=== PATIENT | female | born 1945 | race Caucasian/White ===

== ENCOUNTER 2016-03-28 12:15 | Inpatient (IN) | payer OTHER ==
[2016-05-09 12:45] LABS: % IMMATURE GRANULYOCYTES 0.3 % (0.0-1.1); ABSOLUTE IMMATURE GRANULOCYTES 0.02 10^3/uL (0.00-0.10); ADD DIFF? NO; ADD MORPH? NO; ADD SCAN? NO; ATYPICAL LYMPHOCYTE FLAG 0 (0-99); FRAGMENT RBC FLAG 0 (0-99); HEMATOCRIT 44.5 % (38.0-47.0); HEMOGLOBIN 14.1 g/dL (12.6-16.3); LEFT SHIFT FLG 0 (0-99); LIPEMIA HEMOLYSIS FLAG 80 (0-99); MEAN CELL HEMOGLOBIN 30.3 pg (27.9-34.1); MEAN CELL HEMOGLOBIN CONCENTR. 31.7 g/dL (32.4-36.7); MEAN CELL VOLUME 95.5 fL (81.5-99.8); MEAN PLATELET VOLUME 9.2 fL (8.7-11.7); PLATELET CLUMPS FLAG 0 (0-99); PLATELET COUNT 335 10^3/uL (150-400); RED BLOOD CELL COUNT 4.66 10^6/uL (4.18-5.33); RED CELL DISTRIBUTION WIDTH 14.6 % (11.5-15.2)
[2016-05-16] MEDS ORDERED: LIDOCAINE 1% 5 ML SDV ONE (06:32)
[2016-05-16] MEDS ORDERED: BUPIVACAINE/EPI 0.25% 30 ML SDV ONE (06:38)
[2016-05-16] MEDS ORDERED: THROMBIN (RECOMBINANT) 20,000 UNIT VIAL TP ONE (06:38)
[2016-05-16] MEDS ORDERED: BACITRACIN 50,000 UNITS/10 ML SYR IRR ONE (06:38)
[2016-05-16] MEDS ORDERED: LIDOCAINE 1% 5 ML SDV ID PRN (07:08)
[2016-05-16 07:16] LABS: INR 0.96 (0.83-1.16); PROTIME(PATIENT) 12.7 SEC (12.0-15.0)
[2016-05-16] MEDS ORDERED: MIDAZOLAM 2 MG/2 ML VIAL ONE (07:17)
[2016-05-16] MEDS ORDERED: PROPOFOL/EMULSION 500 MG/50 ML BOTTLE IV ONE ×3 (07:25→10:54)
[2016-05-16] MEDS ORDERED: DEXAMETHASONE 4 MG/ML VIAL ONE ×2 (07:25)
[2016-05-16] MEDS ORDERED: ROCURONIUM 50 MG/5 ML VIAL ONE (07:25)
[2016-05-16] MEDS ORDERED: METOCLOPRAMIDE 10 MG/2 ML VIAL ONE (07:25)
[2016-05-16] MEDS ORDERED: LIDOCAINE 2% 100 MG/5 ML SYR IVP ONE (07:25)
[2016-05-16] MEDS ORDERED: PHENYLEPHRINE 10 MG/ML SDV ONE (07:25)
[2016-05-16] MEDS ORDERED: traMADol 50 MG TAB PO PRN (08:11)
[2016-05-16] MEDS ORDERED: DOCUSATE SODIUM 100 MG CAP PO PRN (08:11)
[2016-05-16] MEDS ORDERED: Epinephrine [Epipen 0.3 Mg] IM PRN (08:11)
[2016-05-16] MEDS ORDERED: LACTULOSE 20 GM/30 ML UDCUP PO PRN (08:20)
[2016-05-16] MEDS ORDERED: HYDROmorphONE/DILAUDID 1 MG/ML SYR IVP PRN (08:20)
[2016-05-16] MEDS ORDERED: ONDANSETRON 4 MG/2 ML VIAL IVP PRN (08:20)
[2016-05-16] MEDS ORDERED: BISACODYL 10 MG SUPP PR PRN (08:20)
[2016-05-16] MEDS ORDERED: DIAZEPAM 5 MG TAB PO PRN (08:20)
[2016-05-16] MEDS ORDERED: HYDROmorphONE/DILAUDID 6 MG/30 ML PCA IV PRN (08:20)
[2016-05-16] MEDS ORDERED: MAGNESIUM HYDROXIDE 30 ML UDCUP PO PRN (08:20)
[2016-05-16] MEDS ORDERED: DIAZEPAM 10 MG/2 ML SYR IVP PRN (08:20)
[2016-05-16] MEDS ORDERED: NALOXONE HCL 0.4 MG/ML INJ IVP PRN (08:20)
[2016-05-16] MEDS ORDERED: ACETAMINOPHEN 325 MG TAB PO PRN (08:20)
[2016-05-16] MEDS ORDERED: ONDANSETRON DISINTEGRATING 4 MG TAB PO PRN (08:20)
[2016-05-16] MEDS ORDERED: POLYETHYLENE GLYCOL 3350 17 GM PKT PO PRN (08:20)
[2016-05-16] MEDS ORDERED: diphenhydrAMINE 25 MG CAP PO PRN (08:20)
[2016-05-16] MEDS ORDERED: NS W/ 20 KCl/L 1,000 ML IV SCH (08:30)
[2016-05-16] MEDS ORDERED: NEOMY SULF/BACITRAC ZN/POLY 30 GM OINTTUBE TP ONE (13:49)
[2016-05-16] MEDS ORDERED: fentaNYL 100 MCG/2 ML INJ ONE (13:49)
[2016-05-16] MEDS ORDERED: HYDROmorphONE/DILAUDID 2 MG/ML SYR ONE (13:57)
[2016-05-16] MEDS ORDERED: DIAZEPAM 10 MG/2 ML SYR ONE (14:07)
--- NOTE | 2016-05-16 14:08 | SOAPPROG ---
SOAP Progress Note Assessment/Plan: Post Op Visit: S: Awake and alert. NAD. Pt with expected lower back pain O: AFVSS/PERRLA/EOMI no droop CN 2-12 grossly intact +lt touch SHOBHA x [address] A/P: 70 yo female that is s/p TLIF at L5/S1 with new PSF L3-S1 -orders in place -call with any questions or concerns -pt seen by Dr Armas as well 05/16/16 14:05 Objective: Laboratory Results 05/09/16 12:30 PT 12.7 SEC (12.0-15.0) 05/16/16 06:35 INR 0.96 (0.83-1.16) 05/16/16 06:35 ICD10 Worksheet Patient Problems: Problems Problem Status Onset Cellulitis of foot Active Abscess of toe of right foot Acute Arthrodesis status Acute Cellulitis of toe of right foot Acute Lumbar radiculitis Acute Lumbar stenosis Acute Olecranon bursitis of left elbow Acute - ICD10 Problem Qualifiers (1) Arthrodesis status
[2016-05-16] MEDS: NS IV ONE ×2 (14:42→17:39)
[2016-05-16] MEDS: CHLORHEXIDINE GLUC HIBICLENS 118 ML BTL TP ONE ×2 (14:42→17:39)
[2016-05-16] MEDS: DAPTOMYCIN IV ONE ×2 (14:42→17:39)
[2016-05-16] MEDS: LR 1,000 ML IV ONE ×2 (14:43→17:39)
[2016-05-16] MEDS: FAMOTIDINE 20 MG/NACL 50 ML IV SCH ×3 (14:44→22:29)
[2016-05-16] MEDS: CYANO/VITAMIN B12 100 MCG TAB PO SCH ×3 (14:44→22:27)
[2016-05-16] MEDS: CALCIUM CARB W/VIT D 500 MG TAB PO SCH ×2 (14:44→17:40)
[2016-05-16] MEDS: PREGABALIN 50 MG CAP PO SCH ×3 (14:44→22:28)
[2016-05-16] MEDS: SULFAMETHOX/TMP 800/160 MG 1 TAB PO SCH ×3 (14:44→22:47)
[2016-05-16] MEDS: POTASSIUM CL 20 MEQ TAB PO SCH ×2 (14:45→17:41)
[2016-05-16] MEDS ORDERED: HYDROCORTISONE 100 MG/2 ML VIAL IVP ONE (14:52)
[2016-05-16] MEDS ORDERED: DEXMEDETOMIDINE HCL 400 MCG in NS 100 ML IV SCH ×2 (15:00)
--- NOTE | 2016-05-16 15:28 | GOP ---
[f rep st] OPERATIVE REPORT DATE OF OPERATION: 05/16/2016 SURGEON: Charli Armas MD STUDENT RECRUITER: Yunier Cabral PA-C. 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 PROCEDURE PERFORMED: Removal of posterior segmental instrumentation L3, L4, and L5, new posterior s egmental instrumentation L3, L4, L5, S1, spinal stereotaxy, right L4-5 re-do exploration of the righ t lateral recess and decompression of the exiting L4 nerve root and right lateral recess decompressi on of the L5 nerve root ([id number]), posterolateral arthrodesis only L4-5 ([id number]), posterolateral and in tervertebral arthrodesis with decompression L5-S1 ([id number]), placement of biomechanical intervertebral device L5-S1 ([id number]), repair of L5-S1 midline durotomy without laminectomy, microscope, same-incisi on bone graft harvest. FINDINGS: ESTIMATED BLOOD LOSS: 350 cc. DESCRIPTION OF PROCEDURE: The patient was taken to the operating room, placed in supine position. General anesthesia was begun. She was flipped prone onto the Isaias table. Care was taken to pad all points of contact. Her back was sterilely prepped 4 separate times. 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 She was sterilely draped in the usual fashion. We opened the prior incision, exposed from the sp inous process of L2 and the prior hardware at L3, 4, 5, all way down to S1. We were exposing L5-S1 and we were using the plasma blade for our dissection because of the prior hardware. There was wide splaying of the L5-S1 lamina because of the kyphosis and, really, an abnormal space measuring over 2 cm between the L5 lamina and the S1 lamina. A small midline durotomy was made here using the plas ma blade as we were dissecting. We placed a small cottonoid into this defect and some CSF did leak, but we continued our exposure and removed all over her screws. The hardware was completely intact. We then decorticated all the posterolateral bone bilaterally at L3-4, L4-5 and L5-S1, and denuded the bilateral L5-S1 facet joints and the sacral ala bilaterally. This was done to ensure posterolat eral arthrodesis. We attached the Stealth reference frame to the S1 spinous process, performed an O -arm spin, and using frameless Stealth stereotaxy, we placed pedicle screws at S1. We used 7.5 mm s crews at L5. We inspected the scan and indeed she did have a pseudoarthrosis at L4-5. There was so lid bony union at L3-4. We placed bilateral screws at L3. These L3 screws and the L4 screws were t he same diameter as the prior screws. We placed 7.5 mm screws at L5 because this hole was slightly enlarged by the pseudarthrosis. We placed a 6.5 mm screws at S1, had excellent bony purchase. Her bone was indeed somewhat soft, presumably due to the steroid use. We took 90 mm rods, placed them d own over the screws, and got some reduction of her anterior kyphosis between L3 and the sacrum. We final-tightened the cap screws according to company specification. We then introduced the operating microscope and under the scope we drilled bilateral laminectomy at L5-S1 and opened ligamentum flav um on the patient's left-hand side. The small durotomy was just to the right in the midline at L5-S 1. As we worked our way over to the right where the infected durotomy was, the dura itself was firm ly adherent to the L5 arch. This was not present on the left-hand side. It was also firmly adheren t to the S1 arch. This took considerable time under the microscope to dissect the ligamentum flavum free from the dura. We were eventually able to completely circumscribe the midline area of the dur otomy and then worked our way over in the right lateral recess and decompressed the S1 root adjacent to the S1 pedicle. The rostral lamina of L5 on the right-hand side was completely adherent to the dura and could not be . We were able to completely isolate the small midline durotomy gilberto uring about 3 mm in length. There was a durotomy made with the plasma blade and the edges of the du ra looked very healthy. We placed a 0.25 x 0.25 mm cottonoid into the dura to ensure the nerve root s were held well away from the small durotomy, and we closed it using a combination of interrupted a nd running 6-0 Prolene sutures, and we were able to remove the 0.25 x 0.25 mm cottonoid and then we completely closed in watertight fashion. We never saw any additional CSF leaking from this area. U nder the scope, we then worked diligently in the right neural foramen at L5-S1 and, indeed, we perfo rmed a complete facetectomy on that side, and the L5-S1 disc was hard and calcified and protruding u p into the L5 nerve root. The superior articular process of the sacrum also was consistent with wha t we had seen on the MRI was protruding upward into the L5 nerve root. There was remarkable samy anali on the nerve in the neural foramen. We then worked our way along the L5 nerve root medially up adjacent to the L5 pedicle and continued decompressing, disconnecting the pars interarticularis fro m the rostral arch of L5, and this allowed the rostral arch of L5 to float up off the lateral thecal sac, performing a nice decompression, even though we could not completely remove this bone. We fol lowed the lateral border of L5 up to the L4-5 level where there was substantial scar, and then worke d our way along the rostral aspect of the L5 pedicle and the neural foramen where we removed some of the prior scar tissue. The exiting L4 nerve root was identified and deep to the L4 root at the dis k space was calcified bony hypertrophy coming out of the disk. We then removed this material, fract ured down into the disk space, and it was removed. It was easily from the exiting L4 nerv e root and we worked our way under the thecal sac, decompressing the lateral thecal sac. This was a re-do decompression at L4-5 and was an additional procedure that we had made the decision to do thi s based upon our intraoperative O-arm imaging that did indeed demonstrate some calcification within the right lateral recess at L4-5. There is also similar findings at L5-S1, interestingly. We then turned our attention down to L5-S1, where we drilled out the large bone spur coming out of the disk space into the L5 nerve root, protecting the nerve root with a nerve root retractor, and this bone w as completely removed. We then completely removed the disk and the cartilaginous endplates at L5-S1 and progressively sized for our implant at that level. We placed a little BMP in the disk space an d chose a 7 x 23 mm device. We had achieved excellent decompressions at L4-5 and the right lateral recess at L5-S1 and L4-5. We had decompressed the exiting L4 root in its foramen, the exiting L5 ne rve root in its foramen, and even S1 root. We expanded the L5-S1 intervertebral device under fluoro scopic guidance. We then decorticated all the posterolateral bone from L3 to S1. We ensured all th e cap screws were torqued to company specification. We placed the remaining BMP posterolaterally bi laterally at L4-5, L5-S1. We did not place any additional up at L3-4 where there was solid bony uni on. We then performed Valsalva to 40 and there was absolutely no leakage of CSF and we were happy w ith the watertight closure. Not even a single molecule of water could be seen emanating from our 6- 0 Prolene closure. We then placed a subfascial drain, closed the incision in multiple layers using Vicryl sutures. A running PDS was placed in the skin itself. The patient was reversed from anesthe josr, extubated, and transferred to the recovery room in stable condition. COMPLICATIONS: Midline durotomy L5-S1. HARDWARE: [employer] Solera pedicle screw instrumentation with a [employer] Elevate cage. A 7 x 23 m m cage was placed at L5-S1. INDICATIONS FOR THE PROCEDURE: The patient is a 70-year-old who underwent an L3-4, L4-5 TLIF and fu anali last year with good clinical result. She did develop a superior endplate compression deformity of L5 postoperatively, but there was no evidence of hardware failure per se. She is on chronic carri roids. Clinically, she did well despite this, but it did lead to increasing kyphosis at the site of her surgery at L4-5 only. She later developed a recurrent right L5 radiculopathy and MRI did demon strate some right lateral recess stenosis at the L4-5 level. There did not appear to be clear hardw are loosening, but in the interim she had developed severe right L5-S1 foraminal stenosis of the exi ting L5 nerve root, and there was bony osteophyte projections from the disk space up into the nerve itself at L5-S1. I suggested adjacent segment decompression, exploration of spinal fusion, removal of the hardware, and a revision of the fusion L4-5 if necessary. The risk of screw and hardware mal position, malfunction, CSF leak, nerve injury, continued symptoms was discussed. She understood maribeth t the chronic steroid use puts her at a higher risk of pseudoarthrosis and this was the significant perioperative risk factor. She wanted to proceed despite the risks. We did not know of another way to get her relief from the terrible pain she is experiencing. She had some left-sided pain as well , but the right was dominant. /[id number]/MODL
--- NOTE | 2016-05-16 15:33 | GCON ---
[f rep ] CONSULTATION [facility] MED[facility] CONSULTATION DATE OF CONSULTATION: 05/16/2016 REFERRING PHYSICIAN: Charli Armas MD REASON FOR CONSULTATION: Postoperative medical management. HISTORY OF PRESENT ILLNESS: This is a 70-year-old female who was seen in the PACU postoperative day 0 after undergoing hardware removal at L3 through L5 with a TLIF at L5-S1 in a new fusion at L3 through S1 whom we have been asked to see for medical management. During the time of my exam, the patient is having significant pain in her back and right leg. She states prior to her surgery today she has been in her usual state of health. She does not have any history of heart disease. She has not been having any chest pain. She has not been having any fevers or chills. She has had a pulmonary embolism in 2013 which she tells me was after having a surgery. She has been on Coumadin. The patient also has a history of lupus for which she takes prednisone. She denies any other treatment with biologic medications. She tells me her lupus has been fairly well controlled. PAST MEDICAL HISTORY: 1. Lupus. 2. Postoperative pulmonary embolism in 2013. 3. Migraines. 4. Fibromyalgia. 5. Hypertension. 6. Systolic heart murmur. 7. Chronic left olecranon bursitis. 8. Chronic back and neck pain. On chronic continuous opioids. 9. Osteomyelitis of the right 3rd toe, status post amputation. PAST SURGICAL HISTORY: 1. Appendectomy. 2. Parathyroidectomy. 3. Right shoulder surgery. 4. Multiple back surgeries. 5. Tonsillectomy. 6. Podiatric surgery. 7. Right 3rd toe amputation for osteomyelitis. HOME MEDICATIONS: Trazodone, Ultram, prednisone, morphine SR, Percocet, Klonopin, Celebrex, Coumadin 4 mg daily, Bactrim 1 tablet p.o. twice daily, Imitrex p.r.n., Lyrica 100 mg twice daily, potassium chloride, fish oil, multivitamin, magnesium oxide, lisinopril 20 mg at bedtime, Dilaudid 2 mg p.o. q.4-6 hours p.r.n. pain, Neurontin 300 mg three times daily, efinaconazole, EpiPen p.r.n., Colace, Voltaren, Flexeril, vitamin B12, calcium, Fosamax, Fioricet. ALLERGIES: Reviewed. Refer to [facility]ar for details. Fentanyl, Keflex, penicillin, bees. SOCIAL HISTORY: The patient has no documented history of tobacco use or substance abuse. She drinks alcohol occasionally. FAMILY HISTORY: Reviewed and noncontributory. REVIEW OF SYSTEMS: Comprehensive 10-point review of systems was done and is negative except for as mentioned in the HPI. PHYSICAL EXAM: VITAL SIGNS: Blood pressure 108/61, heart rate 80, respiratory rate 18, O2 saturation 91% on room air, temperature afebrile. GENERAL: The patient appears to be uncomfortable, alert, answering questions appropriately. HEAD: Normocephalic, atraumatic. EYES: PERRLA. Sclerae anicteric. MOUTH: Moist mucous membranes. NECK: Supple. No lymphadenopathy. CARDIOVASCULAR: S1, S2. No JVD. No lower extremity edema. PULMONARY: Lungs are clear. No wheezes, rales, or rhonchi. ABDOMEN: Soft, mildly distended. No guarding or rebound tenderness. Normoactive bowel sounds. EXTREMITIES: No clubbing or cyanosis. NEURO: The patient moves all extremities but has limited range of motion in right hip flexion due to pain. There are no obvious sensory deficits. SKIN: Clear. No rashes. LABORATORY STUDIES: From 05/09/2016 were reviewed. WBC 6.6, hemoglobin 14.1, hematocrit 44.5, platelets 335. INR on 05/16/2016 was subtherapeutic at 0.96. ASSESSMENT AND PLAN: This is a 70-year-old female, postoperative day 0, hardware removal at L3 through L5 with TLIF L5-S1 and new fusion at L3 through S1 by Dr. Armas whom we have been asked to consult on for postoperative medical management. 1. History of postoperative pulmonary embolism in 2013. Plan: The patient is certainly at risk for recurrent venous thromboembolism in the postoperative state. Would recommend resuming anticoagulation as soon as it is deemed safe by the neurosurgical team. 2. History of lupus on chronic prednisone with postoperative hypotension Plan: Hydrocortisone 100mg IV x 1. Will continue home dose of prednisone and consider further stress dosing as indicated for hypotension. Will also order metabolic panel for the morning to check electrolytes and renal function. 3. History of hypertension. Plan: The patient is on CORONA inhibitor, which we will hold due to hypotension 4. History of chronic pain with chronic continuous opioid use and severe postoperative pain Plan: Would resume or her oral long-acting morphine and continue to treat breakthrough pain as needed with IV Dilaudid as ordered. 5. History of chronic left olecranon septic bursitis. Plan: Continue suppressive Bactrim. Thank you for allowing me to participate in the care of the patient. The hospitalist service will continue to follow along with you. /[id number]/MODL MTDD
[2016-05-16] MEDS ORDERED: HYDROmorphONE/DILAUDID 1 MG/ML SYR ONE ×2 (15:50→18:07)
[2016-05-16] MEDS: OXYCODONE/APAP 5/325 TAB PO SCH ×2 (17:40→22:27)
[2016-05-16] MEDS: morphINE SR 30 MG TAB PO SCH ×2 (17:41→22:28)
[2016-05-16] MEDS ORDERED: LISINOPRIL 20 MG TAB PO SCH (21:00)
[2016-05-16] MEDS: GABAPENTIN 300 MG CAP PO SCH ×2 (22:27→23:39)
[2016-05-16] MEDS: traZODone 50 MG TAB PO SCH (22:28)
[2016-05-16] MEDS: CYCLOBENZAPRINE 10 MG TAB PO SCH (22:28)
[2016-05-16] MEDS: SUMAtriptan 50 MG TAB PO PRN (22:28)
[2016-05-16] MEDS: ACET/CAFFEINE/BUTA FIORICET 1 EACH TAB PO PRN (22:47)
[2016-05-16] MEDS: EFINACONAZOLE TP SCH (23:38)
[2016-05-16] MEDS: MAGNESIUM OXIDE 400 MG TAB PO SCH (23:38)
[2016-05-17] MEDS: OXYCODONE/APAP 5/325 TAB PO SCH ×5 (03:05→23:27)
[2016-05-17] MEDS: morphINE SR 30 MG TAB PO SCH ×3 (05:21→23:27)
[2016-05-17] MEDS: GABAPENTIN 300 MG CAP PO SCH ×3 (05:22→23:27)
[2016-05-17] MEDS: clonazePAM 1 MG TAB PO SCH (05:22)
[2016-05-17] MEDS: predniSONE 5 MG TAB PO SCH (05:22)
[2016-05-17 05:38] LABS: % IMMATURE GRANULYOCYTES 0.7 % (0.0-1.1); ABSOLUTE IMMATURE GRANULOCYTES 0.08 10^3/uL (0.00-0.10); ADD DIFF? NO; ADD MORPH? NO; ADD SCAN? NO; ATYPICAL LYMPHOCYTE FLAG 0 (0-99); FRAGMENT RBC FLAG 0 (0-99); HEMATOCRIT 30.4 % (38.0-47.0); HEMOGLOBIN 9.8 g/dL (12.6-16.3); LEFT SHIFT FLG 0 (0-99); LIPEMIA HEMOLYSIS FLAG 80 (0-99); MEAN CELL HEMOGLOBIN 31.1 pg (27.9-34.1); MEAN CELL HEMOGLOBIN CONCENTR. 32.2 g/dL (32.4-36.7); MEAN CELL VOLUME 96.5 fL (81.5-99.8); MEAN PLATELET VOLUME 9.5 fL (8.7-11.7); PLATELET CLUMPS FLAG 0 (0-99); PLATELET COUNT 237 10^3/uL (150-400); RED BLOOD CELL COUNT 3.15 10^6/uL (4.18-5.33); RED CELL DISTRIBUTION WIDTH 14.3 % (11.5-15.2)
[2016-05-17 05:58] LABS: ANION GAP 3 mEq/L (8-16); CALCIUM 7.8 mg/dL (8.5-10.4); CARBON DIOXIDE 26 mEq/l (22-31); CHLORIDE 108 mEq/L (97-110); CREATININE 0.6 mg/dL (0.6-1.0); GLOMERULAR FILTRATION RATE > 60; GLUCOSE 129 mg/dL (70-100); POTASSIUM 4.6 mEq/L (3.5-5.2); SODIUM 137 mEq/L (134-144)
--- NOTE | 2016-05-17 07:35 | NEUSURGPN ---
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 NAD. Eating/drinking and voiding. No schwartz/neck/chest/abd or gu complaints. No f/c/n/v/d. Objective: AFVSS/PERRLA/EOMI no droop CN 2-12 grossly intact +lt touch SHOBHA x [address] Neuro Check Frequency: per routine Urinary Catheter in Place: No Catheter Insertion Date: 05/16/16 - Physician Discussed Patient with : Pawel Patient Seen by : Pawel Neurosurgery Physical Exam - Vitals, I&O, Labs I and O 05/16/16 05/17/16 05/18/16 05:59 05:59 05:59 Intake Total 4438 Output Total 2210 Balance 2228 Intake: Oral (ml) 700 IV Intake (ml) 3667 IV Infused (ml) 71 Dexmedetomidine HCl 400 71 mcg In Ns 100 ml @ Per Protocol IV CONT PADMINI Rx#: [id number] Output: Urine (ml) 1500 Catheter 1500 Estimated Blood Loss (ml) 350 Wound Drainage (ml) 360 Right Back Isaais Jaimes 360 Vital Signs Temp Pulse Resp BP Pulse Ox 36.6 C 57 L 10 L 96/52 L 98 05/16/16 21:45 05/17/16 06:00 05/17/16 06:00 05/17/16 06:00 05/17/16 06:00 Laboratory Results 05/17/16 05:30 05/17/16 05:30 ICD10 Worksheet Patient Problems: Problems Problem Status Onset Cellulitis of foot Active Abscess of toe of right foot Acute Arthrodesis status Acute Cellulitis of toe of right foot Acute Lumbar radiculitis Acute Lumbar stenosis Acute Olecranon bursitis of left elbow Acute - ICD10 Problem Qualifiers (1) Arthrodesis status
[2016-05-17] MEDS: FAMOTIDINE 20 MG/NACL 50 ML IV SCH (09:13)
[2016-05-17] MEDS: PREGABALIN 50 MG CAP PO SCH ×2 (09:13→20:30)
[2016-05-17] MEDS: CYANO/VITAMIN B12 100 MCG TAB PO SCH ×2 (09:13→20:29)
[2016-05-17] MEDS: HYDROmorphONE/DILAUDID 2 MG TAB PO PRN ×3 (09:14→22:11)
[2016-05-17] MEDS: oxyCODONE IR 5 MG TAB PO PRN ×2 (09:14→17:06)
[2016-05-17] MEDS: SULFAMETHOX/TMP 800/160 MG 1 TAB PO SCH ×2 (11:11→20:29)
[2016-05-17] MEDS: CALCIUM CARB W/VIT D 500 MG TAB PO SCH (11:24)
[2016-05-17] MEDS: POTASSIUM CL 20 MEQ TAB PO SCH (13:02)
[2016-05-17] MEDS: METHOCARBAMOL 750 MG TAB PO PRN (14:40)
--- NOTE | 2016-05-17 16:21 | HOSPPROG ---
Hospitalist Progress Note Assessment/Plan: # improving post op hypotension -cont to hold katie -1 dose of stress dose steroids given yesterday #H/O PE resume anticoagulation once deemed safe by the neurosurgery team #H/O SLE on chronic prednisone -cont prednisone #H/O chronic left olecranon septic bursitis -cont bactrim will continue to follow Subjective: improved postop pain today. tolerating diet. no new complaints Objective: Vital Signs Temp Pulse Resp BP Pulse Ox 36.8 C 78 16 109/55 L 88 L 05/17/16 16:00 05/17/16 16:00 05/17/16 16:00 05/17/16 16:00 05/17/16 16:00 Laboratory Results 05/17/16 05:30 05/17/16 05:30 05/16/16 05/17/16 05/18/16 05:59 05:59 05:59 Intake Total 4438 300 Output Total 2210 540 Balance 2228 -240 PT 12.7 SEC (12.0-15.0) 05/16/16 06:35 INR 0.96 (0.83-1.16) 05/16/16 06:35 - Physical Exam Constitutional: no apparent distress, appears nourished, not in pain Cardiovascular: regular rate and rhythym, no murmur, rub, or gallop Respiratory: no respiratory distress, no rales or rhonchi, clear to auscultation Gastrointestinal: normoactive bowel sounds, soft, non-tender abdomen, no palpable masses, No guarding, No rebound Neurologic: AAOx3 ICD10 Worksheet Patient Problems: Problems Problem Status Onset Cellulitis of foot Active Olecranon bursitis of left elbow Acute Lumbar radiculitis Acute Lumbar stenosis Acute Arthrodesis status Acute Abscess of toe of right foot Acute Cellulitis of toe of right foot Acute
[2016-05-17] MEDS: MAGNESIUM OXIDE 400 MG TAB PO SCH (17:04)
[2016-05-17] MEDS: FAMOTIDINE 20 MG TAB PO SCH (20:29)
[2016-05-17] MEDS: CYCLOBENZAPRINE 10 MG TAB PO SCH (20:30)
[2016-05-17] MEDS: traZODone 50 MG TAB PO SCH (20:30)
[2016-05-17] MEDS: EFINACONAZOLE TP SCH (22:11)
[2016-05-18] MEDS: OXYCODONE/APAP 5/325 TAB PO SCH ×4 (05:36→23:26)
[2016-05-18] MEDS: GABAPENTIN 300 MG CAP PO SCH ×3 (05:36→23:26)
[2016-05-18] MEDS: clonazePAM 1 MG TAB PO SCH (05:36)
[2016-05-18] MEDS: morphINE SR 30 MG TAB PO SCH ×3 (05:36→23:26)
[2016-05-18] MEDS: predniSONE 5 MG TAB PO SCH (05:36)
[2016-05-18] MEDS: SULFAMETHOX/TMP 800/160 MG 1 TAB PO SCH ×2 (09:41→19:58)
[2016-05-18] MEDS: FAMOTIDINE 20 MG TAB PO SCH ×2 (09:41→19:58)
[2016-05-18] MEDS: PREGABALIN 50 MG CAP PO SCH ×2 (09:41→19:58)
[2016-05-18] MEDS: CYANO/VITAMIN B12 100 MCG TAB PO SCH ×2 (09:41→19:58)
--- NOTE | 2016-05-18 10:03 | NEUSURGPN ---
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 Will continue this am and my evaluate for removal later today -call with any questions or concerns -discussed with Dr Armas Subjective: right leg pain slightly improved Objective: NAD A&Ox3 MAEx4 5/5 and equal in BUE and BLE. Incisional dressing c/d/i Catheter Insertion Date: 05/16/16 - Physician Discussed Patient with : Pawel Neurosurgery Physical Exam - Vitals, I&O, Labs I and O 05/17/16 05/18/16 05/19/16 05:59 05:59 05:59 Intake Total 4438 1000 Output Total 2210 1450 Balance 2228 -450 Intake: Oral (ml) 700 700 IV Intake (ml) 3667 IV Infused (ml) 71 300 Dexmedetomidine HCl 400 71 mcg In Ns 100 ml @ Per Protocol IV CONT PADMINI Rx#: [id number] NS W/ 20 KCl/L 1,000 ml @ 300 75 mls/hr IV CONT PADMINI Rx #:[id number] Output: Urine (ml) 1500 1200 Catheter 1500 1200 Estimated Blood Loss (ml) 350 Wound Drainage (ml) 360 250 Right Back Isaias Jaimes 360 250 Other: Intake Quantity Yes Sufficient Number of Voids Catheter 2 Toilet 1 Number of Stools Toilet 1 Vital Signs Temp Pulse Resp BP Pulse Ox 36.6 C 73 16 90/57 L 94 05/18/16 07:44 05/18/16 07:44 05/18/16 07:44 05/18/16 07:44 05/18/16 07:44 Laboratory Results 05/17/16 05:30 05/17/16 05:30 ICD10 Worksheet Patient Problems: Problems Problem Status Onset Cellulitis of foot Active Abscess of toe of right foot Acute Arthrodesis status Acute Cellulitis of toe of right foot Acute Lumbar radiculitis Acute Lumbar stenosis Acute Olecranon bursitis of left elbow Acute
[2016-05-18] MEDS: CALCIUM CARB W/VIT D 500 MG TAB PO SCH (12:00)
[2016-05-18] MEDS: POTASSIUM CL 20 MEQ TAB PO SCH (12:01)
[2016-05-18] MEDS: METHOCARBAMOL 750 MG TAB PO PRN (12:06)
[2016-05-18] MEDS: HYDROmorphONE/DILAUDID 2 MG TAB PO PRN ×2 (12:06→19:58)
--- NOTE | 2016-05-18 13:35 | HOSPPROG ---
Hospitalist Progress Note Assessment/Plan: 70-year-old female in the postoperative setting from on spinal fusion. This is my 1st encounter with the patient, chart reviewed. Patient discussed with Joan Wolfe as well as Dr. Lm Luther. # improving post op hypotension -cont to hold katie -1 dose of stress dose steroids given -stable #H/O PE resume anticoagulation once deemed safe by the neurosurgery team -will start Lovenox bridge therapy on 05/19/2016 -reinitiate Coumadin in the future #H/O SLE on chronic prednisone -cont prednisone #H/O chronic left olecranon septic bursitis -cont bactrim will continue to follow Doing well today. MARITZA still in place. Disposition plan per Neurosurgery Subjective: Having some pain. Feels tired today. No significant or specific other complaints at this time. Objective: Vital Signs Temp Pulse Resp BP Pulse Ox 36.6 C 73 16 90/57 L 94 05/18/16 07:44 05/18/16 07:44 05/18/16 07:44 05/18/16 07:44 05/18/16 07:44 Laboratory Results 05/17/16 05:30 05/17/16 05:30 05/17/16 05/18/16 05/19/16 05:59 05:59 05:59 Intake Total 4438 1000 Output Total 2210 1450 30 Balance 2228 -450 -30 PT 12.7 SEC (12.0-15.0) 05/16/16 06:35 INR 0.96 (0.83-1.16) 05/16/16 06:35 - Physical Exam Constitutional: appears nourished, chronically ill appearing, uncomfortable Eyes: PERRL, anicteric sclera, EOMI Ears, Nose, Mouth, Throat: moist mucous membranes, hearing normal, ears appear normal Cardiovascular: regular rate and rhythym, No JVD, No edema Respiratory: no respiratory distress, no rales or rhonchi, reduced air movement Gastrointestinal: No tenderness, No ascites, No guarding Skin: warm, normal color, No erythema Musculoskeletal: no joint effusions, pain with ROM, generalized weakness Neurologic: AAOx3 Psychiatric: not anxious, not encephalopathic, thought process linear ICD10 Worksheet Patient Problems: Problems Problem Status Onset Cellulitis of foot Active Abscess of toe of right foot Acute Arthrodesis status Acute Cellulitis of toe of right foot Acute Lumbar radiculitis Acute Lumbar stenosis Acute Olecranon bursitis of left elbow Acute
[2016-05-18] MEDS: MAGNESIUM OXIDE 400 MG TAB PO SCH (18:35)
[2016-05-18] MEDS: traZODone 50 MG TAB PO SCH (19:57)
[2016-05-18] MEDS: CYCLOBENZAPRINE 10 MG TAB PO SCH (19:58)
[2016-05-18] MEDS: EFINACONAZOLE TP SCH (19:59)
[2016-05-19] MEDS: OXYCODONE/APAP 5/325 TAB PO SCH ×4 (05:37→23:43)
[2016-05-19] MEDS: morphINE SR 30 MG TAB PO SCH ×3 (05:38→23:43)
[2016-05-19] MEDS: predniSONE 5 MG TAB PO SCH (05:38)
[2016-05-19] MEDS: clonazePAM 1 MG TAB PO SCH (05:38)
[2016-05-19] MEDS: GABAPENTIN 300 MG CAP PO SCH ×3 (05:38→23:44)
[2016-05-19] MEDS: PREGABALIN 50 MG CAP PO SCH ×2 (09:31→20:21)
[2016-05-19] MEDS: SULFAMETHOX/TMP 800/160 MG 1 TAB PO SCH ×2 (09:31→20:23)
[2016-05-19] MEDS: FAMOTIDINE 20 MG TAB PO SCH ×2 (09:31→20:21)
[2016-05-19] MEDS: CYANO/VITAMIN B12 100 MCG TAB PO SCH ×2 (09:31→20:21)
--- NOTE | 2016-05-19 10:35 | HOSPPROG ---
Hospitalist Progress Note Assessment/Plan: 70-year-old female in the postoperative setting from on spinal fusion. # improving post op hypotension -cont to hold katie -1 dose of stress dose steroids given -stable #H/O PE resume anticoagulation -will start Lovenox bridge therapy today -reinitiate Coumadin today -reviewed with the nurse #H/O SLE on chronic prednisone -cont prednisone #H/O chronic left olecranon septic bursitis -cont bactrim will continue to follow Doing well today. Disposition plan per Neurosurgery Subjective: Up in the chair. Feels well. Pain better. Objective: Vital Signs Temp Pulse Resp BP Pulse Ox 36.9 C 80 16 93/53 L 92 05/19/16 08:00 05/19/16 08:00 05/19/16 08:00 05/19/16 08:00 05/19/16 08:00 Laboratory Results 05/17/16 05:30 05/17/16 05:30 05/18/16 05/19/16 05/20/16 05:59 05:59 05:59 Intake Total 1000 1350 Output Total 1450 30 Balance -450 1320 PT 12.7 SEC (12.0-15.0) 05/16/16 06:35 INR 0.96 (0.83-1.16) 05/16/16 06:35 - Physical Exam Constitutional: no apparent distress, appears nourished Eyes: PERRL, anicteric sclera Ears, Nose, Mouth, Throat: moist mucous membranes, hearing normal Cardiovascular: No JVD, No edema Respiratory: no respiratory distress, reduced air movement Gastrointestinal: No tenderness, No ascites Skin: warm, normal color, abrasion (on face) Musculoskeletal: muscular tenderness, generalized weakness Neurologic: AAOx3 Psychiatric: interacting appropriately, not anxious, not encephalopathic ICD10 Worksheet Patient Problems: Problems Problem Status Onset Cellulitis of foot Active Olecranon bursitis of left elbow Acute Lumbar radiculitis Acute Lumbar stenosis Acute Arthrodesis status Acute Abscess of toe of right foot Acute Cellulitis of toe of right foot Acute
[2016-05-19] MEDS: ENOXAPARIN 80 MG/0.8 ML SYR SC SCH ×2 (11:36→20:21)
[2016-05-19] MEDS: POTASSIUM CL 20 MEQ TAB PO SCH (11:37)
[2016-05-19] MEDS: CALCIUM CARB W/VIT D 500 MG TAB PO SCH (11:37)
--- NOTE | 2016-05-19 13:01 | NEUSURGPN ---
Assessment/Plan: Assessment: 70 yo female that is s/p TLIF at L5/S1 with new PSF L3-S1 POD #3 Plan: -Overall doing well. Has continued right leg pain > left -PT/OT ordered -brace when out of bed -IM on board to help with medical management-appreciate input and care -Optimize po meds for pain control -post op show good hardware placement -MARITZA x 1- will pull today -call with any questions or concerns -Dispo planning- most likely will go home with home health tomorrow -Ok to restart anti-coagulation today. -discussed with Dr Armas Subjective: right leg pain slightly improved, still feels overall weaker than left. Back pain tolerable on pain meds. Will have her pain doctor manage her medications on discharge but will need muscle relaxant. Objective: NAD A&Ox3 MAEx4 5/5 and equal in BUE and BLE. Incisional dressing c/d/i Catheter Insertion Date: 05/16/16 - Physician Discussed Patient with : [facility] Physical Exam - Vitals, I&O, Labs I and O 05/18/16 05/19/16 05/20/16 05:59 05:59 05:59 Intake Total 1000 1350 Output Total 1450 30 Balance -450 1320 Intake: Oral (ml) 700 1350 IV Infused (ml) 300 NS W/ 20 KCl/L 1,000 ml @ 300 75 mls/hr IV CONT PADMINI Rx #:[id number] Output: Urine (ml) 1200 Catheter 1200 Wound Drainage (ml) 250 30 Right Back Isaias Jaimes 250 30 Other: Intake Quantity Yes Sufficient Number of Voids Catheter 2 Toilet 1 3 Number of Stools Toilet 1 Vital Signs Temp Pulse Resp BP Pulse Ox 36.9 C 80 16 93/53 L 92 05/19/16 08:00 05/19/16 08:00 05/19/16 08:00 05/19/16 08:00 05/19/16 08:00 Laboratory Results 05/17/16 05:30 05/17/16 05:30 ICD10 Worksheet Patient Problems: Problems Problem Status Onset Cellulitis of foot Active Abscess of toe of right foot Acute Arthrodesis status Acute Cellulitis of toe of right foot Acute Lumbar radiculitis Acute Lumbar stenosis Acute Olecranon bursitis of left elbow Acute
[2016-05-19 13:53] LABS: COLOR YELLOW; LEUKOCYTE ESTERASE,URINE 1+ (NEGATIVE); NITRITE,URINE POSITIVE (NEGATIVE)
[2016-05-19 14:07] LABS: BACTERIA TRACE /hpf (NONE SEEN); MUCUS TRACE /lpf (NONE-1+); WBC,URINE 25-50 /hpf (0-3)
[2016-05-19] MEDS: MAGNESIUM OXIDE 400 MG TAB PO SCH (17:34)
[2016-05-19] MEDS: HYDROmorphONE/DILAUDID 2 MG TAB PO PRN ×2 (17:38→21:59)
[2016-05-19] MEDS: EFINACONAZOLE TP SCH (20:21)
[2016-05-19] MEDS: oxyCODONE IR 5 MG TAB PO PRN (20:21)
[2016-05-19] MEDS: CYCLOBENZAPRINE 10 MG TAB PO SCH (20:21)
[2016-05-19] MEDS: traZODone 50 MG TAB PO SCH (20:21)
[2016-05-19] MEDS: WARFARIN SODIUM 4 MG TAB PO SCH (23:43)
[2016-05-19] MEDS: ACET/CAFFEINE/BUTA FIORICET 1 EACH TAB PO PRN (23:44)
[2016-05-19] MEDS: SUMAtriptan 50 MG TAB PO PRN (23:45)
[2016-05-20] MEDS: OXYCODONE/APAP 5/325 TAB PO SCH ×4 (05:47→23:45)
[2016-05-20] MEDS: morphINE SR 30 MG TAB PO SCH ×3 (05:47→23:46)
[2016-05-20] MEDS: clonazePAM 1 MG TAB PO SCH (05:47)
[2016-05-20] MEDS: predniSONE 5 MG TAB PO SCH (05:47)
[2016-05-20] MEDS: GABAPENTIN 300 MG CAP PO SCH ×3 (05:47→23:46)
[2016-05-20] MEDS: CYANO/VITAMIN B12 100 MCG TAB PO SCH ×2 (07:43→20:13)
[2016-05-20] MEDS: FAMOTIDINE 20 MG TAB PO SCH ×2 (07:43→20:13)
[2016-05-20] MEDS: PREGABALIN 50 MG CAP PO SCH ×2 (07:44→20:14)
[2016-05-20] MEDS: SULFAMETHOX/TMP 800/160 MG 1 TAB PO SCH ×2 (07:44→20:14)
[2016-05-20] MEDS: ENOXAPARIN 80 MG/0.8 ML SYR SC SCH ×2 (07:44→20:13)
--- NOTE | 2016-05-20 12:26 | HOSPPROG ---
Hospitalist Progress Note Assessment/Plan: 70-year-old female in the postoperative setting from a spinal fusion. # post op hypotension -resolved -cont to hold katie -1 dose of stress dose steroids given -stable #H/O PE resume anticoagulation -Lovenox bridge therapy -Coumadin -will need to cont bridge at time of dc -fu with PCP Antony Genao for INR eval - reviewed with pt #H/O SLE on chronic prednisone -cont prednisone #H/O chronic left olecranon septic bursitis -cont bactrim will continue to follow Doing well today. Disposition plan per Neurosurgery Reviewed with pt. She able to go home with [facility] Subjective: Feeling ok today. Had some significant pain last night. Better now. Objective: Vital Signs Temp Pulse Resp BP Pulse Ox 37.0 C 95 18 91/69 L 89 L 05/20/16 08:00 05/20/16 08:00 05/20/16 08:00 05/20/16 08:00 05/20/16 08:00 Laboratory Results 05/17/16 05:30 05/17/16 05:30 05/19/16 05/20/16 05/21/16 05:59 05:59 05:59 Intake Total 1350 750 Output Total 30 Balance 1320 750 PT 12.7 SEC (12.0-15.0) 05/16/16 06:35 INR 0.96 (0.83-1.16) 05/16/16 06:35 - Physical Exam Constitutional: no apparent distress, appears nourished Eyes: PERRL, anicteric sclera Ears, Nose, Mouth, Throat: moist mucous membranes, hearing normal Cardiovascular: No JVD, No edema Respiratory: no respiratory distress, reduced air movement Gastrointestinal: No tenderness, No ascites Skin: warm, normal color Musculoskeletal: no joint effusions, generalized weakness Neurologic: AAOx3 Psychiatric: not anxious, not encephalopathic, thought process linear ICD10 Worksheet Patient Problems: Problems Problem Status Onset Cellulitis of foot Active Olecranon bursitis of left elbow Acute Lumbar radiculitis Acute Lumbar stenosis Acute Arthrodesis status Acute Abscess of toe of right foot Acute Cellulitis of toe of right foot Acute
[2016-05-20] MEDS: POTASSIUM CL 20 MEQ TAB PO SCH (12:51)
[2016-05-20] MEDS: CALCIUM CARB W/VIT D 500 MG TAB PO SCH (12:51)
--- NOTE | 2016-05-20 14:38 | NEUSURGPN ---
Assessment/Plan: Assessment: 70 yo female that is s/p TLIF at L5/S1 with new PSF L3-S1 POD #4 Plan: -Overall doing well. Had severe pain overnight but improved now. -PT/OT -going well today, walking around the [place] -brace when out of bed -IM on board to help with medical management-appreciate input and care -Optimize po meds for pain control -post op show good hardware placement -call with any questions or concerns -Dispo planning- most likely will go home with home health tomorrow. -Restarted on anti-coagulation- managed per medicine -discussed with Dr Armas Subjective: Patient doing well this morning. Had severe case of pain last night but thinks it was due to working a lot more with PT yesterday. Nervouse about going home today due to pain overnight. Would like to stay one more night. Objective: NAD A&Ox3 MAEx4 5/5 and equal in BUE and BLE. Incisional dressing c/d/i Catheter Insertion Date: 05/16/16 - Physician Discussed Patient with : [facility] Physical Exam - Vitals, I&O, Labs I and O 05/19/16 05/20/16 05/21/16 05:59 05:59 05:59 Intake Total 1350 750 Output Total 30 Balance 1320 750 Intake: Oral (ml) 1350 750 Output: Wound Drainage (ml) 30 Right Back Isaias Jaimes 30 Other: Intake Quantity Yes Sufficient Number of Voids Toilet 3 6 Number of Stools Toilet 1 Vital Signs Temp Pulse Resp BP Pulse Ox 37.0 C 95 18 91/69 L 89 L 05/20/16 08:00 05/20/16 08:00 05/20/16 08:00 05/20/16 08:00 05/20/16 08:00 Laboratory Results 05/17/16 05:30 05/17/16 05:30 ICD10 Worksheet Patient Problems: Problems Problem Status Onset Cellulitis of foot Active Abscess of toe of right foot Acute Arthrodesis status Acute Cellulitis of toe of right foot Acute Lumbar radiculitis Acute Lumbar stenosis Acute Olecranon bursitis of left elbow Acute
[2016-05-20] MEDS: MAGNESIUM OXIDE 400 MG TAB PO SCH (17:39)
[2016-05-20] MEDS: HYDROmorphONE/DILAUDID 2 MG TAB PO PRN (18:37)
[2016-05-20] MEDS: traZODone 50 MG TAB PO SCH (20:13)
[2016-05-20] MEDS: CYCLOBENZAPRINE 10 MG TAB PO SCH (20:13)
[2016-05-20] MEDS: EFINACONAZOLE TP SCH (20:14)
[2016-05-20] MEDS: SUMAtriptan 50 MG TAB PO PRN (21:55)
[2016-05-20] MEDS: ACET/CAFFEINE/BUTA FIORICET 1 EACH TAB PO PRN (21:56)
[2016-05-20 23:13] VITALS: TEMP 98.3
[2016-05-20] MEDS: WARFARIN SODIUM 4 MG TAB PO SCH (23:45)
[2016-05-21] MEDS: GABAPENTIN 300 MG CAP PO SCH (05:43)
[2016-05-21] MEDS: predniSONE 5 MG TAB PO SCH (05:43)
[2016-05-21] MEDS: clonazePAM 1 MG TAB PO SCH (05:43)
[2016-05-21] MEDS: OXYCODONE/APAP 5/325 TAB PO SCH ×2 (05:43→12:35)
[2016-05-21] MEDS: morphINE SR 30 MG TAB PO SCH ×2 (05:43→12:35)
[2016-05-21 07:58] VITALS: BP 133/98; PULSE 94; RESP 16; O2SAT 90
--- NOTE | 2016-05-21 08:11 | NEUSURGPN ---
Assessment/Plan: Assessment: 70 yo female that is s/p TLIF at L5/S1 with new PSF L3-S1 POD #5 Plan: -Overall doing well. Had a godo night last night ready to go home -PT/OT - -brace when out of bed -IM on board to help with medical management-appreciate input and care- will need their input for discharge on how long to bridge with lovenox -Optimize po meds for pain control -post op show good hardware placement -call with any questions or concerns -Dispo planning- Home today -Restarted on anti-coagulation- managed per medicine -discussed with Dr Armas Subjective: Patient doing great this morning. Had restful night last night. No leg pain. ready to go home. Objective: NAD A&Ox3 MAEx4 08/03 and equal in BUE and BLE. Incisional dressing c/d/i Catheter Insertion Date: 05/16/16 - Physician Discussed Patient with : [facility] Physical Exam - Vitals, I&O, Labs I and O 05/20/16 05/21/16 05/22/16 05:59 05:59 05:59 Intake Total 750 300 Balance 750 300 Intake: Oral (ml) 750 300 Other: Intake Quantity Yes Yes Sufficient Number of Voids Toilet 6 2 Number of Stools Toilet 1 Vital Signs Temp Pulse Resp BP Pulse Ox 36.8 C 94 16 133/98 H 90 L 05/21/16 07:58 05/21/16 07:58 05/21/16 07:58 05/21/16 07:58 05/21/16 07:58 Laboratory Results 05/17/16 05:30 05/17/16 05:30 ICD10 Worksheet Patient Problems: Problems Problem Status Onset Cellulitis of foot Active Abscess of toe of right foot Acute Arthrodesis status Acute Cellulitis of toe of right foot Acute Lumbar radiculitis Acute Lumbar stenosis Acute Olecranon bursitis of left elbow Acute
[2016-05-21] MEDS: ENOXAPARIN 80 MG/0.8 ML SYR SC SCH (08:45)
[2016-05-21] MEDS: CYANO/VITAMIN B12 100 MCG TAB PO SCH (08:45)
[2016-05-21] MEDS: PREGABALIN 50 MG CAP PO SCH (08:45)
[2016-05-21] MEDS: SULFAMETHOX/TMP 800/160 MG 1 TAB PO SCH (08:46)
[2016-05-21] MEDS: FAMOTIDINE 20 MG TAB PO SCH (08:46)
--- NOTE | 2016-05-21 09:28 | HOSPPROG ---
Hospitalist Progress Note Assessment/Plan: 70-year-old female in the postoperative setting from a spinal fusion. # post op hypotension -resolved/bp stable -will have her monitor this at home #H/O PE resume anticoagulation -check an INR now/ has received 2 doses of coumadin -Lovenox bridge therapy -Coumadin -will need to cont bridge at time of dc -fu with PCP Antony Genao #H/O SLE on chronic prednisone -cont prednisone -relieved iv stress dose of steroids in setting of hypotension #H/O chronic left olecranon septic bursitis -cont Bactrim #plan : ok to dc per neurosurgery/ I will give her scripts for lovenox and coumadin/ needs f/u with PCP this week Subjective: Antionette is feeling well/ no complaints. Objective: Vital Signs Temp Pulse Resp BP Pulse Ox 36.8 C 94 16 133/98 H 90 L 05/21/16 07:58 05/21/16 07:58 05/21/16 07:58 05/21/16 07:58 05/21/16 07:58 Laboratory Results 05/17/16 05:30 05/17/16 05:30 05/20/16 05/21/16 05/22/16 05:59 05:59 05:59 Intake Total 750 300 Balance 750 300 PT 12.7 SEC (12.0-15.0) 05/16/16 06:35 INR 0.96 (0.83-1.16) 05/16/16 06:35 - Physical Exam Constitutional: no apparent distress, appears nourished, not in pain Eyes: PERRL Ears, Nose, Mouth, Throat: hearing normal Cardiovascular: regular rate and rhythym, systolic murmur (left sternal border) Respiratory: no respiratory distress Gastrointestinal: normoactive bowel sounds Skin: warm, normal color Musculoskeletal: no muscle tenderness Neurologic: sensation intact bilaterally Psychiatric: interacting appropriately ICD10 Worksheet Patient Problems: Problems Problem Status Onset Cellulitis of foot Active Abscess of toe of right foot Acute Arthrodesis status Acute Cellulitis of toe of right foot Acute Lumbar radiculitis Acute Lumbar stenosis Acute Olecranon bursitis of left elbow Acute
[2016-05-21 10:18] LABS: INR 1.02 (0.83-1.16); PROTIME(PATIENT) 13.3 SEC (12.0-15.0)
--- NOTE | 2016-05-21 11:35 | PDIAF ---
- Diagnosis Code Status: Full Code - Medication Management Discharge Medications: Medications to Continue on Transfer Alendronate Sodium [Fosamax 70 MG (*)] 70 mg PO TU@0700 04/16/14 [Last Taken 10/15] EPINEPHrine [Epipen 0.3 MG] 0.3 mg IM ONCE PRN 04/16/14 [Last Taken Unknown] Lisinopril [Zestril 20 mg (*)] 20 mg PO HS 04/16/14 [Last Taken 05/15/16] Multivitamins [Multivitamin (*)] 1 each PO DAILY@04/16/14 [Last Taken ] SUMAtriptan [Imitrex 50 MG (*)] 25 - 50 mg PO Q2H PRN 04/16/14 [Last Taken 05/02] clonazePAM [klonoPIN (*)] 1 mg PO DAILY06 04/16/14 [Last Taken 05/16/16 05:15] Efinaconazole [Jublia] 1 pernell TP 07/20/15 [Last Taken 05/15/16] Docusate Sodium [Colace 100 MG (*)] 100 mg PO HS PRN 03/19/16 [Last Taken ] Gabapentin [Neurontin 300 MG (*)] 300 mg PO TID@0500,1830,2330 03/19/16 [Last Taken 05/16/16 05:15] Herbals/Supplements -Info Only 1 ea PO DAILY 03/19/16 [Last Taken 05/09/16] Potassium Cl [Klor-Con 20 meq (*)] 20 meq PO DAILY@1230 03/19/16 [Last Taken ] Warfarin Sodium [Coumadin 4MG (*)] 4 mg PO DAILY@2330 03/19/16 [Last Taken 05/02] morphINE SR [MS Contin/Oramorph SR 30 mg (*)] 30 mg PO DAILY@0500,1230,2330 [Last Taken 05/16/16 05:15] predniSONE 2.5 mg PO DAILY@05 03/19/16 [Last Taken 05/16/16 05:15] Sulfamethox/Tmp 800/160 mg [Bactrim DS] 1 tab PO BID 05/08/16 [Last Taken 05:15] Acet/Caffeine/Buta Fioricet [Fioricet (*)] 1 each PO Q6 PRN 05/11/16 [Last Taken 05/14/16] Calcium Carb W/Vit D [Calcium Carb W/Vit D 500/200 (*)] 500 mg PO DAILY@12 05/11 [Last Taken 05/09/16] Cyanocobalamin [Vitamin B12 (*)] 100 mcg PO BID 05/11/16 [Last Taken Unknown] Magnesium Oxide [Magnesium Oxide 400 mg (*)] 400 mg PO DAILY@18 05/11/16 [Last Taken 05/09/16] Elverta-3 Fatty Acids/Fish Oil [Elverta 3 1,000 mg Softgel] 1 each PO DAILY@05/11 [Last Taken 05/09/16] Pregabalin [Lyrica 50mg (*)] 100 mg PO BID 05/11/16 [Last Taken 05/16/16 05:15] traZODone [traZODONE 50MG (*)] 50 mg PO HS 05/11/16 [Last Taken 05/15/16] Acetaminophen [Tylenol 325mg (*)] 325 - 650 mg PO Q4HRS PRN #0 tab 05/21/16 [ Last Taken Unknown] Famotidine [Pepcid 20 MG (*)] 20 mg PO BID #0 tab 05/21/16 [Last Taken Unknown] HYDROmorphone HCL [Dilaudid 2 mg (*)] 2 mg PO Q4-6PRN PRN #20 tab 05/21/16 [ Last Taken Unknown] Methocarbamol [Robaxin 750 mg (*)] 750 mg PO QID PRN #0 tab 05/21/16 [Last Taken Unknown] Polyethylene Glycol 3350 [Miralax 17 gm (*)] 17 gm PO DAILY PRN #0 pkt 05/21/16 [Last Taken Unknown] oxyCODONE IR [Oxycodone Ir (*)] 5 mg PO Q3HRS PRN #90 tab 05/21/16 [Last Taken Unknown] Half-Way Antibiotics: n/a Discharge Medications: Refer to the Discharge Home Medication list for PRN reason. - Orders Services needed: Home Care, Registered Nurse, Physical Therapy, Occupational Therapy Home Care Face to Face: I certify that this patient was under my care and that I had the required [id number] encounter meeting the encounter requirements on the discharge day. My findings support the fact that the patient is homebound as defined in CMS Chapter 7 Medicare Benefits Manual 30.1.1, The condition of the patient is such that there exists a normal inability to leave home and consequently, leaving home would require a considerable and taxing effort. Diet Recommendation: no restrictions on diet Diet Texture: Regular Texture Diet Felix Stockings Discontinue Date: Can dc when walking 100 yards three times a day Wound Care Instructions: wear your brace when out of bed. Monitor your incision for signs of infection ,drainage(pus), fever, chills. leave steri strips(they may fall off in shower this is fine)(. May shower keep short 5-7 minutes, pat dry with towel. Follow up with Dr. Armas in 2 weeks call [phone] to set up your appointment. No bending at the waist, twisting, or lifting more than 5-10 pounds. No NSAID's for 6 months Activity/Weight Bearing Restrictions: wear your brace when out of bed. Monitor your incision for signs of infection ,drainage(pus), fever, chills. leave steri strips(they may fall off in shower this is fine)(. May shower keep short 5-7 minutes, pat dry with towel. Follow up with Dr. Armas in 2 weeks call to set up your appointment. No bending at the waist, twisting, or lifting more than 5-10 pounds. No NSAID's for 6 months - Follow Up Care Current Providers and Referrals: Inna Armas MD [Medical Doctor] - Antony Genao MD [Primary Care Provider] -
[2016-05-21] MEDS: CALCIUM CARB W/VIT D 500 MG TAB PO SCH (12:35)
[2016-05-21] MEDS: POTASSIUM CL 20 MEQ TAB PO SCH (12:35)
== END 2016-05-21 13:50 | disposition home or self-care (01) | DRG 460 ==
LOC: F3N 05-16 05:56 → F2N 05-16 15:00 → F3N 05-17 11:34
PROVIDERS: ADMIT Neurological Surgery; ATTEND Neurological Surgery
PROC: 00NY0ZZ Release Lumbar Spinal Cord, Open Approach (ICD-10-PCS; principal; 2016-05-16 07:30)
PROC: 0SG30A1 (ICD-10-PCS; principal; 2016-05-16 07:30)
PROC: 0SP004Z Removal of Internal Fixation Device from Lumbar Vertebral Joint, Open Approach (ICD-10-PCS; principal; 2016-05-16 07:30)
PROC: 0SG10A1 (ICD-10-PCS; principal; 2016-05-16 07:30)
DX: M43.16 Spondylolisthesis, lumbar region (principal); M51.36 Other intervertebral disc degeneration, lumbar region; M43.17 Spondylolisthesis, lumbosacral region; M46.06 Spinal enthesopathy, lumbar region; M79.7 Fibromyalgia; M32.9 Systemic lupus erythematosus, unspecified; I10 Essential (primary) hypertension; R01.1 Cardiac murmur, unspecified; M70.22 Olecranon bursitis, left elbow; Z79.891 Long term (current) use of opiate analgesic; Z86.711 Personal history of pulmonary embolism; Z79.01 Long term (current) use of anticoagulants; Z89.421 Acquired absence of other right toe(s); Z86.14 Personal history of Methicillin resistant Staphylococcus aureus infection; Z79.52 Long term (current) use of systemic steroids
CPT/HCPCS: 97116-GP; 97161-GP; 97166-GO; 97530-GP; 97535-GO; C1713; G8978-GP-CI; G8978-GP-CJ; G8979-GP-CI; G8980-GP-CI; G8987-GO-CK; G8988-GO-CI; J0878; J1100; J1170; J1650; J2001; J2250; J2370; J2704; J2765; J3010

== ENCOUNTER → 2016-06-05 | Outpatient (CLI) | payer OTHER | LOC: FIMAGING 14:37 | PROVIDERS: ATTEND Physician Assistant | DX: Z09 Encounter for follow-up examination after completed treatment for conditions other than malignant neoplasm (principal); Z98.1 Arthrodesis status; M43.16 Spondylolisthesis, lumbar region ==

== ENCOUNTER → 2016-07-14 | Outpatient (CLI) | payer OTHER | LOC: FIMAGING 20:19 | PROVIDERS: ATTEND Physician Assistant | DX: Z09 Encounter for follow-up examination after completed treatment for conditions other than malignant neoplasm (principal); Z98.1 Arthrodesis status ==

== ENCOUNTER → 2016-10-15 | Outpatient (CLI) | payer OTHER | LOC: FIMAGING 14:13 | PROVIDERS: ATTEND Physician Assistant | DX: Z98.1 Arthrodesis status (principal); M43.16 Spondylolisthesis, lumbar region ==

== ENCOUNTER → 2016-11-18 | Outpatient (CLI) | payer OTHER | LOC: FIMAGING 13:26 | PROVIDERS: ATTEND Neurological Surgery | DX: M54.18 Radiculopathy, sacral and sacrococcygeal region (principal); Z98.1 Arthrodesis status ==

== ENCOUNTER → 2016-12-12 | Outpatient (CLI) | payer OTHER | LOC: FIMAGING 15:11 | PROVIDERS: ATTEND Physician Assistant | DX: Z09 Encounter for follow-up examination after completed treatment for conditions other than malignant neoplasm (principal); Z98.1 Arthrodesis status ==

== ENCOUNTER → 2016-12-13 | Outpatient (CLI) | payer OTHER | LOC: FIMAGING 15:20 | PROVIDERS: ATTEND Psychiatry & Neurology Neurology | DX: M48.02 Spinal stenosis, cervical region (principal); M54.12 Radiculopathy, cervical region; M50.30 Other cervical disc degeneration, unspecified cervical region ==

== ENCOUNTER → 2017-01-11 | Outpatient (CLI) | payer OTHER | LOC: BMCIMAGING 14:43 | PROVIDERS: ATTEND Internal Medicine | DX: Z12.31 Encounter for screening mammogram for malignant neoplasm of breast (principal) | CPT/HCPCS: G0202 ==

== ENCOUNTER → 2017-01-24 | Outpatient (CLI) | payer OTHER | LOC: BMCIMAGING 14:43 | PROVIDERS: ATTEND Emergency Medicine ==

== ENCOUNTER → 2017-02-15 | Outpatient (CLI) | payer OTHER | LOC: FIMAGING 15:54 | PROVIDERS: ATTEND Nurse Practitioner | DX: Z09 Encounter for follow-up examination after completed treatment for conditions other than malignant neoplasm (principal); Z98.1 Arthrodesis status; M43.16 Spondylolisthesis, lumbar region; M47.894 Other spondylosis, thoracic region ==

== ENCOUNTER 2017-05-17 12:03 | Observation (INO) | payer OTHER ==
--- NOTE | 2017-05-17 12:20 | CPEKG ---
Heart Rate: 86 RR Interval: 698 P-R Interval: 136 QRSD Interval: 112 QT Interval: 380 QTC Interval: 455 P [place]: 44 QRS [place]: -2 T Wave [place]: 50 EKG Severity - ABNORMAL ECG - EKG Impression: SINUS RHYTHM EKG Impression: INCOMPLETE RIGHT BUNDLE BRANCH BLOCK Electronically Signed By: Ludivina Thibodeaux 17-May-2017 16:25:42
--- NOTE | 2017-05-17 12:34 | EDPHY ---
H & P Stated Complaint: aortic valve surg/cpr 05/14 has had cp since Time Seen by Provider: 05/17/17 12:32 HPI/ROS: CHIEF COMPLAINT: Chest pain HISTORY OF PRESENT ILLNESS: This is a 71-year-old female with a history of aortic stenosis, PE postoperatively, lupus and fibromyalgia who underwent a TAVR procedure at [facility] on 05/14/2017. She presents today with mid substernal chest pain that has been worsening over the past week. The pain is pleuritic. One week ago she had an angiogram performed and at that time had an anaphylactic reaction to the IV contrast (visipaque). She recalls nausea and vomiting followed by syncope. CPR was performed. She was told that she likely aspirated, was hospitalized overnight, and discharged on clindamycin. She states that she has had chest pain since that time, but that it has been progressively worsening over the past week. She is on daily prednisone, 2.5 mg. She had a prednisone burst recently resumed her usual dose 2 days ago. She takes NSAIDs and opiates regularly. She takes Coumadin daily, alternating 3 mg with 4 mg every other day. However, she has been on and off with her Coumadin recently, due to surgery. She was without for the last couple of days but took a dose last night. REVIEW OF SYSTEMS: A ten point review of systems was performed and is negative with the exception of the items mentioned in the HPI. Past medical history: 1. Lupus 2. Fibromyalgia 3. Aortic stenosis 4. PE following surgery 5. Recurrent infections 6. Migraine headaches Past surgical history: 1. TAVR 2. 3 lumbar surgeries--L4-5, L5-S1 decompressive laminectomies followed by L3-4 laminectomies and lumbar fusion 3. Left elbow surgery/washouts for infection 4. 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 Right shoulder surgery Social history: She is . She does not use tobacco products or alcohol. General Appearance: Alert. Vital signs reviewed. Blood pressure 130/67 at triage. Eyes: Pupils equal and round, no conjunctival injection, no discharge. Anicteric. ENT, Mouth: Mucous membranes are moist, no oropharyngeal erythema or edema. Neck: No lymphadenopathy, supple. Respiratory: Lungs are clear to auscultation; no wheezes, rales, or rhonchi. Cardiovascular: Regular rate and rhythm; no murmur, rub, or gallop. Thorax: No bruising. Tender to mid sternal palpation, no crepitus. Gastrointestinal: Abdomen is soft and nontender, no masses or organomegaly, bowel sounds normal. Skin: Warm and dry, no rashes on exposed skin, normal color. Scattered bruises upper extremities. Back: Nontender to palpation over the thoracolumbar spine. Extremities: No lower extremity edema, no calf tenderness or swelling. Neurological: Alert and oriented. Moving all four extremities easily and equally. Psychiatric: Normal affect. - Personal History Current Tetanus/Diphtheria Vaccine: Unsure Tetanus Vaccine Date: probably <10 years - Medical/Surgical History Hx Asthma: No Hx Chronic Respiratory Disease: No Hx Diabetes: No Hx Cardiac Disease: Yes Hx Renal Disease: No Hx Cirrhosis: No Hx Alcoholism: No Hx HIV/AIDS: No Hx Splenectomy or Spleen Trauma: No Other PMH: LUPUS, HTN, fibromyalgia, migraines, elbow surgery, appy, parathyroidectomy, right shoulder surgery, back surgery, tosillectomy, feet sx/ aortic valve replacement - Social History Smoking Status: Never smoked Constitutional: Initial Vital Signs Temperature (C) 36.8 C 05/17/17 12:07 Heart Rate 91 05/17/17 12:07 Respiratory Rate 17 05/17/17 12:07 Blood Pressure 130/67 H 05/17/17 12:07 O2 Sat (%) 95 05/17/17 12:07 O2 Delivery Mode Nasal Cannula O2 (L/minute) 2 Allergies/Adverse Reactions: fentanyl [Fentanyl] Allergy (Intermediate, Verified 05/17/17 12:05) Hives cephalexin monohydrate [From Keflex] Allergy (Verified 05/17/17 12:05) Other-Enter Comments Iodine and Iodide Containing Produc Allergy (Verified 05/17/17 12:06) Penicillins Allergy (Verified 05/17/17 12:05) Other-Enter Comments BEE STINGS Allergy (Severe, Uncoded 05/25/15 19:10) Anaphylaxis Home Medications: Medication Instructions Recorded Alendronate Sodium [Fosamax 70 MG 70 mg PO WE@0700 04/16/14 (*)] EPINEPHrine [Epipen 0.3 MG] 0.3 mg IM ONCE PRN 04/16/14 Lisinopril [Zestril 20 mg (*)] 20 mg PO HS 04/16/14 Multivitamins [Multivitamin (*)] 1 each PO DAILY@05 04/16/14 SUMAtriptan [Imitrex 50 MG (*)] 25 - 50 mg PO Q2H PRN 04/16/14 clonazePAM [klonoPIN (*)] 1 mg PO DAILY06 04/16/14 Herbals/Supplements -Info Only 1 ea PO DAILY 03/19/16 Potassium Cl [Klor-Con 20 meq (*)] 20 meq PO DAILY@1230 03/19/16 Warfarin Sodium [Coumadin 4MG (*)] 4 mg PO EVERY OTHER DAY 03/19/16 morphINE SR [MS Contin/Oramorph SR 30 mg PO DAILY@0500,1230,2330 03/19/16 30 mg (*)] predniSONE 2.5 mg PO DAILY@03/19/16 Sulfamethox/Tmp 800/160 mg 1 tab PO DAILY 05/08/16 [Bactrim DS] Acet/Caffeine/Buta Fioricet 1 each PO Q6 PRN 05/11/16 [Fioricet (*)] [place]-3 Fatty Acids/Fish Oil 1 each PO DAILY@18 05/11/16 [[place] 3 1,000 mg Softgel] Acetaminophen [Tylenol 325mg (*)] 325 - 650 mg PO Q4HRS PRN #0 tab 05/21/16 Cyclobenzaprine [Flexeril 10 MG 10 mg PO HS PRN 05/17/17 (*)] Magnesium Oxide 250 mg PO DAILY 05/17/17 Pregabalin [Lyrica 150mg (*)] 150 mg PO BID@06,15 05/17/17 Sertraline HCl [Zoloft 25mg (*)] 25 mg PO DAILY 05/17/17 Warfarin Sodium [Coumadin 3MG (*)] 3 mg PO EVERY OTHER DAY 05/17/17 oxyCODONE/APAP 5/325 [Percocet 1 tab PO Q6H 05/17/17 5/325 (*)] Medical Decision Making - Diagnostics EKG Interpretation: 12 lead EKG is interpreted in Trace master View by emergency department physician. Shows an incomplete right bundle branch block. Sinus rhythm with a rate of 86. This EKG is different compared to an EKG EKG performed in July of 2015, the last EKG that I have for comparison. In 2016 she did not have a partial right bundle branch block. Imaging: Discussed imaging studies w/ call or contact centre team leader Radiologist, I viewed and interpreted images myself ED Course/Re-evaluation: Chest x-ray: negative for acute process. I reviewed both the x-ray and the radiology report. EKG reviewed. Shows an incomplete right bundle branch block. Previous EKG that I have for comparison is from July of 2015 and does not show this abnormality. I spoke with Dr. Tien Cummins, her haulage engine operator, and he tells me that her past 2 EKGs that are available to him do show an incomplete right bundle branch block. Her troponin is elevated in the indeterminate range. I think this is likely secondary to her recent cardiac catheterization with CPR and her TAVR procedure. Cardiac catheterization was negative for coronary artery disease and I do not think that today's chest pain is due to cardiac ischemia. My main concern in terms of her chest pain is for pulmonary embolus. She has been relatively immobile recently and is not currently adequately anticoagulated. Her INR is 1.07. She did take a dose of Coumadin last night. Dr. Cummins believes that she was given Plavix and aspirin during the immediate postoperative time. I reviewed her discharge instructions and she has been advised to resume her Coumadin, which she did do last night. IV access has been somewhat difficult during her emergency department stay. Blood samples have been rejected by the laboratory. CBC is pending at the time of this dictation. She currently has an IV in the right hand. She Will Be admitted to the hospitalist service with Dr. Reece as the accepting physician. The plan is for her to undergo V/Q scanning to assess for PE. In the meantime, she will be anticoagulated with Lovenox. Her chest pain has improved with the administration of Dilaudid IV. Will continue with Dilaudid for pain control as needed. Differential Diagnosis: Chest pain including but not limited to myocardial ischemia, contusion, rib or sternal fracture secondary to CPR, pulmonary embolus, chest wall pain, pleural inflammation and pulmonary infectious causes. - Data Points Laboratory Results: Laboratory Results 05/17/17 14:42 05/17/17 14:42 Medications Given: Clonazepam (Klonopin) 1 mg PO DAILY06 COUNT INCLUDES THE [facility] Stop: 11/14/17 05:59 Last Admin: 05/18/17 05:58 Dose: 1 mg Enoxaparin Sodium (Lovenox) 80 mg SC BID COUNT INCLUDES THE [facility] Stop: 11/14/17 03:59 Last Admin: 05/18/17 07:13 Dose: Not Given Hydromorphone HCl (Dilaudid) 0.2 - 1 mg IVP Q2 PRN PRN Reason: Pain, Severe Unable to Take PO Stop: 05/27/17 16:21 Last Admin: 05/17/17 18:34 Dose: 1 mg Hydromorphone HCl (Dilaudid) 2 - 4 mg PO Q4HRS PRN PRN Reason: Pain, Severe Able to Take PO Stop: 05/27/17 16:21 Last Admin: 05/18/17 04:38 Dose: 2 mg Lisinopril (Zestril) 20 mg PO HS COUNT INCLUDES THE [facility] Stop: 11/13/17 20:59 Last Admin: 05/17/17 21:25 Dose: 20 mg Miscellaneous Information (Patch Removal) 1 ea TD DAILY21 COUNT INCLUDES THE [facility] Stop: 11/13/17 20:59 Last Admin: 05/17/17 22:00 Dose: Not Given Miscellaneous Medication (Icy Hot Lidocaine/Menthol 4%/1% Patch) 1 patch TD DAILY PADMINI Stop: 11/13/17 16:59 Last Admin: 05/17/17 21:35 Dose: 1 patch Morphine Sulfate (Ms Contin/Oramorph Sr) 30 mg PO DAILY@0500,1230,2330 COUNT INCLUDES THE [facility] Stop: 05/27/17 23:29 Last Admin: 05/18/17 04:38 Dose: 30 mg Multivitamins (Tab-A-Dhiraj) 1 each PO DAILY@05 COUNT INCLUDES THE [facility] Stop: 11/14/17 04:59 Last Admin: 05/18/17 04:38 Dose: 1 each Oxycodone/Acetaminophen (Percocet 5/325) 1 - 2 tab PO Q6H PRN PRN Reason: Pain, Severe Stop: 05/27/17 23:07 Last Admin: 05/18/17 05:58 Dose: 2 tab Prednisone (Prednisone) 2.5 mg PO DAILY@05 COUNT INCLUDES THE [facility] Stop: 11/14/17 04:59 Last Admin: 05/18/17 04:38 Dose: 2.5 mg Pregabalin (Lyrica) 150 mg PO BID@0600,1500 COUNT INCLUDES THE [facility] Stop: 11/13/17 20:44 Last Admin: 05/18/17 05:58 Dose: 150 mg Senna/Docusate Sodium (Senokot-S) 1 - 2 tab PO BID PADMINI PRN Reason: Protocol Stop: 11/13/17 20:59 Last Admin: 05/17/17 21:38 Dose: 1 tab Trimethoprim/Sulfamethoxazole (Bactrim Ds) 1 ea PO BID PADMINI PRN Reason: Protocol Stop: 06/16/17 20:59 Last Admin: 05/17/17 21:25 Dose: 1 ea Discontinued Medications Enoxaparin Sodium (Lovenox) 80 mg SC EDNOW ONE Stop: 05/17/17 16:15 Last Admin: 05/17/17 16:46 Dose: 80 mg Hydromorphone HCl (Dilaudid) 1 mg IVP EDNOW ONE Stop: 05/17/17 13:35 Last Admin: 05/17/17 15:16 Dose: 1 mg Sodium Chloride (Ns) 1,000 mls @ 0 mls/hr IV ONCE ONE; Wide Open PRN Reason: Protocol Stop: 05/17/17 16:44 Last Admin: 05/17/17 21:35 Dose: 1,000 mls Warfarin Sodium (Coumadin) 5 mg PO ONCE ONE Stop: 05/17/17 16:27 Last Admin: 05/17/17 21:25 Dose: 5 mg Warfarin Sodium (Coumadin) 5 mg PO ONCE ONE Stop: 05/17/17 21:01 Last Admin: 05/17/17 21:48 Dose: Not Given Departure - Departure Disposition: [facility] Acute Clinical Impression: Chest pain Qualifiers: Chest pain type: chest pain on breathing Qualified Code(s): R07.1 - Chest pain on breathing Condition: Good
[2017-05-17] MEDS ORDERED: HYDROmorphONE/DILAUDID 1 MG/ML INJ IVP ONE (13:34)
[2017-05-17 15:07] LABS: INR 1.07 (0.83-1.16); PROTIME(PATIENT) 14.1 SEC (12.0-15.0)
[2017-05-17] MEDS ORDERED: ENOXAPARIN 80 MG/0.8 ML SYR SC ONE (16:14)
[2017-05-17] MEDS ORDERED: ONDANSETRON 4 MG/2 ML VIAL IVP PRN (16:22)
[2017-05-17] MEDS ORDERED: ONDANSETRON DISINTEGRATING 4 MG TAB PO PRN (16:22)
[2017-05-17] MEDS ORDERED: HYDROmorphONE/DILAUDID 1 MG/ML INJ IVP PRN (16:22)
[2017-05-17] MEDS ORDERED: ACETAMINOPHEN 325 MG TAB PO PRN (16:22)
[2017-05-17] MEDS ORDERED: WARFARIN SODIUM 5 MG TAB PO ONE ×2 (16:26→21:00)
[2017-05-17] MEDS ORDERED: NS 1,000 ML IV ONE (16:43)
--- NOTE | 2017-05-17 16:54 | PDGENHP ---
History and Physical - Chief Complaint Acute chest pain - History of Present Illness Primary care provider: Dr. Antony Genao Primary binder technician: Dr. Paul Emanuel Primary delinquency prevention social worker: Dr. Tien Cummins Primary infectious Disease: Dr. Richard Rosen HPI: 71-year-old female presenting with acute chest pain characterized as a sharp burning pain located in the mid substernal area with onset of symptoms after the patient received CPR for anaphylaxis related to a cardiac catheterization approximately 1 week ago. Duration has been persistent thereafter, the symptoms are exacerbated by positional changes and sitting upright, as well as deep inspiration, and have been only mildly alleviated with Percocet, Tylenol. Prior to the patient's cardiac catheterization, she was not experiencing any chest pain. She has had some associated anorexia and poor oral intake in the setting of her pain. She reports that she feels dehydrated. She has otherwise been taking all of her home medications post TAVR on 05/14. She has recently completed a course of clindamycin which was prescribed for possible aspiration during her anaphylaxis. Clindamycin resulted in diarrhea which is resolving. She has not been having any other GI effects. History Information - Allergies/Home Medication List Allergies/Adverse Reactions: fentanyl [Fentanyl] Allergy (Intermediate, Verified 05/17/17 12:05) Hives cephalexin monohydrate [From Keflex] Allergy (Verified 05/17/17 12:05) Other-Enter Comments Iodine and Iodide Containing Produc Allergy (Verified 05/17/17 12:06) Penicillins Allergy (Verified 05/17/17 12:05) Other-Enter Comments BEE STINGS Allergy (Severe, Uncoded 05/25/15 19:10) Anaphylaxis Home Medications: Alendronate Sodium [Fosamax 70 MG (*)] 70 mg PO TU@0700 04/16/14 [Last Taken 10/15] EPINEPHrine [Epipen 0.3 MG] 0.3 mg IM ONCE PRN 04/16/14 [Last Taken Unknown] Lisinopril [Zestril 20 mg (*)] 20 mg PO HS 04/16/14 [Last Taken 05/15/16] Multivitamins [Multivitamin (*)] 1 each PO DAILY@05 04/16/14 [Last Taken ] SUMAtriptan [Imitrex 50 MG (*)] 25 - 50 mg PO Q2H PRN 04/16/14 [Last Taken 05/02] clonazePAM [klonoPIN (*)] 1 mg PO DAILY06 04/16/14 [Last Taken 05/16/16 05:15] Efinaconazole [Jublia] 1 pernell TP HS 07/20/15 [Last Taken 05/15/16] Docusate Sodium [Colace 100 MG (*)] 100 mg PO HS PRN 03/19/16 [Last Taken ] Gabapentin [Neurontin 300 MG (*)] 300 mg PO TID@0500,1830,2330 03/19/16 [Last Taken 05/16/16 05:15] Herbals/Supplements -Info Only 1 ea PO DAILY 03/19/16 [Last Taken 05/09/16] Potassium Cl [Klor-Con 20 meq (*)] 20 meq PO DAILY@1230 03/19/16 [Last Taken ] Warfarin Sodium [Coumadin 4MG (*)] 4 mg PO DAILY@2330 03/19/16 [Last Taken 05/02] morphINE SR [MS Contin/Oramorph SR 30 mg (*)] 30 mg PO DAILY@0500,1230,2330 [Last Taken 05/16/16 05:15] predniSONE 2.5 mg PO DAILY@05 03/19/16 [Last Taken 05/16/16 05:15] Sulfamethox/Tmp 800/160 mg [Bactrim DS] 1 tab PO BID 05/08/16 [Last Taken 05:15] Acet/Caffeine/Buta Fioricet [Fioricet (*)] 1 each PO Q6 PRN 05/11/16 [Last Taken 05/14/16] Calcium Carb W/Vit D [Calcium Carb W/Vit D 500/200 (*)] 500 mg PO DAILY@12 05/11 [Last Taken 05/09/16] Cyanocobalamin [Vitamin B12 (*)] 100 mcg PO BID 05/11/16 [Last Taken Unknown] Magnesium Oxide [Magnesium Oxide 400 mg (*)] 400 mg PO DAILY@18 05/11/16 [Last Taken 05/09/16] [place]-3 Fatty Acids/Fish Oil [[place] 3 1,000 mg Softgel] 1 each PO DAILY@ 05/11 [Last Taken 05/09/16] Pregabalin [Lyrica 50mg (*)] 100 mg PO BID 05/11/16 [Last Taken 05/16/16 05:15] traZODone [traZODONE 50MG (*)] 50 mg PO HS 05/11/16 [Last Taken 05/15/16] I have personally reviewed and updated: family history, medical history, social history, surgical history - Past Medical History Additional medical history: Lupus on chronic prednisone. Fibromyalgia with chronic pain and continuous opiate dependency. Influenza approximately 1 month ago. Aortic stenosis requiring TAVR at [facility] on 2017. Provoked pulmonary embolism in 2013. Chronic back pain with recurrent back surgeries. History of osteo myelitis - Surgical History Additional surgical history: Numerous lumbar spine surgeries. Left elbow surgery. Toe surgery with amputation secondary to osteomyelitis. Right shoulder surgery. Appendectomy. Parathyroidectomy. TAVR [facility] . Cardiac catheterization reportedly normal without any obstructive coronary disease, resulted in anaphylaxis - Family History Additional family history: No recent sick family contacts - Social History Smoking Status: Never smoked Alcohol Use: None Drug Use: None Additional social history: Reports that she is independent in her ADLs Review of Systems Review of Systems: ROS: 10pt was reviewed & negative except for what was stated in HPI & below Constitutional: Reports: other (Anorexia) Cardiac: Reports: chest pain Gastrointestinal: Reports: diarrhea Physical Exam Physical Exam: Temp Pulse Resp BP Pulse Ox 36.8 C 91 17 130/67 H 95 05/17/17 12:07 05/17/17 12:07 05/17/17 12:07 05/17/17 12:07 05/17/17 12:07 Constitutional: no apparent distress, uncomfortable, No not in pain (Moderate pain in chest) Eyes: PERRL, anicteric sclera, EOMI Ears, Nose, Mouth, Throat: moist mucous membranes, hearing normal, ears appear normal, no oral mucosal ulcers Cardiovascular: systolic murmur (1/6 systolic at the right sternal border), other (Closing snap at right sternal border), No irregularly irregular, No tachycardia, No edema Respiratory: no respiratory distress, no rales or rhonchi, clear to auscultation , reduced air movement (Poor inspiratory effort secondary to chest discomfort) Gastrointestinal: normoactive bowel sounds, soft, non-tender abdomen, no palpable masses, distension (Mildly obese) Genitourinary: no bladder fullness, no bladder tenderness Skin: other (Several abrasions over the midsternal area without any confluent erythema or laceration) Musculoskeletal: other (Tenderness to palpation over the sternum, intercostal muscles adjacent to the sternum, full range of motion of the bilateral shoulders without pain elicited) Neurologic: AAOx3, sensation intact bilaterally, No weakness Psychiatric: interacting appropriately, not anxious, not encephalopathic, thought process linear Lab Data & Imaging Review 05/17/17 14:42 05/17/17 14:42 WBC REJ 05/17/17 14:42 RBC REJ 05/17/17 14:42 Hgb REJ 05/17/17 14:42 Hct REJ 05/17/17 14:42 MCV REJ 05/17/17 14:42 MCH REJ 05/17/17 14:42 MCHC REJ 05/17/17 14:42 RDW REJ 05/17/17 14:42 Plt Count REJ 05/17/17 14:42 MPV REJ 05/17/17 14:42 Neut % (Auto) REJ 05/17/17 14:42 Lymph % (Auto) REJ 05/17/17 14:42 [place] % (Auto) REJ 05/17/17 14:42 Eos % (Auto) REJ 05/17/17 14:42 Baso % (Auto) REJ 05/17/17 14:42 Nucleat RBC Rel Count REJ 05/17/17 14:42 Absolute Neuts (auto) REJ 05/17/17 14:42 Absolute Lymphs (auto) REJ 05/17/17 14:42 Absolute Monos (auto) REJ 05/17/17 14:42 Absolute Eos (auto) REJ 05/17/17 14:42 Absolute Basos (auto) REJ 05/17/17 14:42 Absolute Nucleated RBC REJ 05/17/17 14:42 Immature Gran % REJ 05/17/17 14:42 Immature Gran # REJ 05/17/17 14:42 PT 14.1 SEC (12.0-15.0) 05/17/17 14:50 INR 1.07 (0.83-1.16) 05/17/17 14:50 Sodium 142 mEq/L (135-145) 05/17/17 14:42 Potassium 4.6 mEq/L (3.5-5.2) 05/17/17 14:42 Chloride 107 mEq/L (97-110) 05/17/17 14:42 Carbon Dioxide 22 mEq/l (22-31) 05/17/17 14:42 Anion Gap 13 mEq/L (8-16) 05/17/17 14:42 BUN 17 mg/dL (7-23) 05/17/17 14:42 Creatinine 0.7 mg/dL (0.6-1.0) 05/17/17 14:42 Estimated GFR > 60 05/17/17 14:42 Glucose 128 mg/dL (70-100) H 05/17/17 14:42 Calcium 8.9 mg/dL (8.5-10.4) 05/17/17 14:42 Troponin I 0.083 ng/mL (0.000-0.034) H 05/17/17 14:42 Visualized and Interpreted Chest x-ray results: Yes Chest X-Ray results: other (Right hilar scarring, no change from April of 2017 , no focal infiltrates) Visualized and Interpreted EKG results: Yes EKG Interpretation: Positive for: other (Incomplete right bundle branch block, sinus mechanism) Assessment & Plan Assessment: 71-year-old female presents with acute chest pain in the setting of abnormal troponin level, recent CPR Plan: 1. Chest pain. Acute, new problem this provider, further workup indicated. Most likely secondary to intercostal and sternal injury/abrasion in the setting of recent CPR, as the patient's pain is clearly reproducible, it is pleuritic in nature, and is highly positional -that being said, the patient does have marginally elevated troponin level which may be secondary to downtrending troponin level following CPR and TAVR, but we shall trend the troponin level to ensure -patient is also high risk of recurrent pulmonary embolism in the setting of subtherapeutic INR following her TAVR procedure -discussed with Dr. Ludivina Thibodeaux, we agree that the patient should empirically receive Lovenox bridging therapy, continue on Coumadin, monitor daily on INR, and also check V/Q scan to confirm whether the pain is from pulmonary embolism versus post CPR -discussed patient's presentation with Dr. Harjinder Hartman, cardiology will consult tomorrow to continue the discussion regarding systemic anticoagulation following this specific cardiac procedure -supportive care with Lidoderm patch, ice, heat, as needed Dilaudid 2. Chronic pain with continuous opiate dependency. Reviewed outside records including 05/16/[address] Lm Luther, confirm that the patient was taking MS Contin at that time, she reports she is taking 3 times daily at this time, will continue once reconciled -placed on bowel regimen 3. Lupus with chronic steroid use. Continue prednisone 2.5 mg daily once reconciled 4. Aortic stenosis. Status post recent TAVR at [facility] -will order outside records including discharge summary from [facility], to determine the exact medication regimen the patient was discharged on as well as any additional useful information such as the findings of her cardiac catheterization prior to her anaphylaxis, which the patient reports was a"clean cath" Diet. Regular Prophylaxis. High risk patient, currently on therapeutic Lovenox Code. Full per patient, her is MD SINGER Disposition. Anticipated discharge 05/18, pending further workup and stabilization of condition outlined above.
[2017-05-17] MEDS ORDERED: BISACODYL 10 MG SUPP PR PRN (17:01)
[2017-05-17] MEDS ORDERED: POLYETHYLENE GLYCOL 3350 17 GM PKT PO PRN (17:01)
[2017-05-17] MEDS ORDERED: MAGNESIUM HYDROXIDE 30 ML UDCUP PO PRN (17:01)
[2017-05-17] MEDS ORDERED: LACTULOSE 20 GM/30 ML UDCUP PO PRN (17:01)
[2017-05-17] MEDS ORDERED: SUMAtriptan 50 MG TAB PO PRN (18:41)
[2017-05-17] MEDS ORDERED: CYCLOBENZAPRINE 10 MG TAB PO PRN (18:41)
[2017-05-17] MEDS ORDERED: ACET/CAFFEINE/BUTA FIORICET 1 EACH TAB PO PRN (18:41)
[2017-05-17] MEDS: HYDROmorphONE/DILAUDID 2 MG TAB PO PRN ×2 (19:43→23:39)
[2017-05-17] MEDS ORDERED: PREGABALIN 150 MG CAP PO SCH (20:15)
[2017-05-17 20:53] LABS: PLATELET COUNT 247 10^3/uL (150-400)
[2017-05-17] MEDS ORDERED: PATCH REMOVAL 1 EA PATCH TD SCH (21:00)
[2017-05-17] MEDS ORDERED: LISINOPRIL 20 MG TAB PO SCH (21:00)
[2017-05-17] MEDS: PREGABALIN 75 MG CAP PO SCH (21:24)
[2017-05-17] MEDS: SULFAMETHOX/TMP 800/160 MG 1 TAB PO SCH (21:25)
[2017-05-17 21:31] LABS: CREATINE KINASE 33 IU/L (0-156)
[2017-05-17] MEDS: LIDOCAINE 4%/MENTHOL 1% PATCH TD SCH (21:35)
[2017-05-17] MEDS: SENNOSIDES/DOCUSATE SODIUM TAB PO SCH (21:38)
[2017-05-17] MEDS: morphINE SR 30 MG TAB PO SCH (21:39)
[2017-05-17] MEDS: OXYCODONE/APAP 5/325 TAB PO PRN (23:33)
[2017-05-18 04:06] VITALS: TEMP 98.1
[2017-05-18] MEDS: morphINE SR 30 MG TAB PO SCH ×2 (04:38→12:22)
[2017-05-18] MEDS: HYDROmorphONE/DILAUDID 2 MG TAB PO PRN ×3 (04:38→14:46)
[2017-05-18 04:43] LABS: PLATELET COUNT 260 10^3/uL (150-400)
[2017-05-18 04:56] LABS: INR 1.07 (0.83-1.16); PROTIME(PATIENT) 14.1 SEC (12.0-15.0)
[2017-05-18] MEDS ORDERED: MULTIVITAMINS 1 EACH TAB PO SCH (05:00)
[2017-05-18] MEDS ORDERED: predniSONE 5 MG TAB PO SCH (05:00)
[2017-05-18] MEDS: OXYCODONE/APAP 5/325 TAB PO PRN ×2 (05:58→13:53)
[2017-05-18] MEDS: PREGABALIN 75 MG CAP PO SCH ×2 (05:58→14:46)
[2017-05-18] MEDS ORDERED: clonazePAM 1 MG TAB PO SCH (06:00)
[2017-05-18] MEDS: ENOXAPARIN 80 MG/0.8 ML SYR SC SCH ×2 (07:13→08:48)
[2017-05-18] MEDS: SENNOSIDES/DOCUSATE SODIUM TAB PO SCH (08:46)
[2017-05-18] MEDS: SULFAMETHOX/TMP 800/160 MG 1 TAB PO SCH (08:46)
[2017-05-18] MEDS: LIDOCAINE 4%/MENTHOL 1% PATCH TD SCH (08:47)
[2017-05-18 08:49] VITALS: RESP 18
--- NOTE | 2017-05-18 08:49 | SOAPPROG ---
SOAP Progress Note Assessment/Plan: Assessment: Cardiology consultation performed and dictated. 71 y/o woman with chronic pain in body, SLE, fibromyalgia and severe s/p TAVR 05/14/17 and MCR. Last week she had a diagnostic cardiac angiogram and had anaphylaxis to IV contrast requiring brief CPR. She is admitted with bilateral pleuritc CP. V/Q scan low probability for PE. Clinically I think her CP is musculoskeletal from her recent CPR. No signs of unstable angina or CHF or TAVR dysfunction. REC: 1)no change in current meds. 2)continue coumadin and would do ASA 81mg PO qam. Do not think she needs Plavix. 3)echo this AM to make sure normal LVEF, normal TAVR function and no pericardial effusion. 4)if echo okay, could be discharged home this afternoon or Saturday AM with pain meds. 5)continue Lisinopril for BP control. Thanks. Will see tomorrow is still here or will arrange f/u Dr. Reggie Cummins her clinic sql programmer analyst if she goes home this afternoon. 05/18/17 08:44 Objective: Vital Signs Temp Pulse Resp BP Pulse Ox 36.7 C 79 16 121/66 H 93 05/18/17 04:00 05/18/17 04:00 05/18/17 04:00 05/18/17 04:00 05/18/17 04:00 Laboratory Results 05/18/17 03:52 05/18/17 03:52 05/17/17 05/18/17 05/19/17 05:59 05:59 05:59 Intake Total 1400 Output Total 625 Balance 775 PT 14.1 SEC (12.0-15.0) 05/18/17 03:52 INR 1.07 (0.83-1.16) 05/18/17 03:52 ICD10 Worksheet Patient Problems: Problems Problem Status Onset Chest pain Acute Cellulitis of foot Active Abscess of toe of right foot Acute Arthrodesis status Acute Cellulitis of toe of right foot Acute Lumbar radiculitis Acute Lumbar stenosis Acute Olecranon bursitis of left elbow Acute
[2017-05-18] MEDS ORDERED: Herbals/Supplements -Info Only PO SCH (09:00)
[2017-05-18] MEDS ORDERED: OMEGA-3 FATTY ACIDS 1,000 MG CAP PO SCH (09:00)
[2017-05-18] MEDS ORDERED: SERTRALINE HCL 25 MG TAB PO SCH (09:00)
[2017-05-18] MEDS ORDERED: MAGNESIUM OXIDE 250 MG PO SCH (09:00)
[2017-05-18] MEDS ORDERED: MAGNESIUM OXIDE 400 MG TAB PO SCH (09:00)
--- NOTE | 2017-05-18 09:21 | GCON ---
[f rep st] CONSULTATION DATE OF CONSULTATION: 05/18/2017 REASON FOR CONSULTATION: Evaluate woman with bilateral pleuritic chest pain status post recent TAVR and CPR. HISTORY OF PRESENT ILLNESS: I was asked by Dr. Harjinder Reece to consult for the above reasons. The pa gildardo is a 71-year-old woman with chronic body pain on p.o. opioids for lupus and fibromyalgia. She also has a remote history of pulmonary embolus. She was found to have severe aortic stenosis and und erwent a TAVR at [facility] last week. Of note, she had a coronary angiogram a we ek ago and had an anaphylactic reaction to the IV contrast requiring brief CPR. Reportedly, the mauricio nary arteries were normal. She underwent a Molina Lori TAVR on 05/14/2017. She was discharged ho ne the next day. An echo post TAVR demonstrated an LVEF of 63% with mild left ventricular hypertroph y and normal TAVR function with trivial aortic insufficiency, chronic moderate mitral regurgitation, mild tricuspid insufficiency and estimated pulmonary artery systolic pressure of 27 mmHg with no obvi ous significant pericardial effusion. She had been home for 2 days with her pleuritic chest pain, no t getting any better. She came to the emergency room last night for evaluation. Of note, a V/Q scan last night with low probability for PE. Today, she is still quite tender sitting, trying to have br eakfast with pleuritic chest pain. Moving around to lie back in bed causes lots of discomfort across her chest wall. She reports no shortness of breath, hemoptysis or purulent sputum production. She has no syncope or palpitations. PAST MEDICAL HISTORY: Lupus, fibromyalgia, previous pulmonary embolus and previous severe aortic carri nosis. PAST SURGICAL HISTORY: Recent TAVR. CURRENT MEDICATIONS: Lovenox 80 mg subcu twice daily, prednisone 2.5 mg per day, KCl 20 mEq per day, Coumadin, lisinopril 20 mg per day, Bactrim. Rest of medications are noncardiac. ALLERGIES: Keflex, fentanyl, penicillin and IV contrast, which causes anaphylaxis. SOCIAL HISTORY: The patient denies tobacco or excessive alcohol intake. FAMILY HISTORY: Unremarkable for premature coronary artery disease. REVIEW OF SYSTEMS: The patient reports no recent bleeding such as hematemesis, melena, or bright red blood per rectum. Rest of 10-point review of systems is negative. PHYSICAL EXAM: VITAL SIGNS: Afebrile, pulse 79, blood pressure 121/66, respirations 24, weight 79.7 kg. IN GENERAL: A normal-appearing woman in no acute distress with mild chest pain across her chest wall. EYES: Pupils equal, reactive to light. ENT: Oral mucosa with no cyanosis. NECK: Jugular venous pressure to 7 cm. Carotid pulses 2+ bilaterally with no obvious bruits. LUNGS: Poor inspiratory eff ort. No obvious wheezes, rales, or rhonchi heard. HEART: Normal PMI. Regular rate and rhythm with no obvious murmurs or S3 or cardiac rub. ABDOMEN: Soft and nontender. No guarding or rebound. EXTR EMITIES: 2+ peripheral pulses including femoral and pedal pulses. No edema noted. MUSCULOSKELETAL: N o scoliosis. SKIN: No bleeding or cyanosis. NECK: No nuchal rigidity. EKG normal sinus rhythm with incomplete right bundle branch block. No acute ST elevation. LABS: White count 13.7, hematocrit 35, platelets 260,000. INR 1.07. Sodium 140, potassium 4.3, chl oride 102, bicarb 30, BUN 16, creatinine 0.7. Troponin 0.08. IMPRESSION: A 71-year-old woman with chronic body pain from fibromyalgia and lupus, status post rece nt transcatheter aortic valve replacement and CPR for anaphylaxis during coronary angiogram. Clinica lly I suspect her chest pain is more musculoskeletal from her CPR. I do not think she is having unst able angina, heart failure or transcatheter aortic valve replacement dysfunction. RECOMMENDATIONS: 1. Would get an echocardiogram today to re-evaluate LV function, transcatheter aortic valve replacem ent function and make sure she has no new pericardial effusion. 2. Would continue on her current cardiac medicines including lisinopril, potassium, and Coumadin. 3. Would add aspirin 81 mg per day. 4. There has been a question whether she should be on Plavix also. I do not think she needs to be o n this. 5. If the echo is unremarkable and her pain is controlled, I think she could be discharged home this afternoon or tomorrow with followup with Dr. Reggie Cummins, her clinic framing consultant. /[id number]/MODL
[2017-05-18 11:10] VITALS: BP 116/66; PULSE 82; O2SAT 94
--- NOTE | 2017-05-18 11:42 | ECHO ---
[email or web address] [address] [address] Main: [phone] Fax: Transthoracic Echocardiogram Name: CRISTOBAL SANDHU MR#: [id number] Study Date: 05/18/2017 Study Time: 09:25 AM Date of : 1945 Age: 71 year(s) Height: 162.6 cm (64 in.) Weight: 79.38 kg (175 lb.) BSA: 1.85 m2 Gender: Female Examination: Limited Echo Indication: S/P TAVR and CPR, evaluate LVEF, TAVR function and pericardial effusion Image Quality: Adequate Contrast: Requested by: Prakash Rodgers BP: 136 mmHg/85 mmHg Heart Rate: Rhythm: Normal sinus rhythm Indication: S/P TAVR and CPR, evaluate LVEF, TAVR function and pericardial effusion Procedure Staff Charge Nurse: Danielle Wills [facility] Reading Physician: Prakash Rodgers Requesting Provider: Conclusions: 1)Normal LV size and systolic function with a LVEF of 65% and normal wall motions. 2)Mild concentric LVH noted. 3)Mild left atrial enlargement noted. 4)Normal functioning TAVR with no AI noted. 5)Mild MR without MV prolapse. 6)No pericardial effusion noted. Measurements: Chambers Valvular Assessment AV/MV Valvular Assessment TV/PV Normal Normal Normal Name Value Range Name Value Range Name Value Range Ao Erica (MM): 2.6 cm (2.2 cm-3.7 AV Vmax: 2.75 m/s (1 m/s-1.7 cm) m/s) IVSd (2D): 1.2 cm (0.6 cm-1.1 AV maxP mmHg ( - ) cm) AV meanP mmHg ( - ) LVDd (2D): 3.8 cm (3.9 cm-5.3 cm) LVDs (2D): 2.5 cm (2.1 cm-4 cm) LVPWd (2D): 0.9 cm ( - ) LVEF (BP): 65 % (>=55 %) Continued Measurements: Additional Vessels Name Value Ao Ascendin.9 cm Patient: CRISTOBAL SANDHU Study Date: 05/18/2017 Page 1 of 2 09:25 AM Findings: Left Ventricle: Normal size left ventricle. Mild concentric LV hypertrophy. Normal global systolic LV function. EF is 65 %. No regional wall motion abnormality. Aortic Valve: S/P TAVR. Leaflets are thin and mobile. No pericardial leak or AI. Mean gradient across the valve 15mmHg.. Pericardium: No pericardial effusion. (No Signature Object) Patient: CRISTOBAL SANDHU Study Date: 05/18/2017 Page 2 of 2 09:25 AM [id number]
[2017-05-18] MEDS ORDERED: POTASSIUM CL 20 MEQ TAB PO SCH (12:30)
[2017-05-18] MEDS ORDERED: WARFARIN SODIUM 4 MG TAB PO SCH (16:00)
--- NOTE | 2017-05-18 16:46 | ASDISCHSUM ---
Discharge Information Plan Status:Home with No Needs Medically Cleared to Leave:05/17/2017 Discharge Date:05/17/2017 CM D/C Disposition:Home, Routine, Self-Care ADT D/C Disposition:Home, Routine, Self-Care Projected Discharge Date:05/17/2017 Transportation at D/C:Family Discharge Delay Reason: Follow-Up Date:05/17/2017 Discharge Slot: Final Diagnosis: Placement Information Patient Contact Information Contact Name:MYKEL Relationship: Address:[address] City:[place] Alternate Phone: [facility]/Zip Code:[place] [address] Email: Financial Information Financial Class:HMO and PPO Plans Primary Plan Desc:[employer] Primary Plan Number:[id number] Secondary Plan Desc:MEDICARE [facility] PFS USE Secondary Plan Number:[id number] Assessment Information Case Management Discharge Plan Note Case Management Discharge Discharge Order Complete? Answers: Yes Patient to Obtain Answers: via Family Medications Transportation Arranged Answers: Family/Friends Discharge Comments Notes: Pt was admitted with chest pain. Discharging home today with her and no CM needs. Date Signed: 05/18/2017 04:41 PM Electronically Signed By:ANNE Guerra LACE LACE Length of stay for Answers: Less than 1 day current admission Acuity / Level of Answers: No Care: Did the patient have an inpatient admission? Comorbidities - select Answers: Connective tissue disease all that apply Other Notes: fibromyalgia # of Emergency department Answers: 1-2 visits in the last 6 months Score: 5 Date Signed: 05/18/2017 04:44 PM Electronically Signed By:Antonette Moore SPECIAL EDUCATION TUTOR Intervention Information
[2017-05-18] MEDS ORDERED: NON-FORMULARY NEW DRUG (Omega-3 Fatty Acids/Fish Oil [Omega 3 1,000 Mg Softgel] 1 EACH) PO SCH (18:00)
--- NOTE | 2017-05-19 13:31 | GDS ---
[f rep st] DISCHARGE SUMMARY NEW AND ACUTE DIAGNOSES: 1. Chest pain, chest wall pain, secondary to costosternal junction pain, secondary to cardiopulmonar y resuscitation for anaphylaxis on a previous admission at [facility]. 2. Status post transcatheter aortic valve replacement procedure on 05/14 at [facility] and the aortic valve was functioning well. CHRONIC DIAGNOSES,: 1. Lupus erythematosus, on chronic prednisone therapy. 2. Fibromyalgia. 3. Status post transcatheter aortic valve replacement on 05/14/2017, at [facility] s. Aortic valve functioning well. 4. Pulmonary embolus in 2013. 5. Chronic back pain. CONSULTATION: Cardiology. PROCEDURES: Echocardiogram showed an EF of 65%. Mild concentric LVH is noted. Mild left atrial enl argement noted. Normal functioning TAVR with no AI noted. Mild MR without MV prolapse, and no peric ardial effusion. HOSPITAL COURSE: A 71-year-old female presented with a complaint of chest pain. Chest pain was note d to be in the anterior chest along the costosternal junctions and easily reproducible. She is known to be status post TAVR procedure at [facility] on 05/14. She was admitted. Trop onins were slightly elevated and downtrending primarily at the time of discharge. Cardiology consult ation indicated that the troponin was probably residual from her TAVR procedure and was simply not re lated to acute ischemia. ECG did not show findings of acute cardiac ischemia. Her anterior chest was treated with a lidocaine patch and a pillow for coughing and movement, which i mproved her pain significantly. PT evaluated the patient and found her stable for discharge and retu rn to home. DISCHARGE MEDICATIONS: New medications are Lovenox 80 mg subcu twice daily for bridging as her INR w as low at the time of admission as her anticoagulation had not yet been started following her TAVR pr ocedure. Other new medication is Dilaudid 2-4 mg p.o. q.4 hours p.r.n. pain #20 no refills, lidocaine 4% patch #14 were given, Senokot-S tablets are prescribed for constipation. Her continued medications are alendronate 70 mg weekly, lisinopril 20 mg h.s., EpiPen injector, Klono pin 1 mg p.o. daily, Imitrex 25-50 mg q.2 hours p.r.n. headache, multivitamins, prednisone 2.5 mg power franck Klor-Con 20 mEq daily, morphine SR 30 mg daily, herbal supplementation, Coumadin 4 mg daily, Bact rim DS 1 tablet daily, omega-3 fatty acids, Fioricet 1 tablet p.o. q.4 hours p.r.n. pain, Flexeril 10 mg p.o. h.s. her Coumadin is 3 mg p.o. every other day alternating with 4 mg, Zoloft 25 mg daily. L yrica 150 mg twice daily. PLAN: The patient will follow up at [facility] regarding her TAVR procedure, yet she has been given a followup if needed with Tien Cummins in the local area and Dr. Antony Genao who is her primary care provider. TIME: This discharge required 50 minutes, greater than 50% to personnel counselor and coordinate her care. /[id number]/MODL
== END 2017-05-18 17:30 | disposition home or self-care (01) ==
LOC: F2W 18:15
PROVIDERS: ADMIT Internal Medicine; ATTEND Internal Medicine Pulmonary Disease
DX: R07.89 Other chest pain (principal); X58.XXXA Exposure to other specified factors, initial encounter; T50.8X5D Adverse effect of diagnostic agents, subsequent encounter; Y92.234 Operating room of hospital as the place of occurrence of the external cause; M32.9 Systemic lupus erythematosus, unspecified; M79.7 Fibromyalgia; I45.19 Other right bundle-branch block; G89.29 Other chronic pain; Z98.890 Other specified postprocedural states; Z86.711 Personal history of pulmonary embolism; Z79.01 Long term (current) use of anticoagulants; Z79.52 Long term (current) use of systemic steroids; Z79.891 Long term (current) use of opiate analgesic; Z95.2 Presence of prosthetic heart valve; Z89.429 Acquired absence of other toe(s), unspecified side; Z98.1 Arthrodesis status
CPT/HCPCS: 71046; 78580; 93005; 93308; 96374; 97161; 97165; 99285; A9540; G0378; G8978; G8979; G8980; G8987; G8988; G8989; J1170; J1650; J7512

== ENCOUNTER → 2017-07-11 | Outpatient (CLI) | payer OTHER | LOC: FIMAGING 13:01 | PROVIDERS: ATTEND Nurse Practitioner Adult Health | DX: R91.8 Other nonspecific abnormal finding of lung field (principal); Z95.2 Presence of prosthetic heart valve ==

== ENCOUNTER 2017-07-29 19:34 | Emergency (ER) | payer OTHER ==
[2017-07-29 19:54] VITALS: BP 145/76
--- NOTE | 2017-07-29 20:50 | EDPHY ---
H & P Stated Complaint: L knee pain s/p fall Time Seen by Provider: 07/29/17 20:31 - Personal History Current Tetanus Diphtheria and Acellular Pertussis (TDAP): Yes Tetanus Vaccine Date: probably <10 years - Medical/Surgical History Hx Asthma: No Hx Chronic Respiratory Disease: No Hx Diabetes: No Hx Cardiac Disease: Yes Hx Renal Disease: No Hx Cirrhosis: No Hx Alcoholism: No Hx HIV/AIDS: No Hx Splenectomy or Spleen Trauma: No Other PMH: LUPUS, HTN, fibromyalgia, migraines, elbow surgery, appy, parathyroidectomy, right shoulder surgery, back surgery, tosillectomy, feet sx/ aortic valve replacement - Social History Smoking Status: Never smoked Constitutional: Initial Vital Signs Temperature (C) 36.6 C 07/29/17 19:52 Heart Rate 97 07/29/17 19:52 Respiratory Rate 16 07/29/17 19:52 Blood Pressure 145/76 H 07/29/17 19:52 O2 Sat (%) 92 07/29/17 19:52 O2 Delivery Mode Room Air Allergies/Adverse Reactions: fentanyl [Fentanyl] Allergy (Intermediate, Verified 07/29/17 19:51) Hives cephalexin monohydrate [From Keflex] Allergy (Verified 07/29/17 19:51) Other-Enter Comments Iodine and Iodide Containing Produc Allergy (Verified 07/29/17 19:51) Penicillins Allergy (Verified 07/29/17 19:51) Other-Enter Comments BEE STINGS Allergy (Severe, Uncoded 07/29/17 19:51) Anaphylaxis Home Medications: Medication Instructions Recorded Alendronate Sodium [Fosamax 70 MG 70 mg PO WE@0700 04/16/14 (*)] EPINEPHrine [Epipen 0.3 MG] 0.3 mg IM ONCE PRN 04/16/14 Lisinopril [Zestril 20 mg (*)] 20 mg PO HS 04/16/14 Multivitamins [Multivitamin (*)] 1 each PO DAILY@05 04/16/14 SUMAtriptan [Imitrex 50 MG (*)] 25 - 50 mg PO Q2H PRN 04/16/14 clonazePAM [klonoPIN (*)] 1 mg PO DAILY06 04/16/14 Herbals/Supplements -Info Only 1 ea PO DAILY 03/19/16 Potassium Cl [Klor-Con 20 meq (*)] 20 meq PO DAILY@1230 03/19/16 Warfarin Sodium [Coumadin 4MG (*)] 4 mg PO EVERY OTHER DAY 03/19/16 morphINE SR [MS Contin/Oramorph SR 30 mg PO DAILY@0500,1230,2330 03/19/16 30 mg (*)] predniSONE 2.5 mg PO DAILY@05 03/19/16 Sulfamethox/Tmp 800/160 mg 1 tab PO DAILY 05/08/16 [Bactrim DS] Acet/Caffeine/Buta Fioricet 1 each PO Q6 PRN 05/11/16 [Fioricet (*)] Melville-3 Fatty Acids/Fish Oil 1 each PO DAILY@18 05/11/16 [Melville 3 1,000 mg Softgel] Acetaminophen [Tylenol 325mg (*)] 325 - 650 mg PO Q4HRS PRN #0 tab 05/21/16 Cyclobenzaprine [Flexeril 10 MG 10 mg PO HS PRN 05/17/17 (*)] Magnesium Oxide 250 mg PO DAILY 05/17/17 Pregabalin [Lyrica 150mg (*)] 150 mg PO BID@06,15 05/17/17 Sertraline HCl [Zoloft 25mg (*)] 25 mg PO DAILY 05/17/17 Warfarin Sodium [Coumadin 3MG (*)] 3 mg PO EVERY OTHER DAY 05/17/17 oxyCODONE/APAP 5/325 [Percocet 1 tab PO Q6H 05/17/17 5/325 (*)] Enoxaparin [Lovenox 80 MG (*)] 80 mg SC BID #10 syr 05/18/17 HYDROmorphone HCL [Dilaudid 2 mg 2 - 4 mg PO Q4HRS PRN #20 tab 05/18/17 (*)] Lidocaine 4%/Menthol 1% [Icy Hot 1 patch TD DAILY #14 patch 05/18/17 Lidocaine/Menthol 4%/1% Patch (*)] Sennosides/Docusate Sodium 1 - 2 tab PO BID #20 tab 05/18/17 [Senokot-S] Medical Decision Making - Diagnostics Imaging Results: Imaging Impressions Knee X-Ray 07/29/17 19:54 Impression: 1. Negative. No acute fracture or effusion. 2. Mild osteoarthritis preferentially affecting the patellofemoral joint. Imaging: I viewed and interpreted images myself ED Course/Re-evaluation: CHIEF COMPLAINT: Left knee pain HISTORY OF PRESENT ILLNESS: The patient is a 71 y/o female with a history of lupus and chronic pain complaining of left knee pain worsening since a fall 2 days ago. She describes tripping and twisting her knee in the fall. She initially did not have much pain and was able to walk, but over the 1-2 days she has developed increasing pain, decreasing stability, and more difficulty walking. Her pain is localized to both sides of her knee and somewhat posterior. Pain is worse with movement or bearing weight. No weakness, paresthesias, fever, other trauma, or other complaints. REVIEW OF SYSTEMS: A 10 point review of systems was performed and is negative with the exception of the elements mentioned in the history of present illness. PHYSICAL EXAM: HR, BP, O2 Sat, RR. Temp noted General Appearance: Alert, well hydrated, appropriate, and non-toxic appearing. Head: Atraumatic without scalp tenderness or obvious injury Eyes: Pupils equal, round, reactive to light and accommodation, EOMI, no trauma , no injection. Nose: Atraumatic, no rhinorrhea, clear. Throat: Mucus membranes moist. Neck: Supple, non-tender, no lymphadenopathy. Respiratory: No distress. Cardiovascular:Good capillary refill all extremities. Musculoskeletal: Tenderness along lateral and medial aspect of left knee, worse with ROM. Otherwise normal active ROM of all extremities, atraumatic. Neurological: Alert, appropriate, and interactive. Nonfocal. Skin: No rashes, good turgor, no nodules on palpation. PAST MEDICAL HISTORY: Lupus on chronic prednisone, fibromyalgia, PE 2013, chronic back pain PAST SURGICAL HISTORY: TAVR 05/14/17 SOCIAL HISTORY: Family member at bedside. Lives in [place]. Retired. DIAGNOSTICS/PROCEDURES/CRITICAL CARE TIME: Left knee x-rays: negative for fracture, chronic tendon calcification DIFFERENTIAL DIAGNOSIS: The differential diagnosis for the patient's knee injury included but was not limited to fracture, ligamentous injury, contusion, muscular strain, and meniscus injury. MEDICAL DECISION MAKING: This is a 71 y/o female with lupus who presents with gradually worsening left knee pain and instability secondary to a mechanical fall 2 days ago. She has tenderness to the lateral and medial aspects of her knee that is worse with passive ROM. She is neurovascularly intact. Presentation likely indicates ligamentous injury. X-ray is negative for fracture or effusion. Plan for knee immobilizer and follow up with her orthopedist as already scheduled on Saturday. Return precautions discussed. She is comfortable with this plan. Departure - Departure Disposition: Home, Routine, Self-Care Clinical Impression: Knee pain, left Qualifiers: Chronicity: acute Qualified Code(s): M25.562 - Pain in left knee Condition: Good Instructions: Knee Pain (ED), Knee Immobilizer (ED) Additional Instructions: 1. Wear knee immobilizer for support and comfort. 2. Bear weight if possible. Use crutches if needed. 3. Follow up with Dr. Stein this week as scheduled. 4. Return to the ED for worsening of condition. Referrals: Antony Genao MD [Primary Care Provider] - As per Instructions Yunier Stein MD [Medical Doctor] - As per Instructions Report Scribed for: Neto Delacruz Report Scribed by: Emeli Espinoza Date of Report: 07/29/17 Time of Report: 20:50
== END 2017-07-29 21:14 | disposition home or self-care (01) ==
DX: S89.92XA Unspecified injury of left lower leg, initial encounter (principal); I10 Essential (primary) hypertension; Z79.01 Long term (current) use of anticoagulants; W01.0XXA Fall on same level from slipping, tripping and stumbling without subsequent striking against object, initial encounter
CPT/HCPCS: L1830

== ENCOUNTER 2017-08-11 00:24 | Emergency (ER) | payer OTHER ==
[2017-08-11 01:24] LABS: PLATELET COUNT 277 10^3/uL (150-400)
--- NOTE | 2017-08-11 01:42 | CPEKG ---
Heart Rate: 87 RR Interval: 690 P-R Interval: 152 QRSD Interval: 94 QT Interval: 400 QTC Interval: 482 P Culver: 47 QRS Culver: 17 T Wave Culver: 50 EKG Severity - NORMAL ECG - EKG Impression: SINUS RHYTHM Electronically Signed By: Deniz Palm 11-Aug-2017 06:56:56
[2017-08-11 01:46] LABS: CREATINE KINASE 107 IU/L (0-156)
--- NOTE | 2017-08-11 02:00 | EDPHY ---
H & P Stated Complaint: Bilateral leg edema, heart hx Time Seen by Provider: 08/11/17 01:58 HPI/ROS: HPI CHIEF COMPLAINT: Bilateral lower extremity edema HISTORY OF PRESENT ILLNESS: Patient very pleasant 71-year-old female, she presents emergency room with worsening bilateral lower extremity edema. She reports to me that this been getting worse over the past week but acutely worse over the past 2 days. She denies any significant fever. Denies chest pain or shortness of breath. She recently reports that she had a TAVR at [facility] in May over aortic valve. She denies any significant shortness of breath or chest pain. Denies productive cough or fever. Denies vomiting or diarrhea. She decided come the emergency room due to increasing swelling of her lower extremities. Past Medical History: Fibromyalgia, lupus, recent aortic valve TAVR. In May. Past Surgical History: TAVR in May. Social History: Denies daily use drugs alcohol tobacco. Family History: Noncontributory ROS REVIEW OF SYSTEMS: A comprehensive 10 point review of systems is otherwise negative aside from elements mentioned in the history of present illness. Exam Constitutional appears well nontoxic no acute distress, triage nursing summary reviewed, vital signs reviewed, awake/alert. Eyes normal conjunctivae and sclera, EOMI, PERRLA. HENT normal inspection, atraumatic, moist mucus membranes, no epistaxis, neck supple/ no meningismus, no raccoon eyes. Respiratory clear to auscultation bilaterally, normal breath sounds, no respiratory distress, no wheezing. Cardiovascular rate normal, regular rhythm, no murmur, no edema, distal pulses normal. Gastrointestinal soft, non-tender, no rebound, no guarding, normal bowel sounds, no distension, no pulsatile mass. Genitourinary no CVA tenderness. Musculoskeletal bilateral lower extremity edema 1+, worse on the left leg than right leg, both legs are neurovascular intact with good distal pulse, good cap refill, no midline vertebral tenderness, full range of motion, no calf swelling , no tenderness of extremities, no meningismus, good pulses, neurovascularly intact. Skin pink, warm, & dry, no rash, skin atraumatic. Neurologic awake, alert and oriented x 3, AAOx3, moves all 4 extremities equally, motor intact, sensory intact, CN II-XII intact, normal cerebellar, normal vision, normal speech. Psychiatric normal mood/affect. Heme/Lymph/Immune no lymphadenopathy. Differential Diagnosis: Includes but is not limited to in a particular order DVTs, renal failure, peripheral edema, electrolyte disturbance, CHF Medical Decision Making: Plan for this patient will proceed with ultrasound bilateral lower extremities, chest x-ray, basic blood work and re-evaluate. Re-evaluation: EKG interpretation by me on record in [employer] system. Impression time of EKG 1:40 a.m., sinus rhythm rate of [address] elevation or ST depression. No significant T-wave abnormalities. This is unremarkable EKG 0418: Patient resting comfortably no acute distress. She denies any chest pain shortness of breath. Vital signs are stable. She is now requesting some pain medicine for achiness in her legs. She normally takes morphine 30 mg twice a day for fibromyalgia chronic pain. I did review her ultrasound here they do not show any evidence of DVTs. Additionally I reviewed her blood work. There is no evidence of heart failure on exam. No murmur appreciated. Chest x-ray shows normal size heart cardiac silhouette no pleural effusions and no pulmonary edema. Kidney function is normal. BNP is not elevated. Troponin negative. Her Coumadin level is supratherapeutic at 5.16. Discussed with her that she should hold this for the next 2 days and get her INR rechecked on Saturday. She understands. Additionally she is on Lasix. I do recommend she increase her dose for the next 2-3 days. As for her bilateral lower extremity peripheral edema I recommend increasing her diuretic for the next 2-3 days. Compression stockings in elevating her legs. Recommend following up with her primary care doctor. She understands. She is comfortable this plan. Additionally she understands return emergency room she develops worsening symptoms includes worsening shortness of breath, chest pain, worsening peripheral swelling. EKG interpretation by me on record in [employer] system. Impression time of EKG 1:40 a.m., sinus rhythm rate of [address] elevation or ST depression. No significant T-wave abnormalities. ED x-ray chest one view: No evidence of failure. No cardiomegaly no pulmonary edema. No pleural effusions. Source: Patient - Personal History Current Tetanus Diphtheria and Acellular Pertussis (TDAP): Yes Tetanus Vaccine Date: probably <10 years - Medical/Surgical History Hx Asthma: No Hx Chronic Respiratory Disease: No Hx Diabetes: No Hx Cardiac Disease: Yes Hx Renal Disease: No Hx Cirrhosis: No Hx Alcoholism: No Hx HIV/AIDS: No Hx Splenectomy or Spleen Trauma: No Other PMH: LUPUS, HTN, fibromyalgia, migraines, elbow surgery, appy, parathyroidectomy, right shoulder surgery, back surgery, tosillectomy, feet sx/ aortic valve replacement - Social History Smoking Status: Never smoked Constitutional: Initial Vital Signs Temperature (C) 36.5 C 08/11/17 00:25 Heart Rate 97 08/11/17 00:25 Respiratory Rate 18 08/11/17 00:25 Blood Pressure 158/97 H 08/11/17 00:25 O2 Sat (%) 93 08/11/17 00:25 O2 Delivery Mode Room Air Allergies/Adverse Reactions: fentanyl [Fentanyl] Allergy (Intermediate, Verified 08/11/17 00:32) Hives cephalexin monohydrate [From Keflex] Allergy (Verified 08/11/17 00:32) Other-Enter Comments Iodine and Iodide Containing Produc Allergy (Verified 08/11/17 00:32) Penicillins Allergy (Verified 08/11/17 00:32) Other-Enter Comments BEE STINGS Allergy (Severe, Uncoded 07/29/17 19:51) Anaphylaxis Home Medications: Medication Instructions Recorded Alendronate Sodium [Fosamax 70 MG 70 mg PO WE@0700 04/16/14 (*)] EPINEPHrine [Epipen 0.3 MG] 0.3 mg IM ONCE PRN 04/16/14 Lisinopril [Zestril 20 mg (*)] 20 mg PO HS 04/16/14 Multivitamins [Multivitamin (*)] 1 each PO DAILY@05 04/16/14 SUMAtriptan [Imitrex 50 MG (*)] 25 - 50 mg PO Q2H PRN 04/16/14 clonazePAM [klonoPIN (*)] 1 mg PO DAILY06 04/16/14 Herbals/Supplements -Info Only 1 ea PO DAILY 03/19/16 Potassium Cl [Klor-Con 20 meq (*)] 20 meq PO DAILY@1230 03/19/16 Warfarin Sodium [Coumadin 4MG (*)] 4 mg PO EVERY OTHER DAY 03/19/16 morphINE SR [MS Contin/Oramorph SR 30 mg PO DAILY@0500,1230,2330 03/19/16 30 mg (*)] predniSONE 2.5 mg PO DAILY@05 03/19/16 Sulfamethox/Tmp 800/160 mg 1 tab PO DAILY 05/08/16 [Bactrim DS] Acet/Caffeine/Buta Fioricet 1 each PO Q6 PRN 05/11/16 [Fioricet (*)] [place]-3 Fatty Acids/Fish Oil 1 each PO DAILY@18 05/11/16 [Choudrant 3 1,000 mg Softgel] Acetaminophen [Tylenol 325mg (*)] 325 - 650 mg PO Q4HRS PRN #0 tab 05/21/16 Cyclobenzaprine [Flexeril 10 MG 10 mg PO HS PRN 05/17/17 (*)] Magnesium Oxide 250 mg PO DAILY 05/17/17 Pregabalin [Lyrica 150mg (*)] 150 mg PO BID@06,15 05/17/17 Sertraline HCl [Zoloft 25mg (*)] 25 mg PO DAILY 05/17/17 Warfarin Sodium [Coumadin 3MG (*)] 3 mg PO EVERY OTHER DAY 05/17/17 oxyCODONE/APAP 5/325 [Percocet 1 tab PO Q6H 05/17/17 5/325 (*)] Enoxaparin [Lovenox 80 MG (*)] 80 mg SC BID #10 syr 05/18/17 HYDROmorphone HCL [Dilaudid 2 mg 2 - 4 mg PO Q4HRS PRN #20 tab 05/18/17 (*)] Lidocaine 4%/Menthol 1% [Icy Hot 1 patch TD DAILY #14 patch 05/18/17 Lidocaine/Menthol 4%/1% Patch (*)] Sennosides/Docusate Sodium 1 - 2 tab PO BID #20 tab 05/18/17 [Senokot-S] Medical Decision Making - Data Points Laboratory Results: Laboratory Results 08/11/17 01:00 08/11/17 01:00 08/11/17 08/11/17 08/11/17 01:00 01:00 01:00 WBC 10.55 10^3/uL H 10^3/uL (3.80-9.50) RBC 4.20 10^6/uL 10^6/uL (4.18-5.33) Hgb 12.0 g/dL L g/dL (12.6-16.3) Hct 37.1 % L % (38.0-47.0) MCV 88.3 fL fL (81.5-99.8) MCH 28.6 pg pg (27.9-34.1) MCHC 32.3 g/dL L g/dL (32.4-36.7) RDW 13.9 % % (11.5-15.2) Plt Count 277 10^3/uL 10^3/uL (150-400) MPV 9.8 fL fL (8.7-11.7) Neut % (Auto) 55.0 % % (39.3-74.2) Lymph % (Auto) 34.3 % % (15.0-45.0) Hopkins % (Auto) 10.0 % % (4.5-13.0) Eos % (Auto) 0.0 % L % (0.6-7.6) Baso % (Auto) 0.4 % % (0.3-1.7) Nucleat RBC Rel Count 0.0 % % (0.0-0.2) Absolute Neuts (auto) 5.80 10^3/uL 10^3/uL (1.70-6.50) Absolute Lymphs (auto) 3.62 10^3/uL H 10^3/uL (1.00-3.00) Absolute Monos (auto) 1.06 10^3/uL H 10^3/uL (0.30-0.80) Absolute Eos (auto) 0.00 10^3/uL L 10^3/uL (0.03-0.40) Absolute Basos (auto) 0.04 10^3/uL 10^3/uL (0.02-0.10) Absolute Nucleated RBC 0.00 10^3/uL 10^3/uL (0-0.01) Immature Gran % 0.3 % % (0.0-1.1) Immature Gran # 0.03 10^3/uL 10^3/uL (0.00-0.10) PT 46.9 SEC H SEC (12.0-15.0) INR 5.16 H* (0.83-1.16) APTT 66.2 SEC H SEC (23.0-38.0) Sodium 141 mEq/L mEq/L (135-145) Potassium 4.1 mEq/L mEq/L (3.5-5.2) Chloride 101 mEq/L mEq/L (97-110) Carbon Dioxide 29 mEq/l mEq/l (22-31) Anion Gap 11 mEq/L mEq/L (8-16) BUN 15 mg/dL mg/dL (7-23) Creatinine 0.9 mg/dL mg/dL (0.6-1.0) Estimated GFR > 60 Glucose 134 mg/dL H mg/dL (70-100) Calcium 8.0 mg/dL L mg/dL (8.5-10.4) Magnesium 1.9 mg/dL mg/dL (1.6-2.3) Total Bilirubin 0.5 mg/dL mg/dL (0.1-1.4) Conjugated Bilirubin 0.4 mg/dL mg/dL (0.0-0.5) Unconjugated Bilirubin 0.1 mg/dL mg/dL (0.0-1.1) AST 40 IU/L IU/L (14-46) ALT 35 IU/L IU/L (9-52) Alkaline Phosphatase 69 IU/L IU/L (38-126) Creatine Kinase 107 IU/L IU/L (0-156) CK-MB (CK-2) Fraction 2.26 ng/mL ng/mL (0.00-4.55) Troponin I 0.014 ng/mL ng/mL (0.000-0.034) NT-Pro-B Natriuret Pep 103 pg/mL pg/mL (0-125) Total Protein 6.7 g/dL g/dL (6.3-8.2) Albumin 3.6 g/dL g/dL (3.5-5.0) Departure - Departure Disposition: Home, Routine, Self-Care Clinical Impression: Peripheral edema, Supratherapeutic INR Condition: Good Instructions: Leg Edema (ED), Elevated INR (ED) Additional Instructions: 1. Hold her Coumadin for the next 2 days get her INR recheck to on Saturday. 2. Keep her legs elevated, use compression stockings 3. You may increase her diuretic for the next 2-3 days. 4. Return emergency review of worsening shortness of breath, chest pain, worsening swelling. 5. Year INR was 5.16 today. Please hold her Coumadin get re-checked on Saturday. 6. Follow up with your primary care doctor 7. Your ultrasounds of her legs do not show any evidence of clots. Referrals: Antony Genao MD [Primary Care Provider] - As per Instructions
[2017-08-11 02:02] LABS: PROTIME(PATIENT) 46.9 SEC (12.0-15.0)
[2017-08-11 02:03] LABS: INR 5.16 (0.83-1.16)
[2017-08-11 03:58] VITALS: BP 118/53
[2017-08-11] MEDS ORDERED: HYDROCODONE/APAP 5/325 TAB PO ONE (04:18)
== END 2017-08-11 04:49 | disposition home or self-care (01) ==
DX: R60.0 Localized edema (principal); R79.1 Abnormal coagulation profile; I10 Essential (primary) hypertension

== ENCOUNTER → 2017-08-13 | Outpatient (CLI) | payer OTHER | LOC: BMCIMAGING 14:35 | PROVIDERS: ATTEND Orthopaedic Surgery | DX: M79.89 Other specified soft tissue disorders (principal); M17.12 Unilateral primary osteoarthritis, left knee ==

== ENCOUNTER → 2017-09-13 | Outpatient (CLI) | payer OTHER | LOC: FIMAGING 13:10 | PROVIDERS: ATTEND Physician Assistant | DX: M54.5 Low back pain (principal); M51.36 Other intervertebral disc degeneration, lumbar region; Z98.1 Arthrodesis status ==

== ENCOUNTER 2017-09-16 11:53 | Emergency (ER) | payer OTHER ==
--- NOTE | 2017-09-16 12:11 | CPEKG ---
Heart Rate: 63 RR Interval: 952 P-R Interval: 160 QRSD Interval: 94 QT Interval: 400 QTC Interval: 410 P [place]: 45 QRS [place]: 12 T Wave [place]: 43 EKG Severity - NORMAL ECG - EKG Impression: SINUS RHYTHM Electronically Signed By: Ludivina Thibodeaux 16-Sep-2017 15:01:46
--- NOTE | 2017-09-16 12:16 | EDPHY ---
H & P Stated Complaint: SOB for 4 days, upper back pain. Time Seen by Provider: 09/16/17 12:15 HPI/ROS: CHIEF COMPLAINT: Swollen legs, dyspnea, dizziness HISTORY OF PRESENT ILLNESS: The patient is a 71 y/o female with several comorbidities including lupus and recent TAVR in May complaining of worsening leg swelling, shortness of breath, and dizziness. She has had leg swelling for a while and her research instructor has put her on diuretics for this. Over the last four days, she's noticed dyspnea that is particularly worse with mild exertion or lying flat. This is sometimes associated with dizziness. She is sleeping poorly due to this and bilateral leg cramping. She denies chest pain , fever, cough, urinary symptoms, vomiting, or diarrhea. She called [facility] this morning for evaluation of these symptoms and was referred to the ED. REVIEW OF SYSTEMS: A ten point review of systems was performed and is negative with the exception of the items mentioned in the HPI. Past medical history: 1. Lupus, connective tissue - chronic prednisone 2. Fibromyalgia - opiate dependency 3. Neuropathy in both legs 4. Hypertension 5. Migraines 6. Aortic stenosis requiring TAVR 7. Provoked PE in 2013 8. Chronic back pain with multiple surgeries 9. Osteomyelitis Past surgical history: 1. TAVR May 2017 at [facility] in [place] 2. Elbow surgery 3. Appendectomy 4. Lumbar spine surgery by Dr. Sidney Armas May. 2015, several prior spine surgeries 5. Parathyroidectomy 6. Right shoulder surgery 7. Tonsillectomy 8. 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 Family history: Noncontributory Social history: , retired, lives in [place]. 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 Cummins General Appearance: Alert. Vital signs reviewed. Eyes: Pupils equal and round, no conjunctival injection, no discharge. Anicteric. ENT, Mouth: Mucous membranes are moist, no oropharyngeal erythema or edema. Neck: No lymphadenopathy, supple. Respiratory: Lungs are clear to auscultation; no wheezes, rales, or rhonchi. Cardiovascular: Regular rate and rhythm; no murmur, rub, or gallop. Gastrointestinal: Abdomen is soft diffusely mildly tender, no masses or organomegaly. Skin: Warm and dry, no rashes on exposed skin, normal color. Back: Nontender to palpation over the thoracolumbar spine. No CVAT. Extremities: 2+ pitting lower extremity edema bilaterally, no calf tenderness. Neurological: Alert and oriented. Moving all four extremities easily and equally. Psychiatric: Normal affect. - Personal History Current Tetanus Diphtheria and Acellular Pertussis (TDAP): Yes Tetanus Vaccine Date: probably <10 years - Medical/Surgical History Hx Asthma: No Hx Chronic Respiratory Disease: No Hx Diabetes: No Hx Cardiac Disease: Yes Hx Renal Disease: No Hx Cirrhosis: No Hx Alcoholism: No Hx HIV/AIDS: No Hx Splenectomy or Spleen Trauma: No Other PMH: LUPUS, HTN, fibromyalgia, migraines, elbow surgery, appy, parathyroidectomy, right shoulder surgery, back surgery, tosillectomy, feet sx/ aortic valve replacement - Social History Smoking Status: Never smoked Constitutional: Initial Vital Signs Temperature (C) 36.7 C 09/16/17 11:54 Heart Rate 64 09/16/17 11:54 Respiratory Rate 18 09/16/17 11:54 Blood Pressure 124/76 H 09/16/17 11:54 O2 Sat (%) 93 09/16/17 11:54 O2 Delivery Mode Room Air Allergies/Adverse Reactions: fentanyl [Fentanyl] Allergy (Intermediate, Verified 08/11/17 00:32) Hives cephalexin monohydrate [From Keflex] Allergy (Verified 08/11/17 00:32) Other-Enter Comments Iodine and Iodide Containing Produc Allergy (Verified 08/11/17 00:32) Penicillins Allergy (Verified 08/11/17 00:32) Other-Enter Comments BEE STINGS Allergy (Severe, Uncoded 07/29/17 19:51) Anaphylaxis Home Medications: Medication Instructions Recorded Alendronate Sodium [Fosamax 70 MG 70 mg PO WE@0700 04/16/14 (*)] EPINEPHrine [Epipen 0.3 MG] 0.3 mg IM ONCE PRN 04/16/14 Lisinopril [Zestril 20 mg (*)] 20 mg PO HS 04/16/14 Multivitamins [Multivitamin (*)] 1 each PO DAILY@05 04/16/14 SUMAtriptan [Imitrex 50 MG (*)] 25 - 50 mg PO Q2H PRN 04/16/14 clonazePAM [klonoPIN (*)] 1 mg PO DAILY06 04/16/14 Herbals/Supplements -Info Only 1 ea PO DAILY 03/19/16 Potassium Cl [Klor-Con 20 meq (*)] 20 meq PO DAILY@1230 03/19/16 Warfarin Sodium [Coumadin 4MG (*)] 4 mg PO EVERY OTHER DAY 03/19/16 morphINE SR [MS Contin/Oramorph SR 30 mg PO DAILY@0500,1230,2330 03/19/16 30 mg (*)] predniSONE 2.5 mg PO DAILY@05 03/19/16 Sulfamethox/Tmp 800/160 mg 1 tab PO DAILY 05/08/16 [Bactrim DS] Acet/Caffeine/Buta Fioricet 1 each PO Q6 PRN 05/11/16 [Fioricet (*)] Williams-3 Fatty Acids/Fish Oil 1 each PO DAILY@18 05/11/16 [Williams 3 1,000 mg Softgel] Acetaminophen [Tylenol 325mg (*)] 325 - 650 mg PO Q4HRS PRN #0 tab 05/21/16 Cyclobenzaprine [Flexeril 10 MG 10 mg PO HS PRN 05/17/17 (*)] Magnesium Oxide 250 mg PO DAILY 05/17/17 Pregabalin [Lyrica 150mg (*)] 150 mg PO BID@06,15 05/17/17 Sertraline HCl [Zoloft 25mg (*)] 25 mg PO DAILY 05/17/17 Warfarin Sodium [Coumadin 3MG (*)] 3 mg PO EVERY OTHER DAY 05/17/17 oxyCODONE/APAP 5/325 [Percocet 1 tab PO Q6H 05/17/17 5/325 (*)] Enoxaparin [Lovenox 80 MG (*)] 80 mg SC BID #10 syr 05/18/17 HYDROmorphone HCL [Dilaudid 2 mg 2 - 4 mg PO Q4HRS PRN #20 tab 05/18/17 (*)] Lidocaine 4%/Menthol 1% [Icy Hot 1 patch TD DAILY #14 patch 05/18/17 Lidocaine/Menthol 4%/1% Patch (*)] Sennosides/Docusate Sodium 1 - 2 tab PO BID #20 tab 05/18/17 [Senokot-S] Medical Decision Making - Diagnostics Imaging: I viewed and interpreted images myself ED Course/Re-evaluation: This is a 71 y/o female with lupus and recent TAVR who presents with a 4-day history of worsening exertional dyspnea and orthopnea with dizziness in the setting of ongoing leg edema. She has 2+ pitting edema bilaterally. Lungs are clear. Suspect CHF. Plan for IV, labs, EKG, chest x-ray. The 12 lead EKG was interpreted by myself. Sinus rate 63. See hard copy and/or "tracemaster" electronic copy for interpretation. Chest x-ray: nothing acute, similar to prior 08/11/17. Follow up chest CT recommended as previously noted. Reassessed patient and discussed findings. Labs are unremarkable. I've found no signs of heart failure or other clear etiology for her symptoms. There is no evidence of pulmonary infection. She has a history of PE, is appropriately anticoagulated. She thinks she is supposed to get a CT scan of some kind, but is unable to tell me further information about this and says her PCP would know. She expresses that she would like to go home as soon as possible even if we are unable to contact her PCP to discuss this. We have been unable to get in touch with her PCP. Based on prior chest x-rays, she is likely referring to routine chest CT follow-up for right infiltrate vs scarring. 1444: Consulted with Dr. Valdez, research instructor. The patient can follow up with their office as an outpatient. Patient will be discharged home with recommendation to follow up with her PCP and research instructor this week. Return precautions discussed. She is comfortable with plan for discharge. Differential Diagnosis: Shortness of breath including but not limited to pulmonary infectious process, COPD, asthma, pulmonary embolus and congestive heart failure. - Data Points Laboratory Results: Laboratory Results 09/16/17 12:15 09/16/17 12:15 Point of Care Test Results: Chemistry 09/16/17 12:18 POC Troponin I 0.01 ng/mL ng/mL (0.00-0.08) Departure - Departure Disposition: Home, Routine, Self-Care Clinical Impression: Exertional dyspnea, Orthopnea, Bilateral leg edema Condition: Good Instructions: Leg Edema (ED), Dyspnea (ED) Additional Instructions: Follow up with your primary care provider and research instructor in the next week. Referrals: Antony Genao MD [Primary Care Provider] - As per Instructions Reggie Cummins MD [Medical Doctor] - As per Instructions Report Scribed for: Ludivina Thibodeaux Report Scribed by: Emeli Espinoza Date of Report: 09/16/17 Time of Report: 12:36 Physician Review and Approval Statement: 09/16/17 12:16 Portions of this note were transcribed by the medical specialist. I, Dr. Ludivina Thibodeaux, personally performed the history, physical exam, and medical decision- making; and confirmed the accuracy of the information in the transcribed note.
[2017-09-16 12:34] LABS: PLATELET COUNT 247 10^3/uL (150-400)
[2017-09-16 12:44] LABS: INR 2.42 (0.83-1.16); PROTIME(PATIENT) 26.3 SEC (12.0-15.0)
[2017-09-16 15:08] VITALS: BP 108/66
== END 2017-09-16 15:12 | disposition home or self-care (01) ==
DX: R06.09 Other forms of dyspnea (principal); R06.01 Orthopnea; R60.0 Localized edema; I10 Essential (primary) hypertension; Z79.01 Long term (current) use of anticoagulants
CPT/HCPCS: 84484-PO

== ENCOUNTER → 2017-09-30 | Outpatient (CLI) | payer OTHER | LOC: BMCIMAGING 13:54 | PROVIDERS: ATTEND Internal Medicine | DX: R05 Cough (principal); R50.9 Fever, unspecified ==

== ENCOUNTER 2018-05-09 18:48 | Inpatient (IN) | payer OTHER ==
[2018-05-09] MEDS ORDERED: VANCOMYCIN HCL/NORMAL SALINE 250 ML IV ONE (19:23)
--- NOTE | 2018-05-09 19:28 | EDPHY ---
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 Also peripheral neuropathy. Then she noticed a crack around her foot about a week or 2 ago. She followed up with her dog behaviorist Dr. Guadalupe today because it has gotten worse and become erythematous and purulent. He told her to come to the hospital for IV antibiotics and admission. She has not had a fever. She does not have significant pain secondary to her neuropathy. Severity: Moderate Modifying factors: None REVIEW OF SYSTEMS: Constitutional: denies: chills, fever, recent illness, recent injury EENTM: denies: blurred vision, double vision, nose congestion Respiratory: denies: cough, shortness of breath Cardiac: denies: chest pain, irregular heart rate, lightheadedness, palpitations Gastrointestinal/Abdominal: denies: abdominal pain, diarrhea, nausea, vomiting, blood streaked stools Genitourinary: denies: dysuria, frequency, hematuria, pain Musculoskeletal: denies: joint pain, muscle pain Skin: denies: lesions, rash, jaundice, bruising Neurological: denies: headache, numbness, paresthesia, tingling, dizziness, weakness Hematologic/Lymphatic: denies: blood clots, easy bleeding, easy bruising Immunologic/allergic: denies: HIV/AIDS, transplant 10 systems reviewed and negative except as noted EXAM: GENERAL: Well-appearing, well-nourished and in no acute distress. HEAD: Atraumatic, normocephalic. EYES: Pupils equal round and reactive to light, extraocular movements intact, sclera anicteric, conjunctiva are normal. ENT: TMs normal, nares patent, oropharynx clear without exudates. Moist mucous membranes. NECK: Normal range of motion, supple without lymphadenopathy or JVD. LUNGS: Breath sounds clear to auscultation bilaterally and equal. No wheezes rales or rhonchi. HEART: Regular rate and rhythm without murmurs, rubs or gallops. ABDOMEN: Soft, nontender, normoactive bowel sounds. No guarding, no rebound. No masses appreciated. BACK: No CVA tenderness, no spinal tenderness, step-offs or deformities EXTREMITIES: Right great toe with wound on medial aspect, purulent, erythema up to midfoot, mild swelling. No bleeding. No obvious tenderness. Slightly warm to palpation. NEUROLOGICAL: Cranial nerves II through XII grossly intact. Normal speech, normal gait. 5/5 strength, normal movement in all extremities, normal sensation , normal reflexes PSYCH: Normal mood, normal affect. SKIN: Warm, dry, normal turgor, no visible rashes or lesions. Source: Patient, Family Exam Limitations: No limitations - Personal History Current Tetanus Diphtheria and Acellular Pertussis (TDAP): Unsure Tetanus Vaccine Date: probably <10 years - Medical/Surgical History Hx Asthma: No Hx Chronic Respiratory Disease: No Hx Diabetes: No Hx Cardiac Disease: Yes Hx Renal Disease: No Hx Cirrhosis: No Hx Alcoholism: No Hx HIV/AIDS: No Hx Splenectomy or Spleen Trauma: No Other PMH: LUPUS, HTN, fibromyalgia, migraines, elbow osteo, appy, parathyroidectomy, right shoulder surgery, back surgery, tosillectomy, feet sx/ TAVR - aortic valve replacement, R Ray amputaion - Family History Significant Family History: No pertinent family hx - Social History Smoking Status: Never smoked Alcohol Use: None Constitutional: Initial Vital Signs Temperature (C) 36.9 C 05/09/18 19:06 Heart Rate 111 H 05/09/18 19:06 Respiratory Rate 20 05/09/18 19:06 Blood Pressure 119/72 05/09/18 19:06 O2 Sat (%) 93 05/09/18 19:06 O2 Delivery Mode Room Air Allergies/Adverse Reactions: fentanyl [Fentanyl] Allergy (Intermediate, Verified 05/09/18 19:06) Hives cephalexin monohydrate [From Keflex] Allergy (Verified 05/09/18 19:06) Other-Enter Comments Iodine and Iodide Containing Produc Allergy (Verified 05/09/18 19:06) Penicillins Allergy (Verified 05/09/18 19:06) Other-Enter Comments BEE STINGS Allergy (Severe, Uncoded 05/09/18 19:06) Anaphylaxis Home Medications: Medication Instructions Recorded Alendronate Sodium [Fosamax 70 MG 70 mg PO WE@0700 04/16/14 (*)] EPINEPHrine [Epipen 0.3 MG] 0.3 mg IM ONCE PRN 04/16/14 Lisinopril [Zestril 20 mg (*)] 20 mg PO HS 04/16/14 Multivitamins [Multivitamin (*)] 1 each PO DAILY@05 04/16/14 SUMAtriptan [Imitrex 50 MG (*)] 25 - 50 mg PO Q2H PRN 04/16/14 clonazePAM [klonoPIN (*)] 1 mg PO DAILY06 04/16/14 Herbals/Supplements -Info Only 1 ea PO DAILY 03/19/16 Potassium Cl [Klor-Con 20 meq (*)] 20 meq PO DAILY@1230 03/19/16 morphINE SR [MS Contin/Oramorph SR 30 mg PO DAILY@0500,1230,2330 03/19/16 30 mg (*)] Sulfamethox/Tmp 800/160 mg 1 tab PO DAILY 05/08/16 [Bactrim DS] Acet/Caffeine/Buta Fioricet 1 each PO Q6 PRN 05/11/16 [Fioricet (*)] [place]-3 Fatty Acids/Fish Oil 1 each PO DAILY@18 05/11/16 [[place] 3 1,000 mg Softgel] Acetaminophen [Tylenol 325mg (*)] 325 - 650 mg PO Q4HRS PRN #0 tab 05/21/16 Cyclobenzaprine [Flexeril 10 MG 10 mg PO HS PRN 05/17/17 (*)] Magnesium Oxide 300 mg PO DAILY 05/17/17 Pregabalin [Lyrica 150mg (*)] 150 mg PO BID@06,15 05/17/17 Sertraline HCl [Zoloft 25mg (*)] 25 mg PO DAILY 05/17/17 oxyCODONE/APAP 5/325 [Percocet 1 tab PO Q6H 05/17/17 5/325 (*)] Ciprofloxacin [Cipro] 250 mg PO BID@999,199905/09/18 Ibuprofen [Motrin (*)] 600 mg PO Q6 PRN 05/09/18 Polyethylene Glycol 3350 [Miralax 17 gm PO DAILY PRN 05/09/18 17 gm (*)] Warfarin Sodium [Coumadin 2MG (*)] 2 mg PO DAILY16 05/09/18 predniSONE 2.5 mg PO DAILY06 05/09/18 Medical Decision Making - Diagnostics Imaging: I viewed and interpreted images myself (Concerning for lytic lesion) ED Course/Re-evaluation: The patient is concerning for chronic wound infection versus osteo. Will obtain blood cultures and started on antibiotics. Will plan to admit to the hospital. Discussed the case with Dr. Tran who will admit to the hospital service. Concern for osteomyelitis on x-ray. Patient's previous foot surgeries were done by Dr. Guadalupe from Podiatry. I have paged Podiatry on-call. 9:00 p.m. I discussed the case with Dr. Mcduffie who feels like this may represent a fracture possibly pathologic fracture if the patient has signs of osteomyelitis. I then spoke with Dr. Guadalupe who agrees with admission and will consult. Differential Diagnosis: Partial list of the Differential diagnosis considered include but were not limited to; osteomyelitis, cellulitis, chronic wound and although unlikely based on the history and physical exam, I also considered ischemia, gout. - Data Points Laboratory Results: Laboratory Results 05/10/18 04:34 05/10/18 04:34 Microbiology Results: MICROBIOLOGY 05/09/18 19:55 Blood Blood Culture - Preliminary Alpha Strep Not Pneumoniae 05/09/18 19:55 Blood Blood Culture - Preliminary Alpha Strep Not Pneumoniae 05/09/18 19:55 Blood Blood Panel (PCR) - Final Streptococcus 05/09/18 20:30 Toe - Anaerobic Tube/Swab Gram Stain - Final 05/09/18 20:30 Toe - Anaerobic Tube/Swab Wound Culture - Preliminary Medications Given: Clonazepam (Klonopin) 1 mg PO DAILY06 PADMINI Stop: 11/06/18 05:59 Last Admin: 05/12/18 05:12 Dose: 1 mg Heparin Sodium (Porcine) (Heparin Sc Injection) 5,000 unit SC Q8 PADMINI Stop: 11/05/18 21:59 Last Admin: 05/12/18 05:13 Dose: 5,000 unit Sodium Chloride (Ns) 1,000 mls @ 75 mls/hr IV CONT PADMINI Stop: 11/05/18 20:44 Last Admin: 05/12/18 03:41 Dose: 1,000 mls Vancomycin/Sodium Chloride (Vancomycin 1 Gm (Premix)) 250 mls @ 250 mls/hr IV Q12H PADMINI Stop: 06/09/18 20:29 Last Admin: 05/11/18 23:47 Dose: 250 mls Lisinopril (Zestril) 20 mg PO HS [facility] Stop: 11/06/18 20:59 Last Admin: 05/11/18 21:13 Dose: 20 mg Miscellaneous Medication (Magnesium Oxide [Magnesium Oxide]) 300 mg PO DAILY PADMINI Stop: 11/06/18 08:59 Last Admin: 05/11/18 08:35 Dose: 300 mg Morphine Sulfate (Ms Contin/Oramorph Sr) 30 mg PO DAILY@0500,1230,2330 [facility] Stop: 05/19/18 23:29 Last Admin: 05/12/18 05:12 Dose: 30 mg Oxycodone/Acetaminophen (Percocet 5/325) 1 tab PO Q6H [facility] Stop: 05/19/18 23:29 Last Admin: 05/12/18 05:11 Dose: 1 tab Potassium Chloride (Klor-Con) 20 meq PO DAILY@1230 [facility] Stop: 11/06/18 12:29 Last Admin: 05/11/18 12:30 Dose: Not Given Prednisone (Prednisone) 2.5 mg PO DAILY06 [facility] Stop: 11/06/18 05:59 Last Admin: 05/12/18 05:11 Dose: 2.5 mg Pregabalin (Lyrica) 150 mg PO BID@06,15 [facility] Stop: 11/06/18 05:59 Last Admin: 05/12/18 05:11 Dose: 150 mg Sertraline HCl (Zoloft) 25 mg PO DAILY [facility] Stop: 11/06/18 08:59 Last Admin: 05/11/18 08:35 Dose: 25 mg Warfarin Sodium (Coumadin) 2 mg PO DAILY16 [facility] Stop: 11/06/18 15:59 Last Admin: 05/11/18 15:21 Dose: 2 mg Discontinued Medications Bupivacaine HCl (Sensorcaine 0.5% Vial) Confirm Administered Dose 30 ml .ROUTE .STK-MED ONE Stop: 05/11/18 12:33 Last Admin: 05/11/18 12:58 Dose: 30 ml Bupivacaine HCl (Sensorcaine 0.5% Vial) Confirm Administered Dose 30 ml .ROUTE .STK-MED ONE Stop: 05/11/18 12:49 Last Admin: 05/11/18 13:46 Dose: Not Given Fentanyl (Sublimaze) 50 mcg IVP Q15M PRN PRN Reason: PAIN, SEVERE UNABLE TO TAKE PO Stop: 05/11/18 13:00 Last Admin: 05/11/18 12:05 Dose: 50 mcg Vancomycin/Sodium Chloride (Vancomycin 1 Gm (Premix)) 250 mls @ 250 mls/hr IV EDNOW ONE PRN Reason: Protocol Stop: 05/09/18 20:22 Last Admin: 05/09/18 19:59 Dose: 250 mls Sodium Chloride (Ns) 2,300 mls @ 383.3333 mls/hr 30 ml/kg infuse over 6 hr ( 2300 ml) IV EDNOW ONE PRN Reason: Protocol Stop: 05/10/18 02:04 Last Admin: 05/09/18 20:23 Dose: 2,300 mls Piperacillin/Tazobactam/Dextrose (Zosyn 3.375 Gm (Premix)) 50 mls @ 100 mls/hr IV Q8HRS PADMINI PRN Reason: Protocol Stop: 06/09/18 05:59 Last Admin: 05/11/18 05:23 Dose: 50 mls Vancomycin/Sodium Chloride (Vancomycin 1 Gm (Premix)) 250 mls @ 250 mls/hr IV Q12H PADMINI Stop: 06/09/18 07:59 Last Admin: 05/10/18 08:41 Dose: 250 mls Miscellaneous Medication (Magnesium Oxide [Magnesium Oxide]) 250 mg PO DAILY PADMINI Stop: 11/06/18 08:59 Last Admin: 05/10/18 08:41 Dose: Not Given Ondansetron HCl (Zofran) 4 mg IVP EDNOW ONE Stop: 05/09/18 20:08 Last Admin: 05/09/18 20:26 Dose: 4 mg Departure - Departure Disposition: [facility] Acute Clinical Impression: Cellulitis of toe of right foot, Osteomyelitis right great toe Condition: Fair
[2018-05-09] MEDS ORDERED: NS 2,300 ML IV ONE (20:05)
[2018-05-09] MEDS ORDERED: ONDANSETRON 4 MG/2 ML VIAL IVP ONE (20:07)
[2018-05-09 20:09] LABS: PLATELET COUNT 336 10^3/uL (150-400)
[2018-05-09 20:20] LABS: INR 1.23 (0.83-1.16); PROTIME(PATIENT) 15.7 SEC (12.0-15.0)
[2018-05-09] MEDS ORDERED: HYDROCODONE/APAP 5/325 TAB PO PRN (20:43)
[2018-05-09] MEDS ORDERED: HYDROmorphONE/DILAUDID 1 MG/ML INJ IVP PRN (20:43)
[2018-05-09] MEDS ORDERED: ACETAMINOPHEN 325 MG TAB PO PRN ×2 (20:43→23:27)
[2018-05-09] MEDS: HEPARIN 5,000 UNIT/0.5 ML INJ SC SCH (22:48)
[2018-05-09] MEDS ORDERED: CYCLOBENZAPRINE 10 MG TAB PO PRN (23:27)
[2018-05-09] MEDS ORDERED: POLYETHYLENE GLYCOL 3350 17 GM PKT PO PRN (23:27)
[2018-05-09] MEDS: morphINE SR 30 MG TAB PO SCH (23:42)
[2018-05-09] MEDS: OXYCODONE/APAP 5/325 TAB PO SCH (23:42)
[2018-05-10] MEDS: NS 1,000 ML IV SCH (01:10)
--- NOTE | 2018-05-10 01:59 | GHP ---
[f rep st] HISTORY AND PHYSICAL DATE OF ADMISSION: 05/09/2018 CHIEF COMPLAINT: Right toe infection. HISTORY OF PRESENT ILLNESS: The patient is a 72-year-old female with a past medical history of SLE a nd prior right 2nd toe amputation for osteomyelitis, who presented to the [facility] Emergency Room via her dural mechanic's office after worsening right 1st toe infection. X-ray imaging in the emergency room showed evidence of possible pathologic fracture in the setting of osteomyelitis. Patient was started on empiric antibiotics and podiatry was consulted on her case. She has been fol lowed by Dr. Guadalupe in the outpatient setting. PAST MEDICAL HISTORY: Aortic stenosis, status post TAVR in May 2017. History of pulmonary embo lism in 2013, consider provoked SLE. Fibromyalgia, history of osteomyelitis. PAST SURGICAL HISTORY: Spine surgery, left elbow surgery, appendectomy, removal of 2 parathyroid gilda noma, transcatheter aortic valve replacement. MEDICATIONS: Fosamax 70 mg weekly, clonazepam 1 mg daily, Flexeril 100 mg nightly as needed, lisinop ril 20 mg nightly, magnesium oxide 250 mg daily, morphine SR 30 mg daily, oxycodone acetaminophen 5/3 25 one tablet every 6 hours as needed, MiraLAX 17 g daily, Klor-Con 20 mEq daily, prednisone 0.5 mg d aily, Lyrica 150 mg twice a day, Zoloft 25 mg daily, Coumadin 2 mg daily. ALLERGIES: Fentanyl, cephalexin. FAMILY HISTORY: Mother and father both . They had history of coronary artery disease and [place]. SOCIAL HISTORY: Patient is nonsmoker. She is currently . She has 1 daughter. She is a nons moker. REVIEW OF SYSTEMS: CONSTITUTIONAL: No complaints of any subjective fevers or chills. ENT: No rece nt upper respiratory illnesses. CARDIOVASCULAR: No complaints of any chest pains, palpitations, or syncopal episodes. RESPIRATORY: No complaints of shortness of breath or productive cough. GI: No nausea, vomiting, diarrhea, constipation. : No reports of any difficulty with urination. She bucio s report though that she was currently being treated for urinary tract infection. NEUROLOGIC: No co mplaints of any headaches or focal weakness. HEMATOLOGIC: Positive for pulmonary embolism, but nonr ecurrent. Consider provoked. PSYCHIATRIC: She is currently on SSRI therapy. ENDOCRINE: No histor y of polyuria or heat intolerance. SKIN: No new skin rashes other than on the toe of the right foot . MUSCULOSKELETAL: No focal joint pains or swelling. PHYSICAL EXAM: VITAL SIGNS: Temperature 36.9, blood pressure 100/66, heart rate 97, respirations 16 , saturating 94% on room air. GENERAL: Patient appears comfortable. She is awake, alert, conversan t, no acute distress. HEENT: Extraocular movements intact. No scleral icterus. NECK: Supple. No adenopathy appreciated. CHEST: Clear to auscultation with normal respiratory effort. HEART: Regu lar, no significant murmurs noted. ABDOMEN: Soft, nontender, nondistended. : No Gifford catheter in place. EXTREMITIES: No significant pitting edema. Right toe is freshly wrapped with Tyler wrap an d fresh gauze. NEUROLOGIC: Cranial nerves 2-12 appear grossly intact with 5/5 strength in extremiti es. LABS: White blood cell count 19, hemoglobin 13, platelets 336. Sodium 133, potassium 4.5, chloride 102, bicarb 24, BUN 18, creatinine 1.1, glucose 117, lactic acidosis 1.1. INR 1.2. ASSESSMENT AND PLAN: Right toe infection, concern for osteomyelitis. Podiatry has been consulted by the emergency room. We will await further recommendations and otherwise will cover with empiric ant ibiotics with vancomycin and Zosyn. Leukocytosis. Trend with current antibiotic therapy. Also check a CRP and sedimentation rate. Acute kidney injury versus chronic kidney disease, in review of patient's prior creatinine values the y appear to range between 1.0 and 1.4. She has 1.1 today. Monitor closely as using Zosyn and vancom ycin. Aortic stenosis, patient is status post transcatheter aortic valve replacement. Patient is currently anticoagulated. Trend INR values. History of pulmonary embolism. This was diagnosed in 2013 and considered provoked. Systemic lupus erythematosus, patient is on very low-dose prednisone currently. Deep venous thrombosis prophylaxis, patient is anticoagulated. DISPOSITION: Will admit under observation status for now pending further recommendations. /[id number]/MODL
[2018-05-10 05:49] LABS: INR 1.28 (0.83-1.16); PROTIME(PATIENT) 16.2 SEC (12.0-15.0)
[2018-05-10] MEDS: morphINE SR 30 MG TAB PO SCH ×3 (05:59→22:52)
[2018-05-10] MEDS: predniSONE 5 MG TAB PO SCH (05:59)
[2018-05-10] MEDS: PREGABALIN 150 MG CAP PO SCH ×2 (05:59→15:07)
[2018-05-10] MEDS: PIPERACILLIN/TAZO 3.375 GM/DEX 50 ML IV SCH ×3 (05:59→22:06)
[2018-05-10] MEDS: clonazePAM 1 MG TAB PO SCH (05:59)
[2018-05-10] MEDS: OXYCODONE/APAP 5/325 TAB PO SCH ×4 (06:00→22:52)
[2018-05-10] MEDS ORDERED: PREDNISONE PO SCH (06:00)
[2018-05-10] MEDS: HEPARIN 5,000 UNIT/0.5 ML INJ SC SCH ×3 (06:00→22:07)
[2018-05-10 06:27] LABS: PLATELET COUNT 300 10^3/uL (150-400)
[2018-05-10] MEDS ORDERED: VANCOMYCIN HCL/NORMAL SALINE 250 ML IV SCH (08:00)
[2018-05-10] MEDS: SERTRALINE HCL 25 MG TAB PO SCH (08:41)
--- NOTE | 2018-05-10 11:21 | PCMIDPN ---
Assessment/Plan: Spoke with , telecommunications network planner covering for for , who is back marketing communication manager tomorrow. Explained to her this situation. She will have him see her tomorrow morning. Explained plans for MRI this afternoon, and hopes for amputation tomorrow at some point. Objective: Vital Signs Temp Pulse Resp BP Pulse Ox 36.7 C 90 16 111/63 94 05/10/18 11:17 05/10/18 11:17 05/10/18 11:17 05/10/18 11:17 05/10/18 11:17 Laboratory Results 05/10/18 04:34 05/10/18 04:34 05/09/18 05/10/18 05/11/18 05:59 05:59 05:59 Intake Total 1000 Balance 1000 ICD10 Worksheet Patient Problems: Problems Problem Status Onset Cellulitis of toe of right foot Acute Cellulitis of foot Active Abscess of toe of right foot Acute Arthrodesis status Acute Chest pain Acute Lumbar radiculitis Acute Lumbar stenosis Acute Olecranon bursitis of left elbow Acute
--- NOTE | 2018-05-10 11:48 | GCON ---
[f rep st] CONSULTATION INFECTIOUS DISEASE CONSULT DATE OF CONSULTATION: 05/10/2018 REFERRING PHYSICIAN: Denzel Tran MD REASON FOR CONSULT: To assist in the management of this 72-year-old female with a right great toe infection. HISTORY OF PRESENT ILLNESS: Mrs Sanz is a 72-year-old female whose previous medical history is notable for the followin. Fibromyalgia. 2. Mixed connective tissue disease, on prednisone 2.5 mg daily. She is not taking biologics or other immunosuppressants. 3. History of Lyme disease 2015. 4. History of pulmonary embolism 2013. 5. History of septic left olecranon bursitis with osteomyelitis in 2012 secondary to MSSA. 6. History of osteomyelitis of the right 3rd toe 2011 secondary to MSSA, status post amputation of the toe. 7. Hypoparathyroidism. 8. Hypertension. 9. Depression. 10. History of aortic stenosis. Of note, the patient states that she remains on Bactrim 1 double-strength tablet a day "for life" as she was told by my colleague, Dr. Rosen. Also of note , the patient states she developed symptoms suggestive of a urinary tract infection this past Saturday and Saturday and was put on ciprofloxacin for 5 days by her primary care doctor, Dr. Genao. She states she just finished taking that medicine. A urinalysis from May 05, however, is pristine with a negative urine culture. PREVIOUS SURGICAL HISTORY: Rotator cuff surgery, parathyroidectomy 2011, lumbar surgery 2015, TAVR May 2017 at the [facility] without complications. Regarding her present issues, I was paged by Dr. Richard Guadalupe of Podiatry last evening at approximately 5:30 p.m., that he had redirected this patient to the emergency department for further evaluation and treatment of a right great toe infection. The patient tells me that she developed a crack or a fissure in her right great toe, lateral aspect, secondary to severe dry skin approximately 1 month ago. She states that the wound never healed, so she saw Dr. Richard Guadalupe for the first time on Saturday of this week. She states that he debrided the area, and it was not red or swollen. Several hours after the debridement, the patient states that she noticed some discomfort in the area, and then she states on , "blew up" with swelling, overlying skin erythema with purple discoloration, and drainage from the ulceration. She went to see Dr. Guadalupe on Saturday at 5 o'clock who redirected her to the emergency room as per the above. In the emergency room, she had an x-ray of the toe that showed an acute fracture seen on the lateral view of the base of the distal phalanx of the great toe. Adjacent to the fracture, there was evidence of cortical irregularity and some erosive changes concerning for osteomyelitis. Blood cultures were obtained, and a swab of the drainage from the ulcer was also obtained. Gram stain is showing 3+ PMNs and 3+ gram- positive cocci. She was started on vancomycin, and I am now asked to assist in her management. In speaking with the patient today, she states that she usually walks around barefoot at home. She has had no water exposure other than her shower and bath tub. She does have dogs at home, but they have not licked, scratched, or bitten her toe. She reiterates that the wound in her right great toe started as a crack secondary to extremely dry skin. She does have peripheral neuropathy but does have some residual feeling in her feet and says that her toe is painful. She denies any fevers, shaking chills, nausea, vomiting, diarrhea, or other. REVIEW OF SYSTEMS: Aside from what is listed above, 10 systems reviewed and all are negative. PREVIOUS MEDICAL HISTORY: As outlined above. MEDICATIONS: Presently include Vancomycin 1 g IV q.12 hours and Zosyn 3.375 g IV q.8 hours, prednisone 2.5 mg daily, Flexeril, Klonopin, [place]. ALLERGIES: Cephalosporins cause rash and arthralgias. Clindamycin causes diarrhea. Iodinated contrast causes anaphylaxis. Fentanyl causes hives. SOCIAL HISTORY: The patient lives in [place] with her and 3 dogs. 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 No tobacco, alcohol, or illicit substances. No water exposure or other unusual exposures. She does walk around barefoot but has not been outside in her yard or dirt or other. She did receive a flu vaccine this year but cannot recall her last Tdap. No other unusual exposures. No recent travel. FAMILY HISTORY: Mother and father are . History of coronary artery disease. PHYSICAL EXAMINATION: VITAL SIGNS: T-current is 36.5. T-max is 36.6. Heart rate is 89, blood pressure 92/54, 90% on room air. GENERAL: Appears younger than stated age, in bed, no apparent distress. Nontoxic. Does appear slightly cushingoid with vences facies. Wearing glasses. HEENT: Atraumatic, normocephalic. Pupils equal, round, react to light. Extraocular movements intact. No conjunctival injection, icterus or petechiae. No sinus process tenderness or discharge from the nares. Mucous membranes are moist. No oral lesions noted. Dentition in fair repair. No thyromegaly or palpable thyroid nodules. No supraclavicular or cervical lymphadenopathy. CARDIOVASCULAR: S1, S2. 1 to 2/6 systolic ejection murmur heard best at the right and left upper sternal borders. LUNGS: Clear to auscultation anterolateral with no rales, rhonchi, or wheeze. ABDOMEN: Soft. No organomegaly or tenderness to palpation. EXTREMITIES: Her right great toe is a sausage digit and is quite swollen with a purplish/erythematous discoloration. On the lateral aspect of the toe, there is an open ulceration that is not actively draining for me. There is some surrounding skin sloughing. She does have some tenderness of the whole toe. There is erythema that extends slightly up the dorsum of her foot consistent with cellulitis. She is missing her right 3rd toe. Her left great toe is not swollen but has some dry skin noted with cracking. Otherwise her extremities are unremarkable. SKIN: Warm and dry. No other rashes. NEUROLOGIC: She is alert and oriented x3. LABORATORY DATA: Microbiologic data: Blood cultures x2 are pending. Patient has history of MSSA from previous infections as outlined in the HPI. No history of MRSA. Gram stain: 3+ PMNs, 3+ gram-positive cocci. Cultures pending from the toe. White blood cell count of 11.9, down from 19 last night, hematocrit 36.8, platelet count of 300, 63% neutrophils. BUN and creatinine are 14/0.8. No liver function tests were obtained. No inflammatory markers were obtained. RADIOGRAPHIC DATA: As outlined above. IMPRESSION: 72-year-old female with right great toe infection, with plain film concerning for underlying osteomyelitis. Given patient's prior history and present Gram stain, suspect methicillin-sensitive Staphylococcus aureus is the likely culprit. The patient is not diabetic; suspect a mixed infection is less likely. PLAN: 1. Continue vancomycin as is given previous intolerance to cephalosporins and beta lactams as outlined previously by my colleague, Dr. Rosen. 2. Discontinue Zosyn. 3. MRI of the right great toe will be obtained today; strongly suspect she will need amputation of the great toe moving forward. I feel that this would likely be the best approach, particularly with an artificial valve in place. 4. Blood cultures are pending. 5. Obtain inflammatory markers. 6. I have left a message with the inspector and sorter honest john rocket crew member, Dr. Reggie Morocho, outlining the request for a consult. If I do not hear back, we will consult General Surgery. 7. The patient will need a Tdap prior to discharge. Thank you very much for consulting Infectious Disease. We will continue to follow this patient with you. /[id number]/MODL MTDD
[2018-05-10] MEDS: POTASSIUM CL 20 MEQ TAB PO SCH (12:43)
--- NOTE | 2018-05-10 14:07 | HOSPPROG ---
Hospitalist Progress Note Assessment/Plan: 72y female with c/o right great toe infection. First encounter, chart reviewed. D/W Dr Molina. #Right toe infection -MRI -cont IV vanco -likely surgery in am #Leukocytosis -improved on setting of infection #Hx PE -on coumadin -subtherapeutic #CKD -cont to follow #Aortic stenosis with hx valve -stable #Lupus -cont prednisone #Dispo -unclear -needs MRI -likely surgical intervention of toe -IV abx Subjective: Feels well. No pain. In bed. No specific issues. Objective: Vital Signs Temp Pulse Resp BP Pulse Ox 36.7 C 90 16 111/63 94 05/10/18 11:17 05/10/18 11:17 05/10/18 11:17 05/10/18 11:17 05/10/18 11:17 Laboratory Results 05/10/18 04:34 05/10/18 04:34 05/09/18 05/10/18 05/11/18 05:59 05:59 05:59 Intake Total 1000 Balance 1000 PT 16.2 SEC (12.0-15.0) H 05/10/18 04:34 INR 1.28 (0.83-1.16) H 05/10/18 04:34 - Physical Exam Constitutional: no apparent distress, appears nourished, not in pain Eyes: PERRL, anicteric sclera, EOMI Ears, Nose, Mouth, Throat: moist mucous membranes, hearing normal, ears appear normal Cardiovascular: irregularly irregular, No JVD, No edema Respiratory: no respiratory distress, no rales or rhonchi, reduced air movement Gastrointestinal: normoactive bowel sounds, No tenderness, No ascites Skin: warm, erythema, induration, No mottled Musculoskeletal: normal joint ROM, no joint effusions, generalized weakness Neurologic: AAOx3 Psychiatric: interacting appropriately, not anxious, not encephalopathic ICD10 Worksheet Patient Problems: Problems Problem Status Onset Cellulitis of foot Active Olecranon bursitis of left elbow Acute Lumbar radiculitis Acute Lumbar stenosis Acute Arthrodesis status Acute Abscess of toe of right foot Acute Cellulitis of toe of right foot Acute Chest pain Acute
--- NOTE | 2018-05-10 14:49 | ASMTCMCOM ---
CM Note CM Note Notes: Pt admitted for right greater toe fracture and infection, most likely needing amputation. Pt has a history of osteomyelitis and prior right 3rd toe amputation. MRI to be completed today. Podiatry to see pt tomorrow morning and possible amputate toe tomorrow. ID consulted. Pt lives with her Aid. Pt has a history of SLE, PE, aortic stenosis (TAVR in 05/2017), fibromyalgia. Exact DC needs TBD. PT and Wound care orders placed. CM to follow. Date Signed: 05/10/2018 02:49 PM Electronically Signed By:Antonette Potts RN
--- NOTE | 2018-05-10 16:07 | PDMN ---
Medical Necessity Medical necessity: [facility] Wound and Sin Management GR yo w/ R great toe infection. Initially OBS for workup/tx but pt requires additional MN for ongoing IV vanco, ID consult, likely surgery to amputate toe in am. BC pending. Remains on IVF. Hx TAVR last year, PE, osteomyelitis, fibromyalgia. Change to IP status 05/10/18@1403 per [facility] order.
[2018-05-10] MEDS: WARFARIN SODIUM 2 MG TAB PO SCH (16:15)
--- NOTE | 2018-05-10 18:31 | PDCONSULT ---
Histology Specialist Note: Podiatric Surgery Consult Date of Consultation 05/10/18 Reason for Consult: Infection right great toe requiring surgical intervention HPI: 72/F with 4 week history of wound in right great toe. She saw her older adult social work specialist yesterday who identified an infection and instructed her to go to the emergency department. She presented with elevated WBC and cellulitis to the right great toe. Today she denies N,V,F,C,SOB. Patient seen at bedside, AA&O x 3 in no acute distress. Bandage intact to the right foot. There is a full thickness wound to the right great toe measuring approximately 5mm x 5mm x 5mm. There is edema, erythema, and increased warmth to the right great toe not extending beyond the 1st MPJ. No proximal streaking , no soft tissue crepitation noted. Pedal pulses RLE palpable +2/4 to the DP and PT arteries. CFT <3 seconds to all digits. Epicritic sensation diminished to the right foot. Full strength of all RLE muscle groups. Temp Pulse Resp BP Pulse Ox 36.7 C 89 12 107/57 L 94 05/10/18 15:44 05/10/18 15:44 05/10/18 15:44 05/10/18 15:44 05/10/18 15:44 05/10/18 04:34 05/10/18 04:34 Total Bilirubin 0.7 mg/dL (0.1-1.4) 05/09/18 19:55 Xray right foot: Fracture of the distal phalanx great toe underlying the soft tissue wound. MRI right foot: Bone marrow edema of the 1st distal phalanx consistent with acute osteomyelitis. Assessment/Plan: 1) Cellulitis right foot- Cont IV vanco per ID 2) Osteomyelitis distal phalanx 1st digit right foot - partial amputation of right great toe in AM on 05/11/18. NPO after midnight. Appreciate medical clearance for surgery under IV sedation (MAC anesthesia). 3) Wound great toe right foot - Continue local wound care. Thank you for consulting Podiatry. I will continue to follow. Please contact me with questions/concerns. Reggie Morocho, TOÑA 0
[2018-05-10] MEDS: LISINOPRIL 20 MG TAB PO SCH (21:00)
[2018-05-10] MEDS: VANCOMYCIN HCL/NORMAL SALINE 250 ML IV SCH (21:00)
[2018-05-11] MEDS: clonazePAM 1 MG TAB PO SCH (05:23)
[2018-05-11] MEDS: predniSONE 5 MG TAB PO SCH (05:23)
[2018-05-11] MEDS: OXYCODONE/APAP 5/325 TAB PO SCH ×4 (05:23→22:34)
[2018-05-11] MEDS: PIPERACILLIN/TAZO 3.375 GM/DEX 50 ML IV SCH (05:23)
[2018-05-11] MEDS: PREGABALIN 150 MG CAP PO SCH ×2 (05:23→15:21)
[2018-05-11] MEDS: HEPARIN 5,000 UNIT/0.5 ML INJ SC SCH ×3 (05:24→21:13)
[2018-05-11] MEDS: morphINE SR 30 MG TAB PO SCH ×3 (05:24→22:34)
[2018-05-11 06:07] LABS: PLATELET COUNT 298 10^3/uL (150-400)
[2018-05-11 06:18] LABS: INR 1.07 (0.83-1.16); PROTIME(PATIENT) 14.1 SEC (12.0-15.0)
[2018-05-11] MEDS: MAGNESIUM OXIDE PO SCH (08:35)
[2018-05-11] MEDS: SERTRALINE HCL 25 MG TAB PO SCH (08:35)
[2018-05-11] MEDS: VANCOMYCIN HCL/NORMAL SALINE 250 ML IV SCH ×2 (08:46→23:47)
--- NOTE | 2018-05-11 08:47 | PCMIDPN ---
Assessment/Plan: 1. Streptococcal bacteremia secondary to right great toe osteomyelitis: I am really hoping she has not seeded her prosthetic aortic valve. Of note, patient states she had an echocardiogram this past Saturday, and no one has notified her of an abnormality.(she has not been called by Cardiology or her cardiothoracic surgeon) Will repeat surface echocardiogram this morning; blood cultures will also be repeated after surgery tomorrow. If they remain positive , will need a AALIYAH. Continue vancomycin; trough is fine. Patient will have surgery this morning to amputate her right great toe and remove source of infection. 05/11/18 08:42 Subjective: Blood cultures came up positive this morning with gram-positive cocci in clusters. BCID a Streptococcus, not group a, group B, or pneumococcus. Patient feels fine this morning. Blood pressures were initially read as low, but repeated at 120/72. She denies any shaking chills, chest pain, or other. No diarrhea. Objective: Vancomycin 1 g IV q.12 hours day 2 No fevers Vital Signs Temp Pulse Resp BP Pulse Ox 36.4 C 90 18 120/72 95 05/11/18 07:55 05/11/18 08:27 05/11/18 08:27 05/11/18 08:27 05/11/18 08:27 Laboratory Results 05/11/18 04:35 05/11/18 04:35 05/10/18 05/11/18 05/12/18 05:59 05:59 05:59 Intake Total 350 Balance 350 ESR 45 MM/HR (0-30) H 05/10/18 04:34 C-Reactive Protein 149.5 mg/L (<10.0) H 05/10/18 04:34 Blood cultures May 09 are growing gram-positive cocci in chains, identified as a Streptococcus not group a, B, or pneumococcus Toe swab: 3+ Gram-positive cocci, culture with "mixed tory." - Physical Exam General Appearance: alert, no apparent distress Respiratory: lungs clear Cardiac/Chest: systolic murmur (Right and left upper sternal border, unchanged S1-S2 no S3) Abdomen: non-tender, soft Skin: other (Right great toe: Swelling is improved as is erythema. No drainage from the open wound lateral aspect of right toe. Cellulitis on foot dorsum at base of right great toe has also improved), No embolic lesions ICD10 Worksheet Patient Problems: Problems Problem Status Onset Cellulitis of toe of right foot Acute Cellulitis of foot Active Abscess of toe of right foot Acute Arthrodesis status Acute Chest pain Acute Lumbar radiculitis Acute Lumbar stenosis Acute Olecranon bursitis of left elbow Acute
[2018-05-11] MEDS ORDERED: fentaNYL 100 MCG/2 ML INJ ONE (11:44)
--- NOTE | 2018-05-11 11:54 | HOSPPROG ---
Hospitalist Progress Note Assessment/Plan: 72y female with c/o right great toe infection. D/W Dr Molina. #Right toe infection -MRI, fx and likely osteo -cont IV vanco -surgery today #Leukocytosis -improved on setting of infection #Hx PE -on coumadin -subtherapeutic #CKD -cont to follow #Aortic stenosis with hx valve -stable -ECHO today #Lupus -cont prednisone #Dispo -unclear -surgical intervention of toe -IV abx Subjective: Feeling ok. No pain currently. Objective: Vital Signs Temp Pulse Resp BP Pulse Ox 36.4 C 90 18 120/72 95 05/11/18 10:22 05/11/18 10:22 05/11/18 10:22 05/11/18 10:22 05/11/18 10:22 Laboratory Results 05/11/18 04:35 05/11/18 04:35 05/10/18 05/11/18 05/12/18 05:59 05:59 05:59 Intake Total 350 Output Total 1 Balance 350 -1 PT 14.1 SEC (12.0-15.0) 05/11/18 04:35 INR 1.07 (0.83-1.16) 05/11/18 04:35 - Physical Exam Constitutional: chronically ill appearing, obese Eyes: PERRL, anicteric sclera Ears, Nose, Mouth, Throat: moist mucous membranes, hearing normal Cardiovascular: No JVD, No edema Respiratory: no respiratory distress, reduced air movement Gastrointestinal: No tenderness, No ascites Skin: warm, normal color Musculoskeletal: joint tenderness, pain with ROM, generalized weakness Neurologic: AAOx3 Psychiatric: interacting appropriately, not anxious, not encephalopathic ICD10 Worksheet Patient Problems: Problems Problem Status Onset Cellulitis of foot Active Olecranon bursitis of left elbow Acute Lumbar radiculitis Acute Lumbar stenosis Acute Arthrodesis status Acute Abscess of toe of right foot Acute Cellulitis of toe of right foot Acute Chest pain Acute
[2018-05-11] MEDS ORDERED: fentaNYL 100 MCG/2 ML INJ IVP PRN ×2 (12:00→13:13)
[2018-05-11] MEDS ORDERED: PROPOFOL/EMULSION 500 MG/50 ML BOTTLE IV ONE (12:29)
[2018-05-11] MEDS ORDERED: fentaNYL 250 MCG/5 ML INJ ONE (12:29)
[2018-05-11] MEDS: POTASSIUM CL 20 MEQ TAB PO SCH (12:30)
[2018-05-11] MEDS ORDERED: BUPIVACAINE 0.5% 30 ML SDV ONE ×2 (12:32→12:48)
[2018-05-11] MEDS ORDERED: MIDAZOLAM 2 MG/2 ML VIAL ONE (12:38)
--- NOTE | 2018-05-11 12:56 | ECHO ---
[email or web address] [address] [address] Main: [phone] Fax: Transthoracic Echocardiogram Name: Shiv SANDHU MR#: [id number] Study Date: 05/11/2018 Study Time: 09:15 AM Date of : 1945 Age: 72 year(s) Height: 165.1 cm (65 in.) Weight: 81.19 kg (179 lb.) BSA: 1.89 m2 Gender: Female Examination: Echo Indication: hx TAVR/great toe infection/now bacteremic/r/o endocarditis Image Quality: Excellent Contrast: Requested by: Jamaica Molina BP: 120 mmHg/72 mmHg Heart Rate: Rhythm: Indication: hx TAVR/great toe infection/now bacteremic/r/o endocarditis Procedure Staff Fruit Room Hand: Magda Tubbs [facility] Reading Physician: Kylie Fajardo MD Requesting Provider: [place] Molina Conclusions: Normal size left ventricle. No LV hypertrophy. Normal global systolic LV function. The ejection fraction is estimated to be 65-70 %. No regional wall motion abnormality. Grade 2 diastolic dysfunction (pseudonormalized LV filling pattern). Elevated left ventricular filling pressures.. Normal size right ventricle. Normal RV function. The left atirum is borderline dilated. Mild to moderate mitral regurgitation. There is no aortic valve regurgitation. No aortic valve stenosis is present. AV Core valve in place. AV max PG is 21mmHG. AV mean PG is 11mmHG.. Moderate tricuspid regurgitation is present. The pulmonary artery pressure is normal. No pericardial effusion. No obvious valvular vegetation. If high clinical suspicion for endocarditis consider AALIYAH. Overall similar findings compared with 05/18/2017. Measurements: Chambers Valvular Assessment AV/MV Valvular Assessment TV/PV Normal Normal Normal Name Value Range Name Value Range Name Value Range IVSd (2D): 0.7 cm (0.6 cm-1.1 AV Vmax: 2.31 m/s (1 m/s-1.7 TR Vmax: 2.58 mm/s ( - ) cm) m/s) TR PGmax: 27 mmHg ( - ) LVDd (2D): 4.2 cm (3.9 cm-5.3 AV meanP mmHg ( - ) syst. PAP: 32 mmHg ( - ) cm) CAL (VTI): 1.2 cm ( - ) MV E Vmax: 1.47 m/s ( - ) Patient: Shiv SANDHU Study Date: 05/11/2018 Page 1 of 2 09:15 AM LVDs (2D): 2.2 cm (2.1 cm-4 MV A Vmax: 1.22 m/s ( - ) cm) MV E/A: 1.20 ( - ) LVPWd (2D): 0.9 cm ( - ) LVOTd 1.9 cm 1.9 cm mm LVEF (BP): 71 % (>=55 %) EF Range: 65-70 % Continued Measurements: Chambers Valvular Assessment AV/MV Valvular Assessment TV/PV Name Value Name Value Name Value LADs: 4.1 cm MV E' Septal: 0.08 m/s CVP (est.): 5 mmHg LADs Lon.3 cm MV E/E' Septal: 19.60 LA Area: 19.2 cm2 MV E/E' Lateral: 18.60 MR Vena Contracta: 0.3 cm Additional Vessels Name Value Ao Ascendin.4 cm Findings: Left Ventricle: Normal size left ventricle. No LV hypertrophy. Normal global systolic LV function. The ejection fraction is estimated to be 65-70 %. No regional wall motion abnormality. Grade 2 diastolic dysfunction (pseudonormalized LV filling pattern). Elevated left ventricular filling pressures.. Right Ventricle: Normal size right ventricle. Normal RV function. Left Atrium: The left atirum is borderline dilated. Right Atrium: The right atrium is normal in size. Mitral Valve: Mild mitral annular calcification. Mild to moderate mitral regurgitation. Aortic Valve: There is no aortic valve regurgitation. No aortic valve stenosis is present. AV Core valve in place. AV max PG is 21mmHG. AV mean PG is 11mmHG.. Tricuspid Valve: The tricuspid valve is normal in appearance and function. Moderate tricuspid regurgitation is present. The pulmonary artery pressure is normal. Pulmonic Valve: The pulmonic valve is normal in appearance and function. Aorta: The aorta is normal. Pericardium: No pericardial effusion. (No Signature Object) Patient: Shiv SANDHU Study Date: 05/11/2018 Page 2 of 2 09:15 AM [id number]
[2018-05-11] MEDS ORDERED: LR 500 ML IV PRN (13:13)
[2018-05-11] MEDS ORDERED: DEXAMETHASONE 4 MG/ML VIAL IVP PRN (13:13)
[2018-05-11] MEDS ORDERED: NALOXONE HCL 0.4 MG/ML INJ IVP PRN (13:13)
[2018-05-11] MEDS ORDERED: PHENYLEPHRINE HCL 100 MCG/ML SYR IVP PRN (13:13)
--- NOTE | 2018-05-11 13:13 | PDANEPAE ---
ANE History of Present Illness 72 y/o female with osteomyelitis of right great toe for amputation. S/P TAVR. Echo shows no vegetations. Blood cultures positive. ANE Past Medical History - Cardiovascular History Hx Hypertension: Yes Hx Arrhythmias: No Hx Chest Pain: Yes Hx Coronary Artery / Peripheral Vascular Disease: No Hx CHF / Valvular Disease: No Hx Palpitations: No Cardiovascular History Comment: MURMUR. CHEST PAIN IN STERNUM - Pulmonary History Hx COPD: No Hx Asthma/Reactive Airway Disease: No Hx Recent Upper Respiratory Infection: No Hx Oxygen in Use at Home: No Hx Sleep Apnea: No Sleep Apnea Screening Result - Last Documented: Negative Pulmonary History Comment: L LUNG EMBOLISM REASON FOR WARFARIN - Neurologic History Hx Cerebrovascular Accident: No Hx Seizures: No Hx Dementia: No - Endocrine History Hx Diabetes: No - Renal History Hx Renal Disorders: Yes Renal History Comment: INCONTINENCE - Liver History Hx Hepatic Disorders: No - Neurological & Psychiatric Hx Hx Neurological and Psychiatric Disorders: Yes Neurological / Psychiatric History Comment: FIBROMYALGIA. OCCASIONAL DEPRESSION - Cancer History Hx Cancer: No - Congenital Disorder History Hx Congenital Disorders: No - GI History Hx Gastrointestinal Disorders: No Gastrointestinal History Comment: OCCASIONAL CONSTIPATION - Other Health History Other Health History: LUPUS. CARBUNCLES ALL OVER. VISION LOSS WITH MIGRAINE. EASY BRUISES FROM WARFARIN - Chronic Pain History Chronic Pain: Yes (LUMBAR REGION/GENERALIZED RELATED TO FIBROMYALGIA) - Surgical History Prior Surgeries: 2 PARATHYROIDECTOMIES. L HUMERUS AND PART OF MUSCLE REMOVED. FX R 2ND TOE. LAMINECTOMY ON L4L5. R ROTATOR CUFF SURGERY X 2. FATTY TUMOR REMOVAL ANE Review of Systems Review of systems is: negative Review of Systems: ANE Patient History - Allergies Allergies/Adverse Reactions: fentanyl [Fentanyl] Allergy (Intermediate, Verified 05/09/18 19:06) Hives cephalexin monohydrate [From Keflex] Allergy (Verified 05/09/18 19:06) Other-Enter Comments Iodine and Iodide Containing Produc Allergy (Verified 05/09/18 19:06) Penicillins Allergy (Verified 05/09/18 19:06) Other-Enter Comments BEE STINGS Allergy (Severe, Uncoded 05/09/18 19:06) Anaphylaxis - Home Medications Home Medications: Alendronate Sodium [Fosamax 70 MG (*)] 70 mg PO WE@0700 04/16/14 [Last Taken 09/17] EPINEPHrine [Epipen 0.3 MG] 0.3 mg IM ONCE PRN 04/16/14 [Last Taken Unknown] Lisinopril [Zestril 20 mg (*)] 20 mg PO HS 04/16/14 [Last Taken 05/08/18] Multivitamins [Multivitamin (*)] 1 each PO DAILY@05 04/16/14 [Last Taken ] SUMAtriptan [Imitrex 50 MG (*)] 25 - 50 mg PO Q2H PRN 04/16/14 [Last Taken 05/14] clonazePAM [klonoPIN (*)] 1 mg PO DAILY06 04/16/14 [Last Taken 05/09/18] Herbals/Supplements -Info Only 1 ea PO DAILY 03/19/16 [Last Taken 05/09/18] Potassium Cl [Klor-Con 20 meq (*)] 20 meq PO DAILY@1230 03/19/16 [Last Taken 11/17] morphINE SR [MS Contin/Oramorph SR 30 mg (*)] 30 mg PO DAILY@0500,1230,2330 [Last Taken 05/09/18 12:30] Sulfamethox/Tmp 800/160 mg [Bactrim DS] 1 tab PO DAILY 05/08/16 [Last Taken 11/17] Acet/Caffeine/Buta Fioricet [Fioricet (*)] 1 each PO Q6 PRN 05/11/16 [Last Taken 04/25/18] [place]-3 Fatty Acids/Fish Oil [[place] 3 1,000 mg Softgel] 1 each PO DAILY@18 05/11 [Last Taken 05/09/18] Cyclobenzaprine [Flexeril 10 MG (*)] 10 mg PO HS PRN 05/17/17 [Last Taken ] Magnesium Oxide 300 mg PO DAILY 05/17/17 [Last Taken 05/09/18] Pregabalin [Lyrica 150mg (*)] 150 mg PO BID@06,15 05/17/17 [Last Taken 05/09/18 15:00] Sertraline HCl [Zoloft 25mg (*)] 25 mg PO DAILY 05/17/17 [Last Taken 05/09/18] oxyCODONE/APAP 5/325 [Percocet 5/325 (*)] 1 tab PO Q6H 05/17/17 [Last Taken 11/17 18:00] Ciprofloxacin [Cipro] 250 mg PO BID@1000,2000 05/09/18 [Last Taken 05/09/18 08: 00] Ibuprofen [Motrin (*)] 600 mg PO Q6 PRN 05/09/18 [Last Taken 05/09/18] Polyethylene Glycol 3350 [Miralax 17 gm (*)] 17 gm PO DAILY PRN 05/09/18 [Last Taken Unknown] Warfarin Sodium [Coumadin 2MG (*)] 2 mg PO DAILY16 05/09/18 [Last Taken 05/09/18 ] predniSONE 2.5 mg PO DAILY06 05/09/18 [Last Taken Unknown] - NPO status NPO Since - Liquids (Date): 05/10/18 NPO Since - Liquids (Time): 00:01 NPO Since - Solids (Date): 05/10/18 NPO Since - Solids (Time): 00:01 - Smoking Hx Smoking Status: Never smoked - Alcohol Use Alcohol Use: None - Family Anes Hx Family Hx Anesthesia Complications: NEG ANE Labs/Vital Signs - Labs Result Diagrams: 05/11/18 04:35 05/11/18 04:35 - Vital Signs Blood Pressure: 120/72 Heart Rate: 90 Respiratory Rate: 18 O2 Sat (%): 95 Height: 165.1 cm Weight: 81.5 kg ANE Physical Exam - Airway Neck exam: FROM Mallampati Score: Class 2 Mouth exam: normal dental/mouth exam - Pulmonary Pulmonary: no respiratory distress - Cardiovascular Cardiovascular: regular rate and rhythym - ASA Status ASA Status: III ANE Anesthesia Plan Anesthesia Plan: MAC (History of Chronic pain with use of Morphine 90 mg/day and hydrocodone 20 mg. Anticipate increased requirement for pain medication.)
--- NOTE | 2018-05-11 13:41 | SUROPNOTE ---
[facility] Operative Report - Surgery Podiatric Surgery Operative Surgeon: Bailee Asst:none Pre-op dx: Osteomyelitis right great toe Post-op Dx: Same as above Procedure: Amputation right great toe Anesthesia: MAC with local Hemostasis: RPAT 250mmhg 15 min EBL: 0ml Materials: 3-0 vicryl plus and nylon Injectibles: None Condition: Stable Gross fidings: Consistent with dx. Indication for procedure: Osteomyelitis right great toe confirmed on MRI. Patient is bacteremic and right foot is identified as nidus of infection. Procedure: After identification patient was brought into the operating room and placed on the table in the supine position. After IV sedation, right foot block performed with 20 ml 0.5% marcaine plain. Foot was scrubbed, prepped, draped in the usual aseptic manner. Esmark bandage used to exsanguinate the right foot and tourniquet inflated. Attn directed to right foot where 2 converging semi-elliptical incisions made around the base of great toe. Incision continued full thickness to the 1st MPJ which was disarticulated. Bleeders ligated and cauterized as needed. Right great toe removed in toto and passed fro the operative field. a portion of both the proximal and distal phalanx sent for culture. Great toe sent to pathology. Incision flushed with copious amounts of normal sterile saline solution. Soft tissue flap reapproximated using 3-0 vicryl and skin reapproximated using 3-0 nylon. Incision dressed with adaptec, 4x4s, webril, katie. Patient transferred to PACU with vital signs stable and vascular status intact to the right foot. Pt tolerated procedure and anesthesia well. Keep bandage C,D,I. Reinforce bandage right foot PRN. I will continue to follow. Reggie Morocho DPM
--- NOTE | 2018-05-11 14:33 | POSTANESTH ---
Post Anesthetic Evaluation Cardiovascular Status: Normal, Stable Respiratory Status: Normal, Stable Level of Consciousness/Mental Status: Can Participate in Eval Pain Control: Adequate, Prn Tx Ordered Nausea/Vomiting Control: Adequate, Prn Tx Ordered Complications Possibly Related to Anesthesia: None Noted
[2018-05-11] MEDS: WARFARIN SODIUM 2 MG TAB PO SCH (15:21)
[2018-05-11] MEDS: LISINOPRIL 20 MG TAB PO SCH (21:13)
[2018-05-12] MEDS: NS 1,000 ML IV SCH (03:41)
[2018-05-12] MEDS: predniSONE 5 MG TAB PO SCH (05:11)
[2018-05-12] MEDS: PREGABALIN 150 MG CAP PO SCH ×2 (05:11→14:48)
[2018-05-12] MEDS: OXYCODONE/APAP 5/325 TAB PO SCH ×4 (05:11→22:58)
[2018-05-12] MEDS: morphINE SR 30 MG TAB PO SCH ×3 (05:12→22:58)
[2018-05-12] MEDS: clonazePAM 1 MG TAB PO SCH (05:12)
[2018-05-12] MEDS: HEPARIN 5,000 UNIT/0.5 ML INJ SC SCH ×3 (05:13→21:11)
[2018-05-12 05:15] LABS: PLATELET COUNT 289 10^3/uL (150-400)
[2018-05-12 05:24] LABS: INR 1.06 (0.83-1.16)
[2018-05-12] MEDS: MAGNESIUM OXIDE PO SCH (08:21)
[2018-05-12] MEDS: SERTRALINE HCL 25 MG TAB PO SCH (08:21)
[2018-05-12] MEDS: VANCOMYCIN HCL/NORMAL SALINE 250 ML IV SCH ×2 (08:21→21:11)
--- NOTE | 2018-05-12 09:51 | ASMTCMCOM ---
CM Note CM Note Notes: Pts case discussed w/ Vero Mcadams, CATEGORY DIRECTOR and Ellen, physical therapist. Ellen reports that pt can d/c home without any needs. It is uncertain if pt will need ivabx at time of d/c. CM available for dc needs. Date Signed: 05/12/2018 09:51 AM Electronically Signed By:ALEXEI Hemphill
--- NOTE | 2018-05-12 11:53 | PDCONSULT ---
Rigger Supervisor Note: Podiatric Surgery Patient seen at bedside 1 day s/p 1st toe amputation right foot. Patient is doing well, has no pain, no concerns. 05/12/18 04:20 05/12/18 04:20 Total Bilirubin 0.4 mg/dL (0.1-1.4) 05/11/18 04:35 AST 41 IU/L (14-46) 05/11/18 04:35 ALT 53 IU/L (9-52) H 05/11/18 04:35 Patient is AA&O x 3, in no acute distress. Incision to the right foot is well approximated with sutures intact. Edema and erythema are mild, consistent with the post procedure timeframe and procedure performed. No increase in erythema or proximal streaking noted. No increased warmth to the foot. Pedal pulses palpable +2/4. CFT < 3 seconds to all remaining digits. xray right foot 05/11/18 - Resection of hallux noted. Assessment/Plan: 1) Osteomyelitis right foot - She is now s/p surgical resection of the entire great toe. -FWB in surgical shoe -Replace dry sterile bandage with adaptec, 4x4, kerlix if removed. 2) Cellulitis right foot - resolving. Cont ABx per ID Dispo: OK to D/C per podiatric surgery when medically stable. I will continue to follow her.
[2018-05-12] MEDS: POTASSIUM CL 20 MEQ TAB PO SCH (12:32)
--- NOTE | 2018-05-12 13:16 | PCMIDPN ---
Assessment/Plan: Assessment: 72-year-old woman with streptococcal bloodstream infection complicating aortic valve repair with a TAVR. This is a community onset Gram- positive bacteremia which raises the specter of endocarditis, with negative transthoracic echocardiogram in reportedly normal echocardiogram the week before admission as an outpatient. If no persistent bacteremia on repeat blood cultures stay decreases the likelihood that she does have prosthetic valve endocarditis and could be treated with a shorter course of therapy. She does have a history of adverse reactions to beta lactams justifying the use of vancomycin in this setting. Likely source lead infection was the right great toe which was resected on 05/11/2018. 1. Streptococcal bloodstream infection, species identification pending 2. Right great toe cellulitis with probable osteomyelitis, status post right great toe resection 05/19/2018 3. History of aortic valve replacement with TAVR, 05/19/2017 4. History recurrent septic bursitis, suppressive therapy with Bactrim 5. History of mixed connective tissue disease, continues to take prednisone 2.5 mg daily 6. History of pulmonary embolism in 2013 7. History of MSSA infection Plan: 1. Continue vancomycin 1 g twice daily; goal trough 10-15 2. Follow-up blood culture results from this morning 3. Discussed in detail potential side effects of vancomycin which include rash, antibiotic associated diarrhea, C diff colitis Darrin Ivey MD Infectious Diseases 05/12/18 13:22 Subjective: No fever or chills. Denies diarrhea, nausea, rash. Appetite improving. Ambulating without difficulty. Still feels generally fatigued beyond her usual baseline. Objective: Vital Signs Temp Pulse Resp BP Pulse Ox 36.7 C 87 16 123/72 H 91 L 05/12/18 12:00 05/12/18 12:00 05/12/18 12:00 05/12/18 12:00 05/12/18 12:00 Microbiology 05/11/18 13:06 Gram Stain - Final Toe - Tissue 05/11/18 13:06 Gram Stain - Final Toe - Tissue Laboratory Results 05/12/18 04:20 05/12/18 04:20 05/11/18 05/12/18 05/13/18 05:59 05:59 05:59 Intake Total 350 870 Output Total 753 Balance 350 117 ESR 45 MM/HR (0-30) H 05/10/18 04:34 C-Reactive Protein 149.5 mg/L (<10.0) H 05/10/18 04:34 Microbiology 05/09/18 19:55 Blood Blood Panel (PCR) - Final Streptococcus 05/09/18 19:55 Blood Blood Culture - Preliminary Alpha Strep Not Pneumoniae 05/09/18 19:55 Blood Blood Culture - Preliminary 05/09/18 19:55 Blood Alpha Strep Not Pneumoniae Laboratory Tests 05/10/18 05/10/18 05/11/18 04:34 04:34 04:35 WBC 11.92 H 8.94 Hgb 11.3 L 11.1 L Plt Count 300 298 Absolute Neuts (auto) 7.58 H 4.58 Absolute Lymphs (auto) 2.91 3.30 H Creatinine C-Reactive Protein 149.5 H Total Protein Albumin 05/11/18 05/12/18 05/12/18 04:35 04:20 04:20 WBC 8.03 Hgb 10.3 L Plt Count 289 Absolute Neuts (auto) 3.99 Absolute Lymphs (auto) 3.09 H Creatinine 0.7 0.6 C-Reactive Protein Total Protein 5.8 L Albumin 3.1 L Laboratory Tests 05/11/18 07:40 Vancomycin Trough 12.0 - Physical Exam General Appearance: alert, no apparent distress, non-toxic EENT: No scleral icterus Respiratory: lungs clear, normal breath sounds, No respiratory distress, No crackles, No wheezing Neck: full range of motion, supple Cardiac/Chest: regular rate, rhythm, systolic murmur, No bradycardia, No tachycardia, No diastolic murmur Extremities: No swelling, No erythema Abdomen: non-tender, soft, No distended, No guarding Skin: No rash Neuro/Psych: alert, normal mood/affect, oriented x 3, No confused - Time Spent With Patient Time Spent with Patient: greater than 35 minutes Time Spent with Patient: Greater than 35 minutes spent on this patients care, greater than 50% of time spent counseling, educating, and coordinating care regarding the above mentioned plan. ICD10 Worksheet Patient Problems: Problems Problem Status Onset Cellulitis of toe of right foot Acute Cellulitis of foot Active Abscess of toe of right foot Acute Arthrodesis status Acute Chest pain Acute Lumbar radiculitis Acute Lumbar stenosis Acute Olecranon bursitis of left elbow Acute
--- NOTE | 2018-05-12 15:28 | HOSPPROG ---
Hospitalist Progress Note Assessment/Plan: 72y female with c/o right great toe infection. She was noted to have a streptococcal bacteremia complicated with her hx of a TAVR in 2018. First encounter, chart reviewed. *right toe cellulitis w probable osteomyelitis -s/p right great toe resection *Streptoccocal bacteremia -on vancomycin -will need a PICC when bacteremia resolved *Aortic stenosis w hx of TAVR in 05/2017 -on Coumadin *recurrent septic bursitis -on suppressive therapy w Bactrim #Leukocytosis -improved on setting of infection #Hx PE in 2013 -on Coumadin -subtherapeutic (asked pharmacy to dose) -on tid heparin #CKD -cont to follow #Lupus,hx of connective tissue disease -cont prednisone #plan: cont abx and treatment above Subjective: Patient isn't having much pain including her great toe that was removed. Objective: Vital Signs Temp Pulse Resp BP Pulse Ox 36.7 C 87 16 123/72 H 91 L 05/12/18 12:00 05/12/18 12:00 05/12/18 12:00 05/12/18 12:00 05/12/18 12:00 Microbiology 05/11/18 13:06 Gram Stain - Final Toe - Tissue 05/11/18 13:06 Gram Stain - Final Toe - Tissue Laboratory Results 05/12/18 04:20 05/12/18 04:20 05/11/18 05/12/18 05/13/18 05:59 05:59 05:59 Intake Total 350 870 Output Total 753 Balance 350 117 PT 14.0 SEC (12.0-15.0) 05/12/18 04:20 INR 1.06 (0.83-1.16) 05/12/18 04:20 - Physical Exam Constitutional: chronically ill appearing, obese Eyes: PERRL Ears, Nose, Mouth, Throat: hearing normal Cardiovascular: regular rate and rhythym, systolic murmur, edema (bilateral lower ext) Respiratory: no respiratory distress Skin: warm Musculoskeletal: generalized weakness Neurologic: AAOx3 Psychiatric: interacting appropriately ICD10 Worksheet Patient Problems: Problems Problem Status Onset Cellulitis of toe of right foot Acute Cellulitis of foot Active Abscess of toe of right foot Acute Arthrodesis status Acute Chest pain Acute Lumbar radiculitis Acute Lumbar stenosis Acute Olecranon bursitis of left elbow Acute
[2018-05-12] MEDS: WARFARIN SODIUM 2 MG TAB PO SCH (17:06)
[2018-05-12] MEDS: LISINOPRIL 20 MG TAB PO SCH (21:12)
[2018-05-13 05:46] LABS: PROTIME(PATIENT) 13.4 SEC (12.0-15.0)
[2018-05-13] MEDS: predniSONE 5 MG TAB PO SCH (06:00)
[2018-05-13] MEDS: OXYCODONE/APAP 5/325 TAB PO SCH ×4 (06:00→23:20)
[2018-05-13] MEDS: morphINE SR 30 MG TAB PO SCH ×3 (06:00→23:21)
[2018-05-13] MEDS: PREGABALIN 150 MG CAP PO SCH ×2 (06:00→15:36)
[2018-05-13] MEDS: HEPARIN 5,000 UNIT/0.5 ML INJ SC SCH (06:01)
[2018-05-13] MEDS: clonazePAM 1 MG TAB PO SCH (06:01)
[2018-05-13] MEDS: VANCOMYCIN HCL/NORMAL SALINE 250 ML IV SCH (07:49)
[2018-05-13] MEDS: SERTRALINE HCL 25 MG TAB PO SCH (07:49)
[2018-05-13] MEDS: MAGNESIUM OXIDE PO SCH (07:51)
[2018-05-13] MEDS ORDERED: ALTEPLASE 2 MG VIAL IVP PRN (08:41)
[2018-05-13] MEDS ORDERED: D5W IV SCH (10:30)
[2018-05-13] MEDS ORDERED: VANCOMYCIN IV SCH (10:30)
--- NOTE | 2018-05-13 10:43 | PCMIDPN ---
Assessment/Plan: Assessment/Plan: * S. mitis/oralis bacteremia associated with right great toe infection status post amputation: Clinically improved with IV antibiotic therapy and post amputation. Blood cultures with identification of streptococcal species as S. mitis/oralis. Toe culture is also growing alpha hemolytic Streptococcus with this being likely etiology for patient's bacteremia. Echocardiogram does not show any overt evidence of endocarditis with underlying TAVR in place. Suspect this will be of low likelihood based on infections origin being related to skin and soft tissue infection. Repeat blood cultures are pending to document clearing of bacteremia. Will plan 2 weeks of vancomycin with administration by continuous infusion with careful monitoring of renal function as patient did develop increased creatinine with use of vancomycin several years ago. Side effects of vancomycin including potential for allergic reactions, rash, kidney toxicity, laboratory abnormalities, or hearing loss discussed with patient. Will proceed with PICC line placement today. If antibiotic arrangements can be put into place, okay for discharge from Infectious Disease perspective with plans for follow-up in my office next week. * Recurrent MSSA septic bursitis of left elbow: No recurrent disease on suppressive Bactrim. Bactrim can be withheld until patient has completed course of vancomycin as this will provide same effect. Time spent, greater than 35 min, of which greater than half was spent in education/counseling/coordination of care related to bacteremia, toe infection and plan of care including continuous infusion with vancomycin. Care coordinated with patient, Vero Mcadams, [employer], pharmacy, and case management. 05/13/18 10:40 05/13/18 10:44 Subjective: Patient without significant complaints. Well known to me from previous care as an outpatient. Eager to go home. Objective: Vital Signs Temp Pulse Resp BP Pulse Ox 36.6 C 74 16 125/74 H 91 L 05/13/18 07:35 05/13/18 07:35 05/13/18 07:35 05/13/18 07:35 05/13/18 07:35 Microbiology 05/11/18 13:06 Gram Stain - Final Toe - Tissue 05/11/18 13:06 Gram Stain - Final Toe - Tissue Laboratory Results 05/12/18 04:20 05/12/18 04:20 05/12/18 05/13/18 05/14/18 05:59 05:59 05:59 Intake Total 870 500 Output Total 753 800 Balance 117 -300 ESR 45 MM/HR (0-30) H 05/10/18 04:34 C-Reactive Protein 149.5 mg/L (<10.0) H 05/10/18 04:34 - Physical Exam General Appearance: alert, no apparent distress EENT: No scleral icterus, No thrush, No conjunctival petechiae Respiratory: lungs clear, No respiratory distress Cardiac/Chest: regular rate, rhythm, systolic murmur (2/6 throughout) Extremities: inflammation (Right great toe amputation site with minimal surrounding erythema; no cellulitis over foot) Abdomen: non-tender, No distended Skin: No rash ICD10 Worksheet Patient Problems: Problems Problem Status Onset Cellulitis of toe of right foot Acute Cellulitis of foot Active Abscess of toe of right foot Acute Arthrodesis status Acute Chest pain Acute Lumbar radiculitis Acute Lumbar stenosis Acute Olecranon bursitis of left elbow Acute
--- NOTE | 2018-05-13 10:49 | PDIAF ---
- Diagnosis Diagnosis: Streptococcal bacteremia, osteomyelitis right great toe Code Status: Full Code - Medication Management Reed Cleaner Antibiotics: Vancomycin 2 g IV Q 24 hr by continuous infusion [facility] Antibiotic Stop Date: 05/26/18 Discharge Medications: electronically signed and located in the Home Medication List. PICC Care - Routine: Yes - Orders Services needed: Home [facility] Care Face to Face: I certify that this patient was under my care and that I had the required [id number] encounter meeting the encounter requirements on the discharge day. My findings support the fact that the patient is homebound as defined in Home Care Face to Face Continued: CMS Chapter 7 Medicare Benefits Manual 30.1.1 , The condition of the patient is such that there exists a normal inability to leave home and consequently, leaving home would require a considerable and taxing effort. Isolation Type: None - Labs/Radiology CBC w/diff Date: 05/15/18 (Q ) CMP Date: 05/15/18 (Q ) Creatinine Date: 05/19/18 (Q Saturday) Vanco Random Date: 05/15/18 (Q Saturday, ) Call or Fax Lab and Imaging Results to: Dr. Rosen, - Follow Up Care Current Providers and Referrals: Antony Genao MD [Primary Care Provider] - As per Instructions Richard Rosen MD [Medical Doctor] - 05/22/18 1:30 pm
[2018-05-13] MEDS: POTASSIUM CL 20 MEQ TAB PO SCH (11:56)
--- NOTE | 2018-05-13 15:03 | ASMTCMCOM ---
CM Note CM Note Notes: CM discussed pts case w/ Dr. Rosen and Vero Mcadams NP. Pt will require 2gram iv vanco continuous until 05/26. CM made a referral to [facility] and [facility]. Both are able to accept. CM to follow. Plan: [facility] and [facility] Date Signed: 05/13/2018 03:02 PM Electronically Signed By:ALEXEI Hemphill
[2018-05-13] MEDS: [UNRECOGNIZED DRUG - OTHER] IV SCH (15:36)
[2018-05-13] MEDS: VANCOMYCIN IV SCH (15:36)
[2018-05-13] MEDS: NS IV SCH (15:36)
[2018-05-13] MEDS ORDERED: WARFARIN SODIUM 4 MG TAB PO ONE (16:00)
--- NOTE | 2018-05-13 16:53 | HOSPPROG ---
Hospitalist Progress Note Assessment/Plan: 72y female with c/o right great toe infection. She was noted to have a streptococcal bacteremia complicated with her hx of a TAVR in 2018. First encounter, chart reviewed. *right toe cellulitis w probable osteomyelitis -s/p right great toe resection *Streptoccocal bacteremia -on vancomycin -PICC ordered *Aortic stenosis w hx of TAVR in 05/2017 -stable *recurrent septic bursitis -on suppressive therapy w Bactrim (this can be held while on vancomycin) #Leukocytosis -improved #Hx PE in 2013 -on Coumadin -subtherapeutic (asked pharmacy to dose) -on tid heparin #diarrhea -ongoing-will check for c diff #CKD -cont to follow #Lupus,hx of connective tissue disease -cont prednisone #plan: met w the patient w Dr Rosen earlier today, hopefully was going to dc, but now has diarrhea-will check for c diff. If she is stable in the morning, could consider dc. Subjective: Antionette is anxious to go home. Objective: Vital Signs Temp Pulse Resp BP Pulse Ox 36.4 C 76 16 114/62 91 L 05/13/18 16:00 05/13/18 16:00 05/13/18 16:00 05/13/18 16:00 05/13/18 16:00 Microbiology 05/11/18 13:06 Gram Stain - Final Toe - Tissue 05/11/18 13:06 Gram Stain - Final Toe - Tissue Laboratory Results 05/12/18 04:20 05/12/18 04:20 05/12/18 05/13/18 05/14/18 05:59 05:59 05:59 Intake Total 870 500 Output Total 753 800 Balance 117 -300 PT 13.4 SEC (12.0-15.0) 05/13/18 04:40 INR 1.00 (0.83-1.16) 05/13/18 04:40 - Physical Exam Constitutional: appears nourished, chronically ill appearing Eyes: PERRL Ears, Nose, Mouth, Throat: hearing normal Cardiovascular: regular rate and rhythym Respiratory: no respiratory distress Gastrointestinal: normoactive bowel sounds Skin: warm Musculoskeletal: generalized weakness Neurologic: AAOx3 Psychiatric: interacting appropriately ICD10 Worksheet Patient Problems: Problems Problem Status Onset Cellulitis of toe of right foot Acute Cellulitis of foot Active Abscess of toe of right foot Acute Arthrodesis status Acute Chest pain Acute Lumbar radiculitis Acute Lumbar stenosis Acute Olecranon bursitis of left elbow Acute
[2018-05-13] MEDS: AMITRIPTYLINE TP PRN ×2 (17:29→23:21)
[2018-05-13] MEDS: LISINOPRIL 20 MG TAB PO SCH (20:30)
[2018-05-14] MEDS: OXYCODONE/APAP 5/325 TAB PO SCH ×2 (05:54→12:05)
[2018-05-14] MEDS: clonazePAM 1 MG TAB PO SCH (05:54)
[2018-05-14] MEDS: predniSONE 5 MG TAB PO SCH (05:54)
[2018-05-14] MEDS: PREGABALIN 150 MG CAP PO SCH (05:54)
[2018-05-14] MEDS: morphINE SR 30 MG TAB PO SCH ×2 (05:54→12:05)
[2018-05-14 06:44] LABS: PROTIME(PATIENT) 13.4 SEC (12.0-15.0)
[2018-05-14 08:55] VITALS: BP 129/77
[2018-05-14] MEDS ORDERED: [UNRECOGNIZED DRUG - REMARK] MISC SCH (09:00)
[2018-05-14] MEDS: SERTRALINE HCL 25 MG TAB PO SCH (09:03)
[2018-05-14] MEDS: MAGNESIUM OXIDE PO SCH (09:06)
--- NOTE | 2018-05-14 10:32 | PCMIDPN ---
Assessment/Plan: Assessment: 72-year-old woman with streptococcal bloodstream infection complicating aortic valve repair with a TAVR. Improved with likely clearance of bloodstream infection, unlikely to represent endocarditis. Diarrhea has resolved with no symptoms to suggest C diff colitis. Follow up with infectious diseases as planned. 1. Streptococcus oralis/mitis bloodstream infection, source right great toe 2. Right great toe cellulitis with probable osteomyelitis, status post right great toe resection 05/19/2018 3. History of aortic valve replacement with TAVR, 05/19/2017 4. History recurrent septic bursitis, suppressive therapy with Bactrim 5. History of mixed connective tissue disease, continues to take prednisone 2.5 mg daily 6. History of pulmonary embolism in 2013 7. History of MSSA infection Plan: 1. Continue vancomycin 2 g q24 hours by continuous infusion; goal level 10-15 2. Follow-up with infectious diseases arranged 3. Discussed in detail potential side effects of vancomycin which include rash, antibiotic associated diarrhea, C diff colitis Darrin Ivey MD Infectious Diseases 05/14/18 10:29 Subjective: No fever or chills. Remained inpatient due to a bout of diarrhea last evening, which has resolved. No abdominal pain or rash. Objective: Vital Signs Temp Pulse Resp BP Pulse Ox 36.6 C 82 16 129/77 H 92 05/14/18 08:00 05/14/18 08:00 05/14/18 08:00 05/14/18 08:00 05/14/18 08:00 Microbiology 05/11/18 13:06 Gram Stain - Final Toe - Tissue 05/11/18 13:06 Gram Stain - Final Toe - Tissue Laboratory Results 05/12/18 04:20 05/12/18 04:20 05/13/18 05/14/18 05/15/18 05:59 05:59 05:59 Intake Total 500 Output Total 800 Balance -300 ESR 45 MM/HR (0-30) H 05/10/18 04:34 C-Reactive Protein 149.5 mg/L (<10.0) H 05/10/18 04:34 Medications Generic Name Dose Route Start Last Admin Trade Name Freq PRN Reason Stop Dose Admin Vancomycin HCl 2 gm/ Sodium 240 mls @ 10 mls/hr 05/13/18 12:30 05/13/18 15:36 Chloride 240 ml/ Miscellaneous IV 06/12/18 12:29 240 mls Q24H [facility] Discontinued Medications Generic Name Dose Route Start Last Admin Trade Name Freq PRN Reason Stop Dose Admin Piperacillin/Tazobactam/Dextrose 50 mls @ 100 mls/hr 05/10/18 06:00 05/11/18 05:23 Zosyn 3.375 Gm (Premix) IV 06/09/18 05:59 50 mls Q8HRS [facility] Protocol Vancomycin/Sodium Chloride 250 mls @ 250 mls/hr 05/09/18 19:23 05/09/18 19:59 Vancomycin 1 Gm (Premix) IV 05/09/18 20:22 250 mls [facility] Protocol Vancomycin HCl 1 each 05/09/18 23:45 Vancomycin Pharmacy To Dose, 15-20 Mcg/Ml [facility] 11/05/18 23:44 AD [facility] Protocol Vancomycin/Sodium Chloride 250 mls @ 250 mls/hr 05/10/18 08:00 05/10/18 08:41 Vancomycin 1 Gm (Premix) IV 06/09/18 07:59 250 mls Q12H [facility] Vancomycin/Sodium Chloride 250 mls @ 250 mls/hr 05/10/18 20:30 05/13/18 07:49 Vancomycin 1 Gm (Premix) IV 06/09/18 20:29 250 mls Q12H [facility] Microbiology 05/11/18 13:06 Toe - Tissue Gram Stain - Final 05/11/18 13:06 Toe - Tissue Gram Stain - Final 05/12/18 09:20 Blood Blood Culture - Preliminary 05/12/18 09:14 Blood Blood Culture - Preliminary 05/11/18 13:06 Toe - Tissue Anaerobic Culture - Preliminary Streptococcus Mitis/Oralis Anaerococcus Murdochii 05/11/18 13:06 Toe - Tissue Anaerobic Culture - Preliminary Streptococcus Mitis/Oralis Laboratory Tests 05/10/18 05/11/18 05/11/18 04:34 04:35 07:40 WBC 11.92 H 8.94 Hgb 11.3 L 11.1 L Plt Count 298 Absolute Neuts (auto) 4.58 Absolute Lymphs (auto) 2.91 3.30 H Vancomycin Trough 12.0 05/12/18 04:20 WBC 8.03 Hgb 10.3 L Plt Count 289 Absolute Neuts (auto) 3.99 Absolute Lymphs (auto) 3.09 H Vancomycin Trough - Physical Exam General Appearance: alert, no apparent distress, non-toxic EENT: No scleral icterus Extremities: No swelling, No erythema Skin: No rash Neuro/Psych: normal mood/affect, oriented x 3, No confused ICD10 Worksheet Patient Problems: Problems Problem Status Onset Cellulitis of toe of right foot Acute Cellulitis of foot Active Abscess of toe of right foot Acute Arthrodesis status Acute Chest pain Acute Lumbar radiculitis Acute Lumbar stenosis Acute Olecranon bursitis of left elbow Acute
--- NOTE | 2018-05-14 11:11 | HOSPPROG ---
Hospitalist Progress Note Assessment/Plan: 72y female with c/o right great toe infection. She was noted to have a streptococcal bacteremia complicated with her hx of a TAVR in 2018. *right toe cellulitis w probable osteomyelitis -s/p right great toe resection *Streptoccocal bacteremia -on vancomycin -PICC ordered *Aortic stenosis w hx of TAVR in 05/2017 -stable *recurrent septic bursitis -on suppressive therapy w Bactrim (this can be held while on vancomycin) #Leukocytosis -improved #Hx PE in 2013 -on Coumadin -subtherapeutic (asked pharmacy to dose) #diarrhea -c diff negative #CKD -cont to follow #Lupus,hx of connective tissue disease -cont prednisone #plan: dc home w f/u w ID and podiatry Subjective: Antionette is feeling fine Objective: Vital Signs Temp Pulse Resp BP Pulse Ox 36.6 C 82 16 129/77 H 92 05/14/18 08:00 05/14/18 08:00 05/14/18 08:00 05/14/18 08:00 05/14/18 08:00 Microbiology 05/11/18 13:06 Gram Stain - Final Toe - Tissue 05/11/18 13:06 Gram Stain - Final Toe - Tissue Laboratory Results 05/12/18 04:20 05/12/18 04:20 05/13/18 05/14/18 05/15/18 05:59 05:59 05:59 Intake Total 500 Output Total 800 Balance -300 PT 13.4 SEC (12.0-15.0) 05/14/18 05:55 INR 1.00 (0.83-1.16) 05/14/18 05:55 - Physical Exam Constitutional: no apparent distress, appears nourished, not in pain Eyes: PERRL Ears, Nose, Mouth, Throat: hearing normal Respiratory: no respiratory distress Skin: warm Musculoskeletal: full muscle strength Neurologic: AAOx3 Psychiatric: interacting appropriately ICD10 Worksheet Patient Problems: Problems Problem Status Onset Cellulitis of toe of right foot Acute Cellulitis of foot Active Abscess of toe of right foot Acute Arthrodesis status Acute Chest pain Acute Lumbar radiculitis Acute Lumbar stenosis Acute Olecranon bursitis of left elbow Acute
--- NOTE | 2018-05-14 11:21 | PDIAF ---
- Diagnosis Diagnosis: Streptococcal bacteremia, osteomyelitis right great toe Code Status: Full Code - Medication Management Media Coordinator Antibiotics: Vancomycin 2 g IV Q 24 hr by continuous infusion Nursing Home Antibiotic Stop Date: 05/26/18 Discharge Medications: electronically signed and located in the Home Medication List. PICC Care - Routine: Yes - Orders Services needed: Home Care, Registered Nurse Home Care Face to Face: I certify that this patient was under my care and that I had the required [id number] encounter meeting the encounter requirements on the discharge day. My findings support the fact that the patient is homebound as defined in Home Care Face to Face Continued: CMS Chapter 7 Medicare Benefits Manual 30.1.1 , The condition of the patient is such that there exists a normal inability to leave home and consequently, leaving home would require a considerable and taxing effort. Isolation Type: None Diet Recommendation: no restrictions on diet Diet Texture: Regular Texture Diet Additional Instructions: Hold Bactrim while on vancomycin (you will need to restart this medication once your finish vancomycin) foot dressings as done here see Dr Burk this week your Coumadin dose was increased to 4 mg/ further discuss w Dr Genao INR needs to be monitored closely while on antibiotics - Labs/Radiology CBC w/diff Date: 05/15/18 (Q ) CMP Date: 05/15/18 (Q ) Creatinine Date: 05/19/18 (Q Saturday) PT/INR Date: 05/16/18 (q 3 days till stable) Call or Fax Lab and Imaging Results to: Dr. Rosen, - Follow Up Care Current Providers and Referrals: Richard Rosen MD [Medical Doctor] - 05/22/18 1:30 pm Antony Genao MD [Primary Care Provider] - As per Instructions Reggie Morocho DPM [Doctor of Podiatric Medicine] -
--- NOTE | 2018-05-14 11:34 | ASMTDCNOTE ---
Case Management Discharge Discharge Order Complete? Answers: Yes Patient to Obtain Answers: Independently Medications Transportation Arranged Answers: Family/Friends EMTALA Complete Answers: No Case Management Transport Answers: No Form Complete Faxed Final Orders Answers: Yes Agency/Facility Transfer Answers: Yes Report Printed & Faxed to Receiving Agency Family Notified Answers: No Discharge Comments Notes: Pts case discussed w/ Vero Mcadams NP and TRAY Shipman. Pt is being d/c'd today. CM notified [facility] of the d/c. [facility] will start her care tomorrow. Pt is discharging home today w/ iv kodio ball to run continuously. DC orders sent to [facility]. [facility] will deliver meds today. No other needs at this time. CM available for changes. Plan: [facility]; [facility] and [facility] Date Signed: 05/14/2018 11:34 AM Electronically Signed By:ALEXEI Hemphill
--- NOTE | 2018-05-14 11:40 | ASDISCHSUM ---
Discharge Information Plan Status:Home with Home Health Medically Cleared to Leave:05/13/2018 Discharge Date:05/13/2018 CM D/C Disposition: ADT D/C Disposition: Projected Discharge Date:05/14/2018 11:00 AM Transportation at D/C: Discharge Delay Reason: Follow-Up Date:05/14/2018 11:00 AM Discharge Slot: Final Diagnosis: Placement Information Referral Type:Home Infusion Referral ID:[id number] Provider Name:[facility] Address 1:[address] Address 2: City:[place] Selection Factors: State:[place] Referral Type:*Home Health Care Services Referral ID:[id number] Provider Name:[facility] Address 1:[address] Address 2: City:[place] Selection Factors: State:[place] Patient Contact Information Contact Name:MYKEL Relationship: Address:[address] City:[place] Alternate Phone: [facility]/Zip Code:[place] [address] Email: Financial Information Financial Class:Medicare Primary Plan Desc:MEDICARE INPATIENT Primary Plan Number:[id number] Secondary Plan Desc:KADICONNIE BETHANIE [facility] Secondary Plan Number:[id number] Assessment Information LACE LACE Length of stay for Answers: 4-6 days current admission Acuity / Level of Answers: Yes Care: Did the patient have an inpatient admission? Comorbidities - select Answers: Opioid dependence all that apply / Chronic pain Other Notes: SLE, PE, aortic stenosi s (TAVR in May 2017), fibromyalgia # of Emergency department Answers: 1-2 visits in the last 6 months Score: 13 Date Signed: 05/14/2018 11:39 AM Electronically Signed By:ALEXEI Hemphill BC CM Progress Note CM Note CM Note Notes: Pt admitted for right greater toe fracture and infection, most likely needing amputation. Pt has a history of osteomyelitis and prior right 3rd toe amputation. MRI to be completed today. Podiatry to see pt tomorrow morning and possible amputate toe tomorrow. ID consulted. Pt lives with her Adi. Pt has a history of SLE, PE, aortic stenosis (TAVR in 05/2017), fibromyalgia. Exact DC needs TBD. PT and Wound care orders placed. CM to follow. Date Signed: 05/10/2018 02:49 PM Electronically Signed By:Antonette Potts RN BC CM Progress Note CM Note CM Note Notes: Pts case discussed w/ Vero Mcadams NP and Ellen, physical therapist. Ellen reports that pt can d/c home without any needs. It is uncertain if pt will need ivabx at time of d/c. CM available for dc needs. Date Signed: 05/12/2018 09:51 AM Electronically Signed By:ALEXEI Hemphill BC CM Progress Note CM Note CM Note Notes: CM discussed pts case w/ Dr. Rosen and Vero Mcadams NP. Pt will require 2gram iv vanco continuous until 05/26. CM made a referral to [facility] and [facility]. Both are able to accept. CM to follow. Plan: TRAY THORNTON and Mandi Date Signed: 05/13/2018 03:02 PM Electronically Signed By:ALEXEI Hemphill Case Management Discharge Plan Note Case Management Discharge Discharge Order Complete? Answers: Yes Patient to Obtain Answers: Independently Medications Transportation Arranged Answers: Family/Friends EMTALA Complete Answers: No Case Management Transport Answers: No Form Complete Faxed Final Orders Answers: Yes Agency/Facility Transfer Answers: Yes Report Printed & Faxed to Receiving Agency Family Notified Answers: No Discharge Comments Notes: Pts case discussed w/ Vero Mcadams NP and TRAY Shipman. Pt is being d/c'd today. CM notified [facility] of the d/c. [facility] will start her care tomorrow. Pt is discharging home today w/ iv vanco ball to run continuously. DC orders sent to [facility]. [facility] will deliver meds today. No other needs at this time. CM available for changes. Plan: NORBERTO; TRAY and Mandi Date Signed: 05/14/2018 11:34 AM Electronically Signed By:ALEXEI Hemphill Intervention Information
--- NOTE | 2018-05-14 12:00 | GDS ---
[f rep st] DISCHARGE SUMMARY DISCHARGE DIAGNOSES: 1. Right toe cellulitis with osteomyelitis. 2. Streptococcal bacteremia. 3. Aortic stenosis with history of a transcatheter aortic valve replacement in 2018. 4. Recurrent septic bursitis. 5. Leukocytosis. 6. History of pulmonary embolism in 2013. 7. Diarrhea. 8. Chronic kidney disease. 9. History of connective disease, lupus. CONSULTATION: 1. Jamaica Molina MD. 2. Dr. Reggie Morocho. HISTORY: Briefly, the patient is a 72-year-old woman with a past medical history of SLE and prior ri [facility] 2nd toe amputation for osteomyelitis. She presented to the hospital via her equities trader's office after worsening right 1st toe infection. X-ray showed evidence of possible pathologic fracture in th e setting of osteomyelitis. She was seen and evaluated by the infectious disease team and subsequent ly had an MRI performed. This showed evidence of cellulitis in the great toe and medial aspect of th e 2nd toe. She has diffuse bone marrow edema in the distal phalanx which could represent osteomyelit is. Subsequently, she was seen and evaluated by the equities trader, Dr. Reggie Morocho. And on May 11 she had amputation of her right great toe due to osteomyelitis. She has improved throughout he r stay. She will be discharged home today with home care. She will be on a continuous infusion of v ancomycin. HOSPITAL COURSE PER PROBLEM: 1. Right toe cellulitis with osteomyelitis, status post right great toe resection. 2. Streptococcal bacteremia, on vancomycin. 3. Aortic stenosis with history of a TAVR in 2018, echo stable. 4. Recurrent septic bursitis. She is on suppressive therapy with Bactrim and this can be held while she is on the vancomycin. 5. Leukocytosis, improved. 6. History of pulmonary emboli in 2003. Her INR has been subtherapeutic. She had been on 2 mg on a dmission, we have increased this to 4 mg. We will have her follow up with Dr. Genao and have her INR monitored closely. 7. Diarrhea. Clostridium difficile is negative. 8. Chronic kidney disease, stable. 9. History of connective tissue disease, lupus. Resume prednisone. DISCHARGE CONDITION: Stable. Blood pressure is 129/77, heart rate of 82, respiratory rate is 16, O2 sats on room air 92%, temperature is 36.6 Celsius. MEDICATIONS AT DISCHARGE: Please see the EMR. DISCHARGE INSTRUCTIONS: 1. Stay off the Bactrim while she is on the vancomycin and this will need to be resumed once she fin ishes the vancomycin. 2. Follow up with Dr. Rosen as scheduled. 3. Follow up with Dr. Morocho this week. 4. Continue dressing changes per Dr. Morocho. Greater than 30 minutes discharging and coordinating the patient's care. /[id number]/MODL
[2018-05-14] MEDS: VANCOMYCIN IV SCH (12:05)
[2018-05-14] MEDS: [UNRECOGNIZED DRUG - OTHER] IV SCH (12:05)
[2018-05-14] MEDS: NS IV SCH (12:05)
[2018-05-14] MEDS: POTASSIUM CL 20 MEQ TAB PO SCH (12:06)
[2018-05-14] MEDS ORDERED: WARFARIN SODIUM 2 MG TAB PO SCH (16:00)
== END 2018-05-14 12:50 | disposition home health service (06) | DRG 580 ==
LOC: F3E 22:05 → OBSVTOIN 05-10 14:03
PROVIDERS: ADMIT Internal Medicine; ATTEND Student in an Organized Health Care Education/Training Program
PROC: 0Y6P0Z0 Detachment at Right 1st Toe, Complete, Open Approach (ICD-10-PCS; principal; 2018-05-11 10:45)
PROC: 02HV33Z Insertion of Infusion Device into Superior Vena Cava, Percutaneous Approach (ICD-10-PCS; 2018-05-13)
DX: L03.031 Cellulitis of right toe (principal); M86.9 Osteomyelitis, unspecified; R78.81 Bacteremia; B95.5 Unspecified streptococcus as the cause of diseases classified elsewhere; E20.9 Hypoparathyroidism, unspecified; M71.9 Bursopathy, unspecified; R19.7 Diarrhea, unspecified; I12.9 Hypertensive chronic kidney disease with stage 1 through stage 4 chronic kidney disease, or unspecified chronic kidney disease; N18.9 Chronic kidney disease, unspecified; M32.9 Systemic lupus erythematosus, unspecified; G62.9 Polyneuropathy, unspecified; Z95.3 Presence of xenogenic heart valve; Z86.711 Personal history of pulmonary embolism; Z89.421 Acquired absence of other right toe(s); Z79.01 Long term (current) use of anticoagulants; Z79.2 Long term (current) use of antibiotics
CPT/HCPCS: 96365; 97116-GP; 97161-GP; C1751; G0378; J1644; J2250; J2405; J2543; J2704; J3010; J3370; J7512

== ENCOUNTER → 2018-05-21 | Outpatient (CLI) | payer OTHER | LOC: FIMAGING 16:20 | PROVIDERS: ATTEND Physician Assistant | DX: Z09 Encounter for follow-up examination after completed treatment for conditions other than malignant neoplasm (principal); Z98.1 Arthrodesis status ==